=== PATIENT | female | born 1955 | race Caucasian/White ===

== ENCOUNTER 2022-11-21 16:25 | Outpatient (REF) | payer MEDICAID, SELFPAY ==
--- NOTE | ~2022-11-21 | US_ITS ---
EXAMINATION: US PELVIS CLINICAL INFORMATION: Postmenopausal bleeding. COMPARISON: None available. TECHNIQUE: Ultrasound of the pelvis is performed using both transabdominal and transvaginal transducers along with Doppler. Transvaginal imaging is performed due to inadequate visualization transabdominally. FINDINGS: Uterus: The uterus is anteverted and measures 6.7 x 2.5 x 3.3 cm. The double wall endometrial thickness is 4 mm. The uterus is smooth in contour and has normal myometrial echogenicity. No visible fibroid. Adnexa: Neither ovary is seen. US/US pelvic and transvaginal IMPRESSION: Nonvisualization of the ovaries. No uterine mass. Endometrial stripe measures 4 mm.
== END 2022-11-21 16:26 | disposition home or self-care (01) ==
LOC: HO.US 16:25
PROVIDERS: PCP Internal Medicine; Visit Provider Internal Medicine
DX: N95.0 Postmenopausal bleeding (principal)
CPT/HCPCS: 76830; 76856

== ENCOUNTER 2022-12-18 10:40 | Outpatient (REF) | payer MEDICAID, SELFPAY ==
--- NOTE | ~2022-12-18 | XR_ITS ---
EXAMINATION: LEFT KNEE AND LUMBAR SPINE CLINICAL INFORMATION: Pain COMPARISON: January 19, 2018 TECHNIQUE: 4 view left knee and three-view lumbar sacral spine. FINDINGS: Left knee: There is some mild spurring about the medial and lateral joint space compartments without significant narrowing. There is severe narrowing of the lateral patellofemoral joint space with marginal spurring. This has progressed since prior study of January 19, 2018. No effusion is appreciated. There is some calcification seen about the posterior knee which may represent calcification within popliteal fossa cyst. Lumbosacral spine: No acute fracture or spondylolysis is appreciated. There is a mild grade 1 spondylolisthesis L4-L5. There is some mild narrowing of the L5-S1 disc space. There is facet arthropathy present at the L4-S1 levels on the right. There is mild scoliosis convex left. Pedicles appear intact. No evidence of widening or fusion of sacroiliac joints. There is question of an old coccygeal fracture. XR/XR lumbar spine 2-3V IMPRESSION: Severe degenerative change of the patellofemoral joint. Question popliteal fossa cyst with calcification. Degenerative change of the lumbosacral spine as described.
--- NOTE | ~2022-12-18 | XR_ITS ---
EXAMINATION: LEFT KNEE AND LUMBAR SPINE CLINICAL INFORMATION: Pain COMPARISON: January 19, 2018 TECHNIQUE: 4 view left knee and three-view lumbar sacral spine. FINDINGS: Left knee: There is some mild spurring about the medial and lateral joint space compartments without significant narrowing. There is severe narrowing of the lateral patellofemoral joint space with marginal spurring. This has progressed since prior study of January 19, 2018. No effusion is appreciated. There is some calcification seen about the posterior knee which may represent calcification within popliteal fossa cyst. Lumbosacral spine: No acute fracture or spondylolysis is appreciated. There is a mild grade 1 spondylolisthesis L4-L5. There is some mild narrowing of the L5-S1 disc space. There is facet arthropathy present at the L4-S1 levels on the right. There is mild scoliosis convex left. Pedicles appear intact. No evidence of widening or fusion of sacroiliac joints. There is question of an old coccygeal fracture. XR/XR knee LT 4V IMPRESSION: Severe degenerative change of the patellofemoral joint. Question popliteal fossa cyst with calcification. Degenerative change of the lumbosacral spine as described.
== END 2022-12-18 10:41 | disposition home or self-care (01) ==
LOC: HO.HHCX 10:40
PROVIDERS: Visit Provider Internal Medicine
DX: M54.50 Low back pain, unspecified (principal); M25.562 Pain in left knee
CPT/HCPCS: 72100; 73564

== ENCOUNTER → 2023-09-15 11:34 | Outpatient (BNVA) | payer MEDICAID, SELFPAY | PROVIDERS: PCP Internal Medicine; Visit Provider Internal Medicine Nephrology | DX: I12.9 Hypertensive chronic kidney disease with stage 1 through stage 4 chronic kidney disease, or unspecified chronic kidney disease (principal); N18.31 Chronic kidney disease, stage 3a; Z79.899 Other long term (current) drug therapy | CPT/HCPCS: 99202 ==

== ENCOUNTER 2023-09-17 | Outpatient (REF) | payer MEDICAID, SELFPAY ==
[2023-09-18 16:22] LABS: Total Volume 24 Hour Urine 2350 mL
[2023-09-18 16:30] LABS: Creatinine, 24Hr Urine 1.1 G/Day (1.0-2.0); Protein 24 Hr Urine < 165 mg/Day (<150); Protein mg/dL < 7 mg/dL
== END 2023-09-17 00:01 | disposition home or self-care (01) ==
LOC: HO.LNP
PROVIDERS: Visit Provider Internal Medicine Nephrology
DX: I12.9 Hypertensive chronic kidney disease with stage 1 through stage 4 chronic kidney disease, or unspecified chronic kidney disease (principal); N18.30 Chronic kidney disease, stage 3 unspecified
CPT/HCPCS: 84156

== ENCOUNTER 2023-09-23 14:46 | Outpatient (REF) | payer MEDICAID, SELFPAY ==
[2023-09-24 02:34] LABS: CT PCR NOT DETECTED (Not Detect.); NG PCR NOT DETECTED (Not Detect.)
[2023-09-24 12:56] LABS: BV Int Neg Control Negative (Negative); BV Int Pos Control Positive (Positive)
== END 2023-09-23 14:47 | disposition home or self-care (01) ==
LOC: HO.LAB 14:46
PROVIDERS: PCP Internal Medicine; Visit Provider Advanced Practice Midwife
DX: N95.0 Postmenopausal bleeding (principal)
CPT/HCPCS: 0353U; 58100; 87480; 87510; 87624; 87660; 88142; 88305; 99212

== ENCOUNTER 2023-09-23 14:46 | Outpatient (AMB) | payer MEDICAID, SELFPAY ==
--- NOTE | 2023-09-23 14:51 | MHC.OFFVIS ---
Intake Vital Signs 09/23/23 14:52 Weight 246 lb BP 134/78 Intake Visit Reasons: PMB/PCP referral Intake Note: Daughter in Law Meirem Office Coordinator Receptionist Required: Yes Office Coordinator Receptionist Language: Slovak Office Coordinator Receptionist Name: Daughter in Law Information Interpreted: non-clinical & clinical Explosive Operator Grenade: Explosive Operator Grenade Present (Selene) Accompanied by: Daughter Allergies No Known Allergies Allergy (Verified 09/23/23 14:52) HPI HPI Comments History of Present Illness Details Patient is here today for postmenopausal bleeding she bled an episode last year in 2 episodes of slight pink spotting this year. She is not sexually active. No pertinent dock loader records available. Her [id number] (Penny) is present and requested to be her arresting gear operator and not use [place] arresting gear operator services. Refusal form for arresting gear operator services were signed. [facility] Medical History Right foot pain Depression Chronic bilateral low back pain without sciatica Chronic pain of left knee Abdominal pain Vitamin B12 deficiency Dyslipidemia Chronic kidney disease, stage 3b Postmenopause bleeding Varicose veins of both lower extremities with pain Prediabetes Iron deficiency anemia Hypertension Gout Anemia Surgical History H/O section Family History Sister Coronary artery disease Brother Alzheimer disease Maternal Grandmother Liver cancer Social History Alcohol intake: never Patient Tobacco Use Status: Never used Tobacco Female Reproductive History Menstrual Total pregnancies: 6 Full term: 4 Number of Living Children: 4 Ab spontaneous: 2 Review of Systems Const All systems reviewed & are unremarkable except as noted in HPI and below Physical Exam Vital Signs: Last Vital Signs BP 134/78 09/23/23 14:52 Const General: cooperative, healthy appearing and no acute distress Orientation/consciousness: patient oriented x3 GI Inspection: Yes normal to inspection Palpation (GI): Soft to palpation and Other GI palpation findings present (Nontender) Rectal Exam - Female: visual inspection normal General: Yes bladder normal to palpation External Female Exam: normal appearance of the urethra Speculum Exam - Vagina: normal appearance of the vagina, normal palpation, normal vaginal discharge and vagina atrophic Speculum Exam - Cervix: normal appearance of the cervix and normal palpation Bimanual exam- vagina & uterus: normal bimanual exam, normal palpation, uterine size normal, bladder normal to palpation, normal palpation, uterine shape normal and non-tender Bimanual Exam- Adnexa, other: normal adnexae Neuro General: patient oriented x3 Office Procedures Endometrial Biopsy Details: The patient is here today for an endometrial biopsy due to PMB to rule out any pathology including atypical, hyperplasia or cancer cells of the uterus. She was counseled regarding anticipatory guidance for the procedure including the risks for pain, infection, bleeding, perforation, potential injury to the tissues may include the cervix, uterus, tubes, bladder and bowels. These injuries may include further treatment and evaluation including surgery, blood transfusions, antibiotics, hospitalizations and anesthesia. Permanent injury and scarring can occur. She was consented for the procedure, and the consent forms were signed. She is agreeable to have the procedure today. All questions were answered. Endometrial Biopsy Procedure: The patient was placed in the dorsal lithotomy position and a sterile speculum inserted. Using aseptic technique for the procedure. The cervix was cleansed with Betadine x 3 swabs. A single toothed tenaculum was placed on the cervix for stabilization and the uterus was sounded to 5 cm with a 4mm pipelle for 1 pass. Minimal tissue sample retrieved. Patient had difficulty tolerating the procedure and asked for it to be stopped. Minimal bleeding was observed. The tissue sample was placed in formalin in a patient labeled container by staff assisting and sent to the pathology department for processing and interpretation. The patient tolerate the procedure well and was in good condition when leaving the department. Endometrial Biopsy Post Procedure Care: Nothing in the vagina including: tampons, douching or intimacy until all the bleeding has subsided. There may be some post procedure bleeding for several days, this bleeding is usually light and may turn to a light brown or pink color. Mild cramps may occurs. Nothing in the vaginal including: tampons, douching, or intimacy until all the bleeding has subsided. You may take an over the counter mild analgesic such as Tylenol or Advil (if no allergies) per the manufactures recommendation on dosing, frequency, and follow the directions completely. Call the office if any: fever (over 100.4), flu like symptoms, abdominal pain (worse than cramping), foul smelling, infected appearing vaginal discharge, or heavy bleeding. If indicated: Use condoms to prevent and STI's, and only after the bleeding has stopped completely. Discuss options due to the intolerance of the procedure, she is interested in being put to sleep and prefers a female provider. Referral will be placed to [facility] for an endometrial biopsy due to postmenopausal bleeding. All of her questions and concerns were addressed to the best of my ability and shared decision making. She is agreeable to the plan of care. This note is constructed using voice recognition software. While every effort has been made to ensure accuracy, cable tv installer errors may have been included. [id number] Biopsy Results Reviewed Results Reviewed: [address] [address] Ultrasound Report Signed Patient: Cat Hernandez MR#: [id number] : 1955 Acct:[id number] Age/Sex: 67 / F ADM Date: 11/21/22 Loc: .[place] Attending Dr: Andreina Krishna MD Ordering Physician: Andreina Mansfield MD Date of Service: 11/21/22 Procedure(s): US pelvic and transvaginal Accession Number(s): [id number] cc: Andreina Mansfield MD~ EXAMINATION: US PELVIS CLINICAL INFORMATION: Postmenopausal bleeding. COMPARISON: None available. TECHNIQUE: Ultrasound of the pelvis is performed using both transabdominal and transvaginal transducers along with Doppler. Transvaginal imaging is performed due to inadequate visualization transabdominally. FINDINGS: Uterus: The uterus is anteverted and measures 6.7 x 2.5 x 3.3 cm. The double wall endometrial thickness is 4 mm. The uterus is smooth in contour and has normal myometrial echogenicity. No visible fibroid. Adnexa: Neither ovary is seen. US/US pelvic and transvaginal IMPRESSION: Nonvisualization of the ovaries. No uterine mass. Endometrial stripe measures 4 mm. Dictated By: Deondre Ndiaye MD Signed By: <Electronically signed by Deondre Ndiaye MD in OV> 11/24/22 1455 DD/ 1641 TD/TT: Bobbin Cleaner Hand: ALONZO Assessment & Plan Assessment & Plan (1) Postmenopausal bleeding: Code(s): N95.0 - Postmenopausal bleeding Plan Discussed: Referral to [facility] for a female provider to assess the postmenopausal bleeding. Pap smear obtained await results along with the cervical cultures. All of her questions and concerns were addressed to the best of my ability and shared decision making. She is agreeable to the plan of care. This note is constructed using voice recognition software. While every effort has been made to ensure accuracy, cable tv installer errors may have been included. Orders: Orders Bacterial Vaginosis Panel 09/23/23 N95.0 - Postmenopausal bleeding CT NG by PCR 09/23/23 N95.0 - Postmenopausal bleeding Surgical 09/23/23 N95.0 - Postmenopausal bleeding Pap Smear 09/23/23 N95.0 - Postmenopausal bleeding Referrals [facility] FORMER Referral N95.0 - Postmenopausal bleeding Coding Level of Care Code New Pt Level 4 (02561) Diagnoses Postmenopausal bleeding N95.0 CPT Codes Endometrial Biopsy - CPT: 61075-Gigzpycpqhm Biopsy ([id number])
[2023-09-23 14:52] VITALS: BP 134/78
== END 2023-09-23 16:00 | disposition home or self-care (01) ==
LOC: HO.HWS 14:46
PROVIDERS: PCP Internal Medicine; Visit Provider Advanced Practice Midwife
DX: N95.0 Postmenopausal bleeding (principal)
CPT/HCPCS: 58100; 99204

== ENCOUNTER 2023-09-23 15:45 | Outpatient (REF) | payer MEDICAID, SELFPAY ==
[2023-09-29 04:18] LABS: HPV mRNA E6/E7 rflx Not Detected (Not Detected)
== END 2023-09-23 15:46 | disposition home or self-care (01) ==
LOC: HO.LNP 15:45
PROVIDERS: Visit Provider Advanced Practice Midwife
DX: Z12.4 Encounter for screening for malignant neoplasm of cervix (principal); Z11.51 Encounter for screening for human papillomavirus (HPV); N95.0 Postmenopausal bleeding
CPT/HCPCS: 87624; 88142

== ENCOUNTER 2023-09-30 10:04 | Outpatient (REF) | payer MEDICAID, SELFPAY ==
--- NOTE | ~2023-09-30 | US_ITS ---
EXAMINATION: US RETROPERITONEAL LIMITED (RENAL ONLY) CLINICAL INFORMATION: Chronic kidney disease, stage 3 unspecified. Hypertension. COMPARISON: None available. TECHNIQUE: Real-time imaging of the kidneys. Technically limited study secondary to bowel gas and body habitus. FINDINGS: RIGHT KIDNEY: 10.4 x 4.6 x 4.4 cm (SAG x AP x TRV). The parenchyma appears echogenic. No suspicious mass or hydronephrosis. Vascular calcifications are suspected. No definite calculi. LEFT KIDNEY: 10.0 x 4.6 x 4.0 cm (SAG x AP x TRV). The parenchyma appears echogenic. No suspicious mass or hydronephrosis. Vascular calcifications are suspected. No definite calculi. US/US renal BI IMPRESSION: Echogenic renal parenchyma suggestive of chronic kidney disease. No hydronephrosis.
== END 2023-09-30 10:05 | disposition home or self-care (01) ==
LOC: HO.US 10:04
PROVIDERS: PCP Internal Medicine; Visit Provider Internal Medicine Nephrology
DX: N18.30 Chronic kidney disease, stage 3 unspecified (principal)
CPT/HCPCS: 76775

== ENCOUNTER 2023-10-07 15:55 | Outpatient (REF) | payer MEDICAID, SELFPAY ==
--- NOTE | ~2023-10-07 | XR_ITS ---
EXAMINATION: XR knee RT 3V CLINICAL INFORMATION: Reason for Exam pain in RLE x 2 months no injury COMPARISON: 12/18/2022 TECHNIQUE: Four views of the right knee FINDINGS: * Diffuse osteopenia. No acute fracture or dislocation. Severe degenerative changes of the right knee joint with tricompartmental osteophytosis and joint space narrowing. * No soft tissue abnormality. XR/XR knee RT 3V IMPRESSION: Severe degenerative changes of the right knee joint. No acute fracture or dislocation.
--- NOTE | ~2023-10-07 | XR_ITS ---
EXAMINATION: XR lumbar spine 4V min CLINICAL INFORMATION: Reason for Exam radiculopathy to RLE assess for herniation or spondylosis COMPARISON: Lumbar spine radiographs 12/18/2022 TECHNIQUE: 4 views of the lumbar spine FINDINGS: 5 nonrib-bearing lumbar-type vertebral bodies. Vertebral body heights are maintained. Anterolisthesis of L4 on L5 Moderate multilevel degenerative disc disease with loss of disc space height, facet arthropathy and disc osteophyte complexes. This is worst at L4/L5. Paravertebral soft tissues are unremarkable. XR/XR lumbar spine 4V min IMPRESSION: Moderate spondylosis of the lumbar spine, as above detailed.
== END 2023-10-07 15:56 | disposition home or self-care (01) ==
LOC: HO.HHCX 15:55
PROVIDERS: Visit Provider Emergency Medicine
DX: M54.16 Radiculopathy, lumbar region (principal)
CPT/HCPCS: 72110; 73562

== ENCOUNTER 2023-11-03 15:56 | Outpatient (REF) | payer MEDICAID, SELFPAY ==
[2023-11-03 17:53] LABS: MANUAL DIFF FLAG NO
[2023-11-03 18:05] LABS: Basophils Percent Auto 0.6 % (0-2); Eosinophils Absolute Auto 0.1 X10*3/uL (0.0-0.4); Eosinophils Percent Auto 0.9 % (0-4); Hematocrit 38.1 % (37.0-47.0); Hemoglobin 12.3 g/dl (12.0-16.0); Imm Gran Abs Auto 0.02 X10*3/uL (0.00-0.03); Imm Gran Pct Auto 0.3 % (0.0-0.4); Lymphocytes Absolute Auto 1.5 X10*3/uL (1.2-4.9); Lymphocytes Percent Auto 23.1 % (20-40); Mean Corpuscular HGB Conc 32.3 g/dl (31.0-35.0); Mean Corpuscular Hemoglobin 27.3 pg (27.0-33.0); Mean Corpuscular Volume 84.5 fL (80.0-98.0); Mean Platelet Volume 11.7 fL (9.4-12.3); Monocytes Absolute Auto 0.7 X10*3/uL (0.1-1.2); Monocytes Percent Auto 9.7 % (2-11); Neutrophils Absolute Auto 4.4 x10*3/uL (2.0-8.3); Neutrophils Percent Auto 65.4 % (45-73); Platelet Count 262 X10*3/uL (160-400); Red Blood Count 4.51 X10*6/uL (4.20-5.50); Red Cell Distribution Width 13.7 % (11.0-16.0); White Blood Count 6.7 X10*3/uL (4.8-10.8)
[2023-11-03 18:12] LABS: Estimated Average Glucose 114 mg/dL; Hemoglobin A1c % 5.6 % (<6.0)
[2023-11-03 18:49] LABS: Folate 11.7 ng/mL (> or = 4.0); Vitamin B12 1638 pg/mL (200-900)
[2023-11-03 18:51] LABS: Anion Gap 17 (12-20); Blood Urea Nitrogen 32 mg/dL (9-16); Calcium 9.2 mg/dL (8.4-10.2); Carbon Dioxide 26 mmol/L (22-29); Chloride 101 mmol/L (96-108); Estimated Glomerular Filt Rate 45; Glucose Random 80 mg/dL (60-115); Magnesium 2.2 mg/dL (1.6-2.6); Potassium 4.2 mmol/L (3.3-5.1); Sodium 140 mmol/L (135-145); Uric Acid 7.4 mg/dL (2.4-5.7)
[2023-11-03 19:09] LABS: TSH reflex Free T4 0.89 uIU/mL (0.32-4.0); Vitamin D 25-OH Total 51.9 ng/mL (>30)
[2023-11-06 11:49] LABS: Methylmalonic Acid 178 nmol/L (87-318)
== END 2023-11-03 15:57 | disposition home or self-care (01) ==
LOC: HO.HHCL 15:56
PROVIDERS: Visit Provider Internal Medicine
DX: Z00.00 Encounter for general adult medical examination without abnormal findings (principal); M79.604 Pain in right leg; N18.32 Chronic kidney disease, stage 3b
CPT/HCPCS: 36415; 80048; 82306; 82607; 82746; 83036; 83735; 83921; 84443; 84550; 85025

== ENCOUNTER 2024-05-03 11:07 | Outpatient (REF) | payer MEDICAID, SELFPAY ==
[2024-05-03 14:34] LABS: Alanine Aminotransferase 18 U/L (0-31); Albumin Level 4.1 g/dL (3.5-5.0); Alkaline Phosphatase 103 U/L (39-117); Anion Gap 16 (12-20); Aspartate Amino Transferase 21 U/L (5-31); Bilirubin Direct 0.1 mg/dL (0.0-0.5); Bilirubin Total 0.3 mg/dL (0.0-1.0); Blood Urea Nitrogen 31 mg/dL (9-16); Calcium 9.8 mg/dL (8.4-10.2); Carbon Dioxide 29 mmol/L (22-29); Chloride 101 mmol/L (96-108); Cholesterol 187 mg/dL (<200); Estimated Glomerular Filt Rate 38; Glucose Random 83 mg/dL (60-115); HDL Cholesterol 67 mg/dL (>40); LDL Cholesterol Calculated 96 mg/dL (<100); Potassium 5.5 mmol/L (3.3-5.1); Sodium 140 mmol/L (135-145); Total Protein 7.3 g/dL (6.5-8.0); Triglycerides 120 mg/dL (<150)
== END 2024-05-03 11:08 | disposition home or self-care (01) ==
LOC: HO.HHCL 11:07
PROVIDERS: Visit Provider Internal Medicine
DX: Z00.00 Encounter for general adult medical examination without abnormal findings (principal); I10 Essential (primary) hypertension
CPT/HCPCS: 36415; 80048; 80061; 80076

== ENCOUNTER 2024-08-04 12:24 | Outpatient (REF) | payer MEDICAID, SELFPAY ==
--- OUTSIDE RECORDS SUMMARY | 2024-08-04 12:36 | XMS_ITS | Clinical Summary ---
Author Organization [employer] Address [address] [facility] [address] [place] [address] Care Team Providers Care Counter Attendant Name Role Phone Andreina Mansfield MD Primary Care Provide r Allergies No known active allergies Medications * This document contains information received from the source organization and may not represent a complete record from that organization. UNABLE TO FIND Take 600 mg by mouth Once daily. Diovenor Active Blood Pressure Monitor kitIndications:P rimary hypertension Use as directed 3x/week 1 kit 3 Active cholecalciferol (Vitamin D-3) 50 MCG (2000 UT) capsule Take 1 capsule (50 mcg) by mouth Once per day. 90 capsule 3 4 Active cyanocobalamin (Vitamin B-12) 1000 MCG tabletIndication s:Vitamin B12 deficiency Take 1 tablet (1,000 mcg) by mouth Once per day. 90 tablet 3 4 11/12/19 25 Active gabapentin (Neurontin) 300 MG capsuleIndicatio ns:Right leg pain Take 1 capsule (300 mg) by mouth 3 times daily. 270 capsule 3 4 11/18/19 25 Active pravastatin (Pravachol) 40 MG tabletIndication s:Primary hypertension Take 1 tablet (40 mg) by mouth Once per day. 90 tablet 3 4 11/18/19 25 Active citalopram (CeleXA) 10 MG tabletIndication s:Depression, unspecified depression type Take 1 tablet (10 mg) by mouth in the morning. 90 tablet 3 4 Active triamcinolone (Kenalog) 0.1 % creamIndications :Rash Apply topically 2 times daily. 45 g 1 4 Active Diclofenac Sodium 1 % gelIndications:C hronic bilateral low back pain without sciatica Apply 1 Application topically every 12 (twelve) hours if needed (apply if needed). 150 g 2 4 Active amLODIPine (Norvasc) 10 MG tabletIndication s:Primary hypertension Take 1 tablet (10 mg) by mouth Once per day. 30 tablet 11 4 05/03/20 25 Active hydroCHLOROthiaz marcello 12.5 MG tabletIndication s:Primary hypertension Take 1 tablet (12.5 mg) by mouth Once per day. 30 tablet 11 4 05/03/20 25 Active ferrous sulfate (FeroSul) 325 (65 Fe) MG tabletIndication s:Anemia, unspecified type TAKE 1 TABLET BY MOUTH EVERY DAY 90 tablet 1 4 Active Active Problems Problem Noted Date Diagnosed Date Class 3 severe obesity due t o excess calories with serious comorbidity and body mass index (BMI) of 40.0 to 44.9 in adult 08/04/2024 Bruise 08/04/2024 Rash 05/03/2024 Atypical chest pain 05/03/2024 Assessment & Plan (05/03/2024 10:46 AM EST): Cardiology referral Hyperkalemia 05/03/2024 Right leg pain 11/03/2023 Assessment & Plan (11/19/2023 2:00 PM EDT): Improved with gabapentin 300mg Q 8hrs Assessment & Plan (11/03/2023 4:57 PM EDT): Neuropathic pain? Painful varicose veins? I will order b12 and folate acid A1c to be check also I will increase her gabapentin I advise to take acetaminophen 1000mg Q 8hrs if needed Continue to follow with vascular Encounter for preventive care 11/03/2023 Assessment & Plan (11/03/2023 4:59 PM EDT): See HPI Asymptomatic menopausal state 11/03/2023 Moderate anxiety 09/22/2023 Right foot pain 07/15/2023 Abdominal pain 12/18/2022 Assessment & Plan (12/18/2022 10:01 AM EDT): I will ordered labs and patient will be contacted about results I discontinue her atorvastatin and prescribed pravastatin instead I ordered and abdominal US Chronic pain of left knee 12/18/2022 Chronic bilateral low back pain without sciatica 12/18/2022 Assessment & Plan (05/03/2024 10:47 AM EST): C/w PT Acetaminophen PRN Diclofenac gel PRN Depression, unspecified 12/18/2022 Assessment & Plan (05/03/2024 10:47 AM EST): Counseling done [facility] called today Patient will like to have an maori speaking therapist Assessment & Plan (09/22/2023 2:39 PM EDT): PROGRESS NOTE: ID: Cat is a 68 y.o. White cis-female with previous documented hx of Depression No previous hx of MH services; who presents for anxiety and depressive sxs. Currently lives with son, his and grand children. 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 Struggling with divorce that occurred 2 years ago. During IBH Consult Cat presenting with loss of interests/pleasure , changes in sleep difficulty falling asleep and difficulty staying asleep , trouble concentrating, fatigue/loss of energy and excessive worry/anxiety, difficulty controlling worry, restless/keyed up/On edge, easily fatigued, difficulty concentrating/Mind going blank , irritability, muscle tension, and sleep disturbance difficulty falling asleep and difficulty staying asleep ; for a period of 18+ mo, for all symptoms in the context of divorce/separation, loneliness, helplessness, and lack of social support. PLAN: New/Additional Services needed Off-site services for Behavioral Health Integration Plan External OP therapy referral and OP psychiatry Referral Patient Self Plan Patient to reach out to [facility] team as needed, Comply with medication , and continue to using effective coping mechanisms. Assessment & Plan (08/12/2023 9:41 AM EST): C/w citalopram 10mg daily Referral to [facility] today RTC 3 months Assessment & Plan (07/15/2023 12:43 PM EST): I will start her on citalpram 10mg daily Patient will go to maori speaking therapist RTC 4 weeks televisit Assessment & Plan (12/22/2022 4:20 PM EDT): Assessment: Patient with depression (periods of depressed mood, irritability, increased sadness, and bitterness). Symptoms are in the context of biopsychosocial stressors of a history of trauma in childhood and adulthood. Patient will benefit from OP therapy referral. At this time Cat Hernandez meets criteria for Visit Diagnoses: Problem List Items Addressed This Visit Other Depression, unspecified Patient ready to address current needs Yes Strengths include family support PLAN: 1. Follow up with [facility]: Not recommended for follow-up 2. Patient goal is to engage in OP therapy 3. Behavioral Recommendations a. Decrease depression symptoms b. Increase coping mechanisms Stage 3b chronic kidney disease 11/21/2022 Assessment & Plan (05/03/2024 10:46 AM EST): BMP ordered Continue to follow with nephrology Assessment & Plan (11/21/2022 2:27 PM EDT): Patient educated to drink plenty of water avoid nephrotoxic medications like NSAIDs, control blood pressure She is aware a I referred her to nephrology Dyslipidemia 11/21/2022 Assessment & Plan (05/03/2024 10:48 AM EST): Today extensive discussion was done about life style modifications I advise healthy diet (low calorie) and cardiovascular exercise Assessment & Plan (11/21/2022 2:28 PM EDT): Today extensive discussion was done about life style modifications I advise healthy diet (low calorie) and cardiovascular exercise Vitamin B12 deficiency 11/21/2022 Assessment & Plan (11/19/2023 1:59 PM EDT): Now resolved Assessment & Plan (11/21/2022 2:27 PM EDT): Supplementation prescribed Encounter for preventative adult health care exa yue 10/30/2022 Assessment & Plan (10/31/2022 4:32 PM EDT): Please refer to HPI Postmenopause bleeding 10/30/2022 Assessment & Plan (08/12/2023 9:41 AM EST): I ask them to please be sure and verified if the ticket sorter that they want is going to accept her insurance and then give us a call back and ill be happy to put the new referral Encounter for screening mamm ogram for malignant neoplasm of breast 10/30/2022 Iron deficiency anemia 08/07/2022 Prediabetes 08/07/2022 Assessment & Plan (11/03/2023 4:58 PM EDT): Today extensive discussion was done about life style modifications I advise healthy diet (low calorie) and cardiovascular exercise A1c will be check Assessment & Plan (11/21/2022 2:27 PM EDT): Today extensive discussion was done about life style modifications I advise healthy diet (low calorie) and cardiovascular exercise Assessment & Plan (10/31/2022 4:35 PM EDT): Today extensive discussion was done about life style modifications I advise healthy diet (low calorie) and cardiovascular exercise Anemia 09/24/2018 Assessment & Plan (10/31/2022 4:35 PM EDT): CBC will be check with labs Gout 01/28/2018 Varicose veins of both lower extremities with pa in 01/28/2018 Assessment & Plan (10/31/2022 4:35 PM EDT): Continue to follow with specialist Hypertension 11/27/2017 Assessment & Plan (05/03/2024 10:46 AM EST): Maintenance: BMP: ordered today Lipid Panel: up today ASCVD Risk: 13.1%, on pravastatin 40mg daily - Aerobic exercise to reduce BP. Initial goal of 30 min walk 3-5x/week. Increase as tolerated. - low-sodium diet (goal: <2g/day) and heart healthy diet such as DASH to reduce BP and prevent ASCVD. - Home BP monitoring 1-2 x day with goal of <140/90. - Seek immediate medical attention for chest pain, palpitations, SOB, syncope, or sudden changes in mental status. - Do not change or discontinue current prescriptions without first consulting health care provider Assessment & Plan (11/19/2023 1:59 PM EDT): Controlled it was advise: - Aerobic exercise to reduce BP. Initial goal of 30 min walk 3-5x/week. Increase as tolerated. - low-sodium diet (goal: <2g/day) and heart healthy diet such as DASH to reduce BP and prevent ASCVD. - Home BP monitoring 1-2 x day with goal of <140/90. - Seek immediate medical attention for chest pain, palpitations, SOB, syncope, or sudden changes in mental status. - Do not change or discontinue current prescriptions without first consulting health care provider Assessment & Plan (11/03/2023 4:56 PM EDT): - Aerobic exercise to reduce BP. Initial goal of 30 min walk 3-5x/week. Increase as tolerated. - low-sodium diet (goal: <2g/day) and heart healthy diet such as DASH to reduce BP and prevent ASCVD. - Home BP monitoring 1-2 x day with goal of <140/90. - Seek immediate medical attention for chest pain, palpitations, SOB, syncope, or sudden changes in mental status. - Do not change or discontinue current prescriptions without first consulting health care provider Assessment & Plan (08/12/2023 9:40 AM EST): Continue with current interventions Assessment & Plan (07/15/2023 12:42 PM EST): Maintenance: BMP: up to date Lipid Panel: up to date ASCVD Risk:on pravastatin patient did not tolerated atorvastatin Its advise: - Aerobic exercise to reduce BP. Initial goal of 30 min walk 3-5x/week. Increase as tolerated. - low-sodium diet (goal: <2g/day) and heart healthy diet such as DASH to reduce BP and prevent ASCVD. - Home BP monitoring 1-2 x day with goal of <140/90. - Seek immediate medical attention for chest pain, palpitations, SOB, syncope, or sudden changes in mental status. - Do not change or discontinue current prescriptions without first consulting health care provider RTC 4 weeks BP log Assessment & Plan (12/18/2022 10:01 AM EDT): Controlled continue with current medications Assessment & Plan (11/21/2022 2:26 PM EDT): Continue with current interventions Assessment & Plan (10/31/2022 4:34 PM EDT): Maintenance: BMP: ordered today Lipid Panel: ordered today - Aerobic exercise to reduce BP. Initial goal of 30 min walk 3-5x/week. Increase as tolerated. - low-sodium diet (goal: <2g/day) and heart healthy diet such as DASH to reduce BP and prevent ASCVD. - Home BP monitoring 1-2 x day with goal of <140/90. - Seek immediate medical attention for chest pain, palpitations, SOB, syncope, or sudden changes in mental status. - Do not change or discontinue current prescriptions without first consulting health care provider Resolved Problems Problem Noted Date Diagnosed Date Resolved Date Left foot pain 07/15/2023 07/15/2023 Encounters * This document contains information received from the source organization and may not represent a complete record from that organization. Date Type Department Care Team Description 08/04/2024 11:00 AM EST Office Visit [facility] [address] [place] [phone] Andreina Mansfield MD Primary hypertension (Primary Dx); Dietary counseling; Exercise counseling; Encounter for screening mammogram for malignant neoplasm of breast; Screening for colon cancer; Class 3 severe obesity due to excess calories with serious comorbidity and body mass index (BMI) of 40.0 to 44.9 in adult (CMS/HCC); Bruise 07/22/2024 Patient Outreach [facility] [address] [place] [address] Andreina Mansfield MD Pre-visit Planning ((Unable to reach for PVP screening, LVM)) 06/24/2024 Travel 05/16/2024 Refill [facility] [address] [place] [address] Andreina Mansfield MD Anemia, unspecified type from Last 3 Months Immunizations Name Administration Dates Next Due Influenza injectable quadrivalent preservative f ree 05/14/2021,06/29/2018 Pfizer Covid-19 Vaccine 12+ 10/19/2020, Tdap 12/25/2020 Zoster, live 06/29/2018 Family History Medical History Relation Name Comments Alzheimer's disease Brother Tuberculosis Brother Liver cancer Maternal Grandmother Coronary artery disease Sister Relation Name Status Comments Brother Maternal Grandmother Sister Social History Tobacco Use Types Packs/Day Years Used Date Smoking Tobacco: Never Passive Smoke Exposure: Never Smokeless Tobacco: Never Tobacco Cessation:Counseling Given: Not Answered Alcohol Use Standard Drinks/Week Comments Never 0 (1 standard drink = 0.6 oz pur e alcohol) Depression Answer Date Recorded Patient Health Questionnaire-9 Score 0 08/04/2024 Patient Health Questionnaire-9 Score 0 08/04/2024 Last PHQ-9: Questionnaire Data Not on file 0 08/04/2024 Housing Stability Answer Date Recorded What is your housing situation today? I have neel ortez 04/06/[address] you li ve. Do you have problems with any of the following? None of the above 04/06/2023 Food Insecurity Answer Date Recorded Within the past 12 months, y ou worried that your food would run out before you got money to buy more: Never True 04/06/2023 Within the past 12 months,th e food you bought just didn't last and you didn't have enough money to get more: Never True Transportation Answer Date Recorded In the past 12 months, has l ack of transportation kept you from medical appts, meetings, work or from getting things needed for daily living? No 04/06/2023 Utilities Answer Date Recorded In the past 12 months, has t he electric, gas, oil or water company threatened to shut off services in your home? No 04/06/2023 Depression Answer Date Recorded Patient Health Questionnaire-2 Score 0 08/04/2024 Internet Access Answer Date Recorded Internet Access Q1 No 08/04/2024 Internet Access Q2 I do not want or need it 07/23 Comments Unknown Sex and Gender Information Value Date Recorded Sex Assigned at Female 04/21/2022 10:29 AM EDT Legal Sex Female 10:29 AM EDT Gender Identity Female 04/21/2022 10:29 AM EDT Sexual Orientation Straight 04/21/2022 10 :29 AM EDT Last Filed Vital Signs Vital Sign Reading Time Taken Comments Blood Pressure 155/81 08/04/2024 11:16 AM EST Pulse 75 08/04/2024 11:16 AM EST Temperature 35.4 ??C (95.7 ??F) 08/04/2024 11:[address] Respiratory Rate 18 08/04/2024 11:16 AM EST Oxygen Saturation 97% 08/04/2024 11:16 AM EST Inhaled Oxygen Concentration - - Weight 122 kg (268 lb) 08/04/2024 11:16 AM EST Height 172.7 cm (5' 8 ) 08/04/2024 11:16 AM EST Body Mass Index 40.75 08/04/2024 11:16 AM EST Plan of Treatment Upcoming Encounters Date Type Department Care Team (Late st Contact Info) Description 10/31/2024 1:00 PM EDT Office Visit [facility] [address] [place] [address] Lindsey Meeks, OD [address] [place] [address] 11/01/2024 2:30 PM EDT Office Visit [facility] [address] [place] [address] Andreina Mansfield MD [address] [place] [address] Health Maintenance Due Date Last Done Comments CT Colonography 1957 Colonoscopy 1957 Dental Prophylaxis 1957 Dental X-Ray: Full Mouth 1957 FIT DNA/Cologuard 1957 Sigmoidoscopy 1957 Hepatitis C Screening 1975 Pneumococcal Vaccine: 50+ Years (1 of 1 - PCV) 2007 RSV Patients and Patients Aged 60 years or older (1 - Risk 60-74 years 1-dose series) 2017 Zoster Vaccines (2 of 3) 08/24/2018 06/29/2018 Mammogram 01/12/2020 01/11/2018 Dental Oral Exam 02/08/2021 08/10/2020 Dental X-Ray: Bitewings 12/19/2021 12/18/2020, 08/10 Colorectal Cancer Screening 12/11/2023 FIT 12/11/2023 12/10/2022 FOBT 12/11/2023 12/10/2022 COVID-19 Vaccine ( season) 2024 05/15/2021, 10/19/2020, 09/28/2020 Influenza Vaccine (#1) 2024 05/14/2021, 2018 Diabetes: Hemoglobin A1C 11/02/2024 024, 10/30/2022, 10/30/2022, Additional history exists Alcohol/Substance Use Screening 05/03/2025 05/03/2024 Depression Screening 08/04/2025 08/04/2024, 08/04/19 25 SDOH Screening 08/04/2025 08/04/2024 Tobacco Screening 08/04/2025 08/04/2024 Lipid Panel 05/03/2029 05/03/2024, 0506/2022, 02/06/2021, Additional history exists DTaP/Tdap/Td Vaccines (2 - Td or Tdap) 12/25/2030 12/25/2020 Cervical Cancer Screening Discontinued HPV/Cotest Discontinued 05/14/2021 Pap Smear Discontinued 05/14/2021 HIB Vaccines Aged Out No longer eligi ble based on patient's age to complete this topic HPV Vaccines Aged Out No longer eligi ble based on patient's age to complete this topic Hepatitis A Vaccines Aged Out No long er eligible based on patient's age to complete this topic Hepatitis B Vaccines Aged Out No long er eligible based on patient's age to complete this topic IPV Vaccines Aged Out No longer eligi ble based on patient's age to complete this topic Meningococcal Vaccine Aged Out No alessio kisha eligible based on patient's age to complete this topic RSV under 20 months Aged Out No longe r eligible based on patient's age to complete this topic Rotavirus Vaccines Aged Out No longer eligible based on patient's age to complete this topic Procedures Procedure Name Priority Date/Time Associated Diagnosis Comments LIPID PANEL, STANDARD Routine 05/03/2024 11:09 AM EST Encounter for preventive care HEMOGLOBIN A1C Routine 11/03/2023 3:57 PM EDT Right leg pain Stage 3b chronic kidney disease (CMS/HCC) FECAL GLOBIN BY IMMUNOCHEMISTRY Routine 12/10/2022 12:00 AM EDT THINPREP IMAGING PAP AND HPV MRNA E6/E7 WITH REFLEX TO HPV 16,18/45 Routine 05/14/2021 4:29 PM EST BITEWING - SINGLE RADIOGRAPHIC IMAGE Routine 12/18/2020 12:00 AM EDT PERIODIC ORAL EVALUATION - ESTABLISHED PATIENT Routine 08/10/2020 12:00 AM EST BI MAMMOGRAM SCREENING BILATERAL Routine 01/11/2018 3:25 PM EDT from Last 3 Months or Most Recently Relevant to Health Maintenance Results * Lipid Panel, Standard (05/03/2024 11:09 AM EST) Triglycerides 120 <150 mg/dL [facility] Comment:Desirable Triglyceri de: less than 150 mg/dLBorderline High Triglyceride 150-199 mg/dLHigh Triglyceride: 200-499 mg/dLVery High Triglyceride: greater than or equal to 5OO mg/dL Cholesterol 187 <200 mg/dL [facility] Comment:Desirable Cholestero l: less than 200 mg/dLBorderline High Cholesterol: 200-239 mg/dLHigh Cholesterol: greater than 239 mg/dL LDL Cholesterol Calculated 96 <100 mg/dL [facility] Comment:Desirable LDL: less than 100 mg/dLNear Optimal/Above Optimal LDL: 110- 129 mg/dLBorderline High LDL: 130-159 mg/dLHigh LDL: 160-189 mg/dLVery High LDL: greater than or equal to 190 mg/dL HDL Cholesterol 67 >40 mg/dL [facility] Comment:Desirable HDL: great er than 40 mg/dL Note: This HDL assay may give artificially low results in patients with liver disease. Blood Venous blood specimen / Unknown 05/03/2024 11:09 AM EST 05/03/2024 1:15 PM EST Andreina Krishna MD LAB BLOOD ORDERABLES Final Result Performing Organization Address [facility] Co de Phone Number [facility] [address] [place] [address] [phone] * Hemoglobin A1c (11/03/2023 3:57 PM EDT) Hemoglobin A1c 5.6 <6.0 % [facility] Comment:Hemoglobin A1C Refer ence Range Adults: 4.8 - 6.0 % Non diabetic: < 6.0 % Goal: < 7.0 %Additional Action Suggested: > 8.0 %Note: Hemoglobin A1c results are invalid for patients with abnormal amounts of HbF. Blood transfusions may impact the HbA1c concentration in the patient sample. Estimated Average Glucose 114 mg/dL [facility] Comment:eAG = Estimated ave rage glucose which is %A1C expressed asaverage glucose, using the formula of the P8T-VxcqugzSfeyhfv Glucose study (ADAG), Diabetes Care, Vol.31,#8,Jan. 2007 Blood Venous blood specimen / Unknown 11/03/2023 3:57 PM EDT 11/03/2023 5:49 PM EDT Andreina Krishna MD LAB BLOOD ORDERABLES Final Result Performing Organization Address [facility] Co de Phone Number [facility] [address] [place] [address] [phone] * Fecal Globin by Immunochemistry (12/10/2022 12:00 AM EDT) Fecal Globin By Immunochemistry SEE NOTE [employer] Comment: ??FECAL GLOBIN BY IMMUNOCHEMISTRY ?Micro Number: ?[id number] ??Test Status: ? Final ??Specimen Source: ?? Insure (tm) fobt test card ??Specimen Quality: ??Adequate ??Fecal Globin: ?Not Detected ? Test results may be invalid as no date of ? collection was provided. Specimens are stable ? for 14 days. 12/10/2022 12/17/2022 1:0 4 PM EDT Narrative [facility] - 12/18/2022 10:41 AM EDT FASTING: UNKNOWN Andreina Krishna MD LAB BODY FLUIDS AND S TOOLS ORDERABLES Final Result [facility] [address] [place] [address], [place] [phone] [employer] [facility] [address] [place] [phone] * THINPREP TIS PAP AND HPV mRNA E6/E7 REFLEX HPV 16,18/45 (05/14/2021 4:29 PM EST) Clinical Information: None given [facility] COMMENT SEE COMMENT [facility] Comment: EXPLANATORY NOTE: ? The Pap is a screening test for cervical cancer. It is ?? not a diagnostic test and is subject to false negative ?? and false positive results. It is most reliable when a ?? satisfactory sample, regularly obtained, is submitted ?? with relevant clinical findings and history, and when ?? the Pap result is evaluated along with historic and ?? current clinical information. ?? COMMENT: This Pap test has been evaluated with computer assisted technology. [facility] [employer] Plater: SEE COMMENT [facility] Comment: SXA, CT(ASCP) CT screening location: [address] ??[address] HPV nRNA E6/E7 Not Detected Not Detected [facility] Comment: Methodology: Rayon Coner-Mediated Amplification This assay detects E6/E7 viral messenger RNA (mRNA) from 14 high-risk HPV types (16,18,31,33,35,39,45,51,52,56,58,59,66,68). ? The analytical performance characteristics of this assay have been determined by [employer]. The modifications have not been cleared or approved by the FDA. This assay has been validated pursuant to the CLIA regulations and is used for clinical purposes. ?? For additional information, please refer to http://education.[employer]/faq/NFE111m7 (This link if provided for information/ educational purposes only.) Interpretation/Re sult: Negative for intraepithelial lesion or malignancy. [facility] LMP: NONE GIVEN [facility] Prev. BX: NONE GIVEN [facility] Prev. PAP: NONE GIVEN [facility] SOURCE: None given [facility] Statement Of Adequacy: SEE COMMENT [facility] Comment: Satisfactory for evaluation. Endocervical/transformation zone component absent. 05/14/2021 4:29 PM EST Andreina Krishna MD LAB PATHOLOGY ORDERAB LES Final Result [facility] [address] * DIGITAL BILATERAL SCREEN 1 (01/11/2018 3:25 PM EDT) Anatomical Region Laterality Modality Breast Bilateral Mammography 01/11/2018 3:25 PM EDT Narrative 01/12/2018 7:26 AM EDT Refer to the Notes tab for result details [facility] Procedure: DIGITAL BILATERAL SCREEN 1 Procedure Note Provider, Zoya, - 09/13/2022 Refer to the Notes tab for result details [facility] Procedure: DIGITAL BILATERAL SCREEN 1 Historical Provider IMG BI PROCEDURES Final R esult from Last 3 Months or Most Recently Relevant to Health Maintenance Insurance [facility] STANDARD DENTAL-[facility] MEDICAID STAND ADULT Care Teams Counter Attendant Relationship Specialty Start Date End Date Andreina Mansfield MD [address] [place] [id number] PCP - General Family Medicine 03/03/18
--- OUTSIDE RECORDS SUMMARY | 2024-08-04 12:36 | XMS_ITS | Referral Summary ---
Author Organization [facility] Address [address] [place] [address] Care Team Providers Care Farm Supervisor Name Role Phone Andreina Mansfield MD Primary Care Provider Allergies No known active allergies Medications Custom Compounded Medication Take by mouth daily. 600mg DIOVENOR (DIOSEMINE) Active losartan (COZAAR) 50 mg tablet Take 50 mg by mouth daily. 50-12.5MG TAB Active emollient combination no.10 (BIAFINE EMULSION) emulsion by Topical (top) route daily. BOTH FEET Active FENUGREEK SEED EXTRACT ORAL Take 330 mg by mouth daily. 2 tabs daily Active vitamin D3 (VITAMIN D3) 1,000 unit capsule Take 1 capsule by mouth daily. Active polyethylene glycol (COLYTE) solutionIndicat ions:Screen for colon cancer Take according to instructions provided by physician. 4000 mL 0 Active Arthritis Pain Relief, acetam, 650 mg 8 hr tablet TAKE 2 TABLETS BY MOUTH EVERY 8 HOURS NEEDED. SWALLOW WHOLE WITH WATER DO NOT BREAK, CRUSH, DISSOLVE OR CHEW 0 Active ergocalciferol (VITAMIN D2) 1,250 mcg (50,000 unit) capsule Take 50,000 Units by mouth once a week. 0 Active ferrous sulfate 325 mg (65 mg iron) tablet Take 1 tablet by mouth daily. 0 Active losartan-hydroc hlorothiazide (HYZAAR) 50-12.5 mg per tablet Take 1 tablet by mouth daily. 0 Active Daily-Papito tablet Take 1 tablet by mouth daily. 0 Active traMADoL (ULTRAM) 50 mg tablet Take 50 mg by mouth every 6 hours as needed. 0 Active cholecalciferol (VITAMIN D3) 2,000 unit capsule Take 1 capsule by mouth daily. 1 Active magnesium gluconate (MAGONATE) 27 mg magnesium (500 mg) tablet Take 500 mg by mouth once a day. Active prednisoLONE acetate (PRED FORTE) 1% ophthalmic suspension 1 drop to the affected eye 3 times a day for 1 week, then decrease to 2 times a day for 1 week, then decrease to once daily for 1 week, then stop 5 mL 1 1 Active Additional Information Patient not taking.Reported on 04/16/2021 ketorolac (ACULAR) 0.5% ophthalmic solution 1 drop to the affected eye 3 times a day for 1 week, then decrease to 2 times a day for 1 week, then decrease to once daily for 1 week, then stop 5 mL 1 1 Active Additional Information Patient not taking.Reported on 04/16/2021 polymyxin B sulf-trimethopr im (POLYTRIM) ophthalmic solution SMARTSIG:In Eye(s) 1 Active Active Problems Problem Noted Date Diagnosed Date Hypertension 01/28/2018 Morbid obesity with BMI of 40.0-44.9, adult 02/2018 Varicose veins of both lower extremities with pa in 01/28/2018 Gout 01/28/2018 Immunizations Immunization Administration Dates Next Due Covid-19, Pfizer, mRNA, [place] valent, PF 30 mcg/0.3 mL dose (for ages 12 and older) 10/19/2020,09/28/2020 Social History Tobacco Use Types Packs/Day Years Used Date Smoking Tobacco: Never Smokeless Tobacco: Never Alcohol Use Standard Drinks/Week Comments No 0 (1 standard drink = 0.6 oz pur e alcohol) Comments Unknown Sex and Gender Information Value Date Recorded Sex Assigned at Female 01/31/2021 10:31 AM EDT Legal Sex Female 7:07 PM EDT Gender Identity Female 01/31/2021 10:31 AM EDT Sexual Orientation Not on file 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 Not on file Not on file Not on file Last Filed Vital Signs Vital Sign Reading Time Taken Comments Blood Pressure 126/78 03/04/2021 12:08 PM EDT Pulse 60 03/04/2021 12:08 PM EDT Temperature 36.6 ??C (97.8 ??F) 03/04/2021 1 2:08 PM EDT Respiratory Rate 0 03/04/2021 12:0 2 PM EDT Oxygen Saturation 97% 03/04/2021 12: 08 PM EDT Inhaled Oxygen Concentration - - Weight 120.5 kg (265 lb 10.5 oz) 2020 10:58 AM EDT Height 168 cm (5' 6.14 ) 03/04/2021 10: 58 AM EDT Body Mass Index 42.69 03/04/2021 10:58 AM EDT Plan of Treatment Not on file Medical Devices Implanted Type Area Mold Carrier Device Identifier Shelf Expiration Date Model / Serial / Lot Lens Intraocular Ashperic Natural Single Piece Acrylic With Blue Light Filter [id number] 21.0d - [id number] - [id number] Implanted:Qty: 1 on 02/05/2021 by Leobardo Galicia MD at [facility] Lens Left: Eye NILSA 10/13/2025 SN60WF 21.0 / [id number] / Lens Intraocular Ashperic Natural Single Piece Acrylic With Blue Light Filter [id number] 21.0d - [id number] - [id number] Implanted:Qty: 1 on 03/04/2021 by Leobardo Galicia MD at [facility] Lens Right: Eye NILSA 11/18/2025 SN60WF 21.0 / [id number] / Insurance MAIDA MCCRACKEN [id number] Visibiz HSNO/FREE [facility] Advance Directives * Full Code (Latest Code Status on File) Date Activated Date Inactivated Comments 03/04/2021 11:02 AM 03/04/2021 2:31 PM * Full Code Date Activated Date Inactivated Comments 02/05/2021 12:22 PM 02/05/2021 4:11 PM Care Teams Farm Supervisor Relationship Specialty Start Date End Date Andreina Mansfield MD [address] [place] [address] PCP - General 11/13/20
--- OUTSIDE RECORDS SUMMARY | 2024-08-04 12:36 | XMS_ITS | Encounter Summary ---
Author Organization [facility] Address [address] [facility] [address] [facility] 7[address] [place] [address] Care Team Providers Care Rn Neurology Name Role Phone Andreina Mansfield MD Primary Care Provide r Reason for Visit * Reason Comments Med Refill Encounter Details Date Type Department Care Team ([facility] st Contact Info) Description 11/09/2023 Refill [facility] MEDICINE [address] [place], [place] [phone] Andreina Mansfield MD [address] [place], [place] [phone] Vitamin B12 deficiency Social History Tobacco Use Types Packs/Day Years Used Date Smoking Tobacco: Never Passive Smoke Exposure: Never Smokeless Tobacco: Never Depression Answer Date Recorded Patient Health Questionnaire-9 Score 5 09/22/2023 Patient Health Questionnaire-9 Score 5 09/22/2023 Last PHQ-9: Questionnaire Data Not on file 0 09/22/2023 Housing Stability Answer Date Recorded What is [...] Answer Date Recorded Patient Health Questionnaire-2 Score 1 09/22/2023 Comments Unknown Sex and Gender Information Value Date Recorded Sex Assigned at Female 04/21/2022 10:29 AM EDT Legal Sex Female 10:29 AM EDT Gender Identity Female 04/21/2022 10:29 AM EDT Sexual Orientation Straight 04/21/2022 10 :29 AM EDT documented as of this encounter Miscellaneous Notes * Telephone Encounter - Andreina Krishna MD - 11/10/2023 12:02 PM EDT Patient b12 levels are high she boothe not need supplement anymore thank you documented in this encounter Plan of Treatment Upcoming Encounters Date Type Department Care Team (Late st Contact Info) Description 10/31/2024 1:00 PM EDT Office Visit [facility] OPTOMETRY [address] [place] [address] Constantino, Lindsey, OD [address] [place] [address] 11/01/2024 2:30 PM EDT Office Visit [facility] MEDICINE [address] [place] [address] Andreina Mansfield MD [address] [place] [address] documented as of this encounter Visit Diagnoses Diagnosis Vitamin B12 deficiency Other B-complex deficiencies documented in this encounter Additional Health Concerns Assessment Noted Time PHQ-9 Depression Total Score: 5 09/22/19 24 2:19 PM EDT documented as of this encounter Care Teams Rn Neurology Relationship Specialty Start Date End Date Andreina Mansfield MD [address] [place], [place] [phone] PCP - General Family Medicine 03/03/18 documented as of this encounter
--- OUTSIDE RECORDS SUMMARY | 2024-08-04 12:36 | XMS_ITS | Encounter Summary ---
Author Organization [employer] Address [address] [facility] [address] [place] [address] Care Team Providers Care Multimedia Authoring Specialist Name Role Phone Andreina Mansfield MD Primary Care Provide r Reason for Visit * Reason Onset Date Comments Call Back Request 11/12/2023 Encounter Details Date Type Department Care Team ([facility] st Contact Info) Description 11/12/2023 Telephone [facility] MEDICINE [address] [place], [place] [phone] Andreina Mansfield MD [address] [place], [place] [phone] Call Back Request Social History Tobacco Use Types Packs/Day Years [...] encounter Miscellaneous Notes * Telephone Encounter - Ashley Reid - 11/12/2023 11:13 AM EDT Tc from pt son requesting to speak with a nurse in regards to schedule tele appointment. States pt will be traveling same day in the morning and will be out of state for 3 months. Please contact son at [phone] documented in this encounter Plan of Treatment Upcoming Encounters Date Type Department Care Team (Late st Contact Info) Description 10/31/2024 1:00 PM EDT Office Visit [facility] OPTOMETRY [address] [place] [address] Constantino, Lindsey, OD [address] [place] [address] 11/01/2024 2:30 PM EDT Office Visit [facility] MEDICINE [address] [place] [address] Andreina Mansfield MD [address] [place] [address] documented as of this encounter Visit Diagnoses Not on filedocumented in this encounter Additional Health Concerns Assessment Noted Time PHQ-9 Depression Total Score: 5 09/22/19 24 2:19 PM EDT documented as of this encounter Care Teams Multimedia Authoring Specialist Relationship Specialty Start Date End Date Andreina Mansfield MD [address] [place] [address] PCP - General Family Medicine 03/03/18 documented as of this encounter
--- OUTSIDE RECORDS SUMMARY | 2024-08-04 12:36 | XMS_ITS | Continuity of Care Document ---
Author Organization [facility] Address [address] [place] [address] Phone Care Team Providers Care Ballast Inspector Name Role Phone Jaya MARY, RVT, RPSUSANA, Gabriel Unavailable U navailable Allergies, Adverse Reactions, Alerts Substance Reaction Status Criticality No Known Allergies Active No Inform ation Medications Medication Instructions Dosage Effective Dates (start - stop) Status Comments oxycodone 5 mg tablet take 1 tablet by oral route every 4 hours as needed as needed for Pain 5 MG - Active IRON (unknown strength) Not Available - Active LOSARTAN-HYDROCHLO ROTHIAZIDE (unknown strength) Not Available - Active DIOSMIN (unknown strength) Not Available - Active Procedures Procedure Date Duplex Scan-extrem Veins; Uni/ CT & [place] M Office/Outpt E&M Established 15 Mins- CT & MA Office/Outpt E&M Established 15 Mins Jun Duplex Scan-extrem Veins; Comp Office/Outpt E&M Established 15 Mins Jun Duplex Scan-extrem Veins; Uni/ Phleb Veins - Extrem 20+ Endovenous Laser, 1st Vein Endovenous Laser, 1st Vein Endovenous laser vein addon Phleb Veins - Extrem 20+ Duplex Scan-extrem Veins; Uni/ Endovenous Laser, 1st Vein Endovenous Laser, 1st Vein Endovenous laser vein addon Offic/outpt E&m Estab 5 Min Trial - Tele medicine Office/Outpt E&M Established 25 Mins October Duplex Scan-extrem Veins; Comp Office/Oupt E&M New Pt 30 Mins Advance Directives Directive Yes / No Effective Date File Name No Information Encounters Encounter Description Practice Location Reason(s) For Visit Diagnoses Date Provider Providers Copied on Encounter [facility], [address] [place] [address] Dr Mckeon [address] [address], [id number], [place] tel:[phone] [facility] - [place] No Information 4 Jaya MARY RVT, JAYNE Rios. [address] [place] [address], [place], [place], [id number] , [place]. [phone] [place] [facility], [address] [place] [address] Dr Mckeon [address] [address], [id number], [place] tel:[phone] [facility] [place] Pain in right leg 4 Jaya MARY RVT, JAYNE Rios. [address] [place] [address], [place], [place], [id number] , [place]. [phone] Referring Provider: Andreina Martel, [address] [place] [address], [address]. tel:[phone] Office/Outpt E&M Established 15 Mins- CT & [place] [facility], [address] [place] [address] Dr Mckeon [address] [address], [id number], [place] tel:[phone] [facility] Venous insufficiency (chronic) (peripheral)Pa in in right leg 4 Jaya MARY RVT, JAYNE Rios. [address] [place] [address], [place], [place], [id number] , [place]. [phone] Referring Provider: Andreina Martel, [address] [place], [address]. tel:[phone] Office/Outpt E&M Established 15 Mins [facility], [address] [place] [address] Dr Mckeon [address] [address], [id number], [place] tel:[phone] [facility] Chronic venous hypertension (idiopathic) with other complications of bilateral lower extremityEssen tial (primary) hypertension 4 Jaya MARY RVT, JAYNE Rios. [address] [facility] [address], [facility] [place], [id number] , [place]. tel:[phone] Referring Provider: Andreina Martel, [address] [place], [address]. tel:[phone] [facility], [address] [place] [address] Dr Mckeon [address] [address], [id number], [place] tel:[phone] [place] Encounter for follow-up examination after completed treatment for conditions other than malignant neVaricose veins of bilateral lower extremities with pain 4 Jaya MARY RVT, JAYNE Rios. [address] [address], [place], [place], [id number] , [place]. tel:[phone] Referring Provider: Andreina Martel, [address] [place], [address]. tel:[phone] Office/Outpt E&M Established 15 Mins [facility], [address] [place] [address] Dr Mckeon [address] [address], [id number], [place] tel:[phone] CVR - [place] Pain in right lower legPain in left lower legCramp and spasmEssential (primary) hypertension 4 Jaya MARY RVT, JAYNE Rios. [address] [facility] [address], [facility] [place], [id number] , [place]. tel:[phone] Referring Provider: Andreina Martel, [address] [place], [address]. tel:[phone] [facility] [place], [address] [place] [address] Dr [address] [address], [id number], [place] tel:[phone] [place] Encounter for follow-up examination after completed treatment for conditions other than malignant neVaricose veins of right lower extremity with pain Oct-3 0- 3 Camilo Newberry. [address] [facility], [place] [address], [place], [address], [place]. [phone] Referring Provider: Andreina Martel, [address] [place], [address]. tel:[phone] [facility] [place] [facility], [address] [place] [address] [address] [address], [id number], [place] tel:[phone] [place] Varicose veins of right lower extremity with other complications Oct-2 6- 3 Giovany Osborne . [address] [facility], [place] [address], [place], [place], [id number] , [place]. [phone] Referring Provider: Andreina Martel, [address] [place], [address]. tel:[phone] [facility], [address] [place] [address] [address] [address], [id number], [place] tel:[phone] [place] Varicose veins of right lower extremity with other complications Oct-2 - 3 Camilo Newberry. [address] [facility], [address], [place], [address], [place]. tel:[phone] Referring Provider: Andreina Martel, [address] [place], [address]. tel:[phone] [facility] [place], [address] [place] [address] [address] [address], [id number], [place] tel:[phone] [place] Varicose veins of right lower extremity with other complications Oct-2 3- 3 Camilo Newberry. [address] [facility], [address], [place], [address], [place]. tel:[phone] Referring Provider: Andreina Martel, [address] [place] [address], [address]. tel:[phone] [place] [facility], [address] [place] [address] [address] [address], [id number], [place] tel:[phone] [place] Varicose veins of left lower extremities w oth complications Sep- 3 Giovany Osborne . [address] [facility], [address], [place], [place], [id number] , [place]. tel:[phone] Referring Provider: Andreina Martel, [address] [place] [address], [address]. tel:[phone] [place] [facility], [address] [place] [address] [address], [place], [id number], [place] tel:[phone] CVR - [place] Encntr for f/u exam aft trtmt for cond oth than malig neoplmVaricose veins of left lower extremities with pain Sep- 3 Camilo MARY FACS T JAYNE Newberry. Count includes the [facility] [facility], [address] [facility], [place], [address], [place]. tel:[phone] Referring Provider: Andreina Martel, [address] [place] [address], [address]. tel:[phone] [place] [facility], [address] [place] [address] [address] [address], [id number], [place] tel:[phone] [place] Varicose veins of left lower extremities w oth complications Sep- 3 Camilo MARY FACS T JAYNE Newberry. [address] [facility], [address], [place], [address], [place]. tel:[phone] Referring Provider: Andreina Martel, [address] [place], [address]. tel:[phone] [facility] [place], [address] [place] [address] Dr Mckeon [address] [address], [id number], [place] tel:[phone] [place] Varicose veins of left lower extremities w oth complications 3 Camilo MARY FACS T JAYNE Newberry. [address] [facility], [place] [address], [place], [address], [place]. tel:[phone] Referring Provider: Andreina Martel, [address] [place] [address], [address]. tel:[phone] Offic/outpt E&m Estab 5 Min Trial - Telemedicine [facility] [place], [address] [place] [address] Dr Mckeon [address], [id number], [place] tel:[phone] [place] - [place] Chronic venous htn w oth comp of bilateral low extrm 3 Camilo MARY FACS Robert Newberry. [address] [facility], [place] [address], [place], [address], [place]. tel:[phone] Referring Provider: Andreina Martel, [address] [place] [address], [address]. tel:[phone] Office/Outpt E&M Established 25 Mins [facility] [place], [address] [place] [address] Dr Mckeon [address], [id number], [place] tel:[phone] [place] Venous insufficiency (chronic) (peripheral) 3 Camilo MARY FACS T JAYNE Newberry. [address] [facility], [facility] [address], [place], [address], [place]. tel:[phone] Referring Provider: Andreina Martel, [address] [place], [address]. tel:[phone] [place] [place], [address] [place] [address] Dr Mckeon [address], [id number], [place] tel:[phone] [place] Venous insufficiency (chronic) (peripheral)Pa in in right legPain in left leg 3 Camilo MARY FACS T JAYNE Newberry. [address] [facility], [place] [address], [place], [address], [place]. tel:[phone] Referring Provider: Andreina Martel, [address] [place], [address]. tel:[phone] Office/Oupt E&M New Pt 30 Mins [facility], [address] [facility] [address], [place], [id number], [place] tel:[phone] [place] Venous insufficiency (chronic) (peripheral)Es sential (primary) hypertensionPr uritus, unspecifiedCra mp and spasm 3 Camilo MARY FACS T JAYNE Newberry. [address] [facility], [place] [address], [place], [address], [place]. tel:[phone] Referring Provider: Andreina Martel, [address] [place] [address], [address]. tel:[phone] Family History Family Member Type Diagnosis Age At Onset No Information Payers Payer name Insurance type Covered republican ID Sharifgisela mackenziegadiel(s) Medical Assistance [facility] [id number] Social History Type Description Quantity Date Captured Comments Alcohol Use Details Unknown Caffeine Use Details Unknown Tobacco Use Status No Information Smoking Status No Information Sex Female Chief Complaint And Reason For Visit No Information Reason For Referral Reason For Referral No Information Plan Of Treatment Date Type Action Status Goal Diet education completed Goal Diet education completed Goal Tobacco cessation counseling completed Goal Diet education completed Referral Ordered: Weight management: Referral to physician timeframe: 3 Months (related to Body mass index (BMI) 45.0-49.9, adult) ordered Referral Ordered: Weight management: Referral to physician timeframe: 3 Months (related to Body mass index (BMI) 45.0-49.9, adult) ordered Referral Ordered: Weight management: Referral to physician timeframe: 3 Months (related to Body mass index (BMI) 60.0-69.9, adult) ordered History Of Present Illness Encounter Date Complaint History Of Prese nt Illness No Information Functional Status Date Functional Assessmen t No Information Instructions Date Instruction Additional Infor donaldfawn Diet education Related to Body mass index (BMI) 45.0-49.9, adult Giving Encouragement to exercise Related to Body mass index (BMI) 45.0-49.9, adult Lifestyle education Related to B todd mass index (BMI) 45.0-49.9, adult Compression stocking usage as conservative measure Related to Chronic venous hypertension (idiopathic) with other complications of bilateral lower extremity Patient education booklet given Related to Chronic venous hypertension (idiopathic) with other complications of bilateral lower extremity Lifestyle education Related to B todd mass index (BMI) 45.0-49.9, adult Compression stocking usage as conservative measure Related to Pain in right lower leg Patient education booklet given Related to Pain in right lower leg Diet education Related to Body mass index (BMI) 45.0-49.9, adult Giving Encouragement to exercise Related to Body mass index (BMI) 45.0-49.9, adult Diet education Related to Body mass index (BMI) 60.0-69.9, adult Giving Encouragement to exercise Related to Body mass index (BMI) 60.0-69.9, adult Lifestyle education Related to B todd mass index (BMI) 60.0-69.9, adult Patient education booklet given Related to Venous insufficiency (chronic) (peripheral) Compression stocking usage as conservative measure Related to Venous insufficiency (chronic) (peripheral) Assessments Type Assessment Date No Information Patient Care Teams Name Effective Dates (start - stop) Status Members No Information
--- OUTSIDE RECORDS SUMMARY | 2024-08-04 12:36 | XMS_ITS | Encounter Summary ---
Author Organization [employer] Address [address] [facility] 7t [place] [address] Care Team Providers Care Wood Engraver Name Role Phone Andreina Mansfield MD Primary Care Provide r Reason for Visit * Reason Comments Pre-visit Planning (Unable to reach for PVP screening, LVM) Encounter Details Date Type Department Care Team ([facility] st Contact Info) Description 07/22/2024 Patient Outreach [facility] MEDICINE [address] [place], [place] [phone] Andreina Mansfield MD [address] [place], [place] [phone] Pre-visit Planning ((Unable to reach for PVP screening, LVM)) Social History Tobacco Use Types Packs/Day Years Used Date Smoking Tobacco: Never Passive Smoke Exposure: Never Smokeless Tobacco: Never Alcohol Use Standard Drinks/Week Comments Never 0 (1 standard drink = 0.6 oz pur e alcohol) Depression Answer Date Recorded Patient Health Questionnaire-9 Score 5 09/22/2023 Patient Health Questionnaire-9 Score 5 09/22/2023 Last PHQ-9: Questionnaire Data Not on file 0 09/22/2023 Housing Stability Answer Date Recorded What is your housing situation today? I have neelyogi ortez 04/06/[address] you [...] AM EDT documented as of this encounter Progress Notes * Christel Johnson - 07/22/2024 9:01 AM EST CC Christel. Placed outbound call to patient to complete pre-visit planning. No answer at this time. Patient name and were not confirmed. CC left voicemail requesting return call. Direct contact information provided. documented in this encounter Plan of Treatment Upcoming Encounters Date Type Department Care Team (Late st Contact Info) Description 10/31/2024 1:00 PM EDT Office Visit [facility] OPTOMETRY [address] [place] [address] Lindsey Meeks, OD [address] [place] [address] 11/01/2024 2:30 PM EDT Office Visit [facility] MEDICINE [address] [place] [address] Andreina Mansfield MD [address] [place] [address] documented as of this encounter Visit Diagnoses Not on filedocumented in this encounter Additional Health Concerns Assessment Noted Time PHQ-9 Depression Total Score: 5 09/22/19 24 2:19 PM EDT documented as of this encounter Care Teams Wood Engraver Relationship Specialty Start Date End Date Andreina Mansfeild MD [address] [place] [address] PCP - General Family Medicine 03/03/18 documented as of this encounter
--- OUTSIDE RECORDS SUMMARY | 2024-08-04 12:36 | XMS_ITS | Encounter Summary ---
Author Organization [facility], Address [address] [place] [address] Phone Care Team Providers Care Endless Track Vehicle Mechanic Name Role Phone Andreina Mansfield MD Primary Care Provide r Encounter Details Date Type Department Care Team (Late st Contact Info) Description 02/11/2023 Documentation Only [facility], [address] [place] [address] Andreina Mansfield MD [address] [address] Social History Tobacco Use Types Packs/Day Years Used Date Smoking Tobacco: Never Assessed Comments Unknown Sex and Gender Information Value Date Recorded Sex Assigned at Not on file Legal Sex Female 1:22 PM EDT Gender Identity Not on file Sexual Orientation Not on file documented as of this encounter Plan of Treatment Not on file documented as of this encounter Visit Diagnoses Not on filedocumented in this encounter Care Teams Endless Track Vehicle Mechanic Relationship Specialty Start Date End Date Andreina Mansfield MD [address] [address] PCP - General Internal Medicine 02/09/23 documented as of this encounter
--- OUTSIDE RECORDS SUMMARY | 2024-08-04 12:36 | XMS_ITS | Encounter Summary ---
Author Organization [employer] Address [address] [facility] 7t [place] [address] Care Team Providers Care Aviation Operations Specialist Name Role Phone Andreina Mansfield MD Primary Care Provide r Encounter Details Date Type Department Care Team (Late st Contact Info) Description 05/19/2023 Abstract [facility] MEDICINE [address] [place], [place] [phone] Griselda Tan Social History Tobacco Use Types Packs/Day Years Used Date Smoking Tobacco: Never Passive Smoke Exposure: Never Smokeless Tobacco: Never Depression Answer Date Recorded Patient Health Questionnaire-9 Score 0 10/30/2022 Housing Stability Answer Date Recorded What is [...] Date Recorded Patient Health Questionnaire-2 Score 0 10/30/2022 Comments Unknown Sex and Gender Information Value Date Recorded Sex Assigned at Female 04/21/2022 10:29 AM EDT Legal Sex Female 10:29 AM EDT Gender Identity Female 04/21/2022 10:29 AM EDT Sexual Orientation Straight 04/21/2022 10 :29 AM EDT documented as of this encounter Plan of Treatment Upcoming Encounters Date Type Department Care Team (Late st Contact Info) Description 10/31/2024 1:00 PM EDT Office Visit [facility] OPTOMETRY [address] [place] [address] Lindsey Meeks, OD [address] [place] [address] 11/01/2024 2:30 PM EDT Office Visit [facility] MEDICINE [address] [place] [address] Andreina Mansfield MD [address] [place] [address] documented as of this encounter Visit Diagnoses Not on filedocumented in this encounter Additional Health Concerns Assessment Noted Time PHQ-9 Depression Total Score: 0 10/31/19 23 2:52 PM EDT documented as of this encounter Care Teams Aviation Operations Specialist Relationship Specialty Start Date End Date Andreina Mansfield MD [address] [place] [address] PCP - General Family Medicine 03/03/18 documented as of this encounter
--- OUTSIDE RECORDS SUMMARY | 2024-08-04 12:36 | XMS_ITS | Clinical Summary ---
Author Organization [facility] Address [address] [place] [address] Care Team Providers Care Pathological Technician Name Role Phone Andreina Mansfield MD Primary [...] Administration Dates Next Due Covid-19, Pfizer, mRNA, Walker valent, PF 30 mcg/0.3 mL dose (for ages 12 and older) 10/19/2020,09/28/2020 Family History Medical History Relation Name Comments No Known Problems Father Liver cancer Mother Relation Name Status Comments Father (Age 70) Mother (Age 75) Social History Tobacco Use Types Packs/Day Years [...] 03/04/2021 10:58 AM EDT Plan of Treatment Health Maintenance Due Date Last Done Comments Basic Metabolic Panel 1957 Cologuard 1957 Colon Cancer Screening 1957 Colonoscopy 1957 FOBT / Fit Test 1957 Hepatitis C Screening 1957 Sigmoidoscopy 1957 Mammogram 1997 Osteoporosis Screening 2007 Zoster Vaccines (2 of 3) 08/24/2018 06/29/2018 Pneumococcal Vaccine: 50+ Years (1 of 1 - PCV) 2022 COVID-19 Vaccine (4 - 2023-2 5 season) 2024 05/15/2021, 10/19/2020, 09/28/2020 Influenza Vaccine (#1) 2024 , 06/29/2018 Alcohol/Substance Use Screening 2024 Depression Screening and Follow-Up 2024 Health Care Proxy Review 2024 Social Drivers of Health Annual Screening 2024 DTaP,Tdap,and Td Vaccines (2 - Td or Tdap) 12/25/2030 12/25/2020 RSV Vaccine (60+ years old a nd patients) (1 - 1-dose 75+ series) 2032 Hepatitis B Vaccines Aged Out No long er eligible based on patient's age to complete this topic Medical Devices Implanted Type Area Ancillary Specialist Device Identifier Shelf Expiration Date Model / Serial / Lot Lens Intraocular [employer] Natural Single Piece Acrylic With Blue Light Filter [id number] 21.0d - [id number] - [id number] Implanted:Qty: 1 on 02/05/2021 by Leobardo Galicia MD at [facility] Lens Left: Eye NILSA 10/13/2025 SN60WF 21.0 / [id number] / Lens Intraocular [employer] Natural Single Piece Acrylic With Blue Light Filter [id number] 21.0d - [id number] - [id number] Implanted:Qty: 1 on 03/04/2021 by Leobardo Galicia MD at [facility] Lens Right: Eye NILSA 11/18/2025 SN60WF 21.0 / [id number] / Insurance [facility] HS/FREE CARE [facility] Advance Directives * Full Code (Latest Code Status on File) Date Activated Date Inactivated Comments 03/04/2021 11:02 AM 03/04/2021 2:31 PM * Full Code Date Activated Date Inactivated Comments 02/05/2021 12:22 PM 02/05/2021 4:11 PM Care Teams Pathological Technician Relationship Specialty Start Date End Date Andreina Mansfield MD [address] [place] [address] PCP - General 11/13/20
--- OUTSIDE RECORDS SUMMARY | 2024-08-04 12:36 | XMS_ITS | Clinical Summary ---
Author Organization [facility] Address [address] [place] [address] Care Team Providers Care Black Top Machine Operator Name Role Phone Andreina Mansfield MD Primary Care Provide r Social History Tobacco Use Types Packs/Day Years Used Date Smoking Tobacco: Never Assessed Comments Unknown Sex and Gender Information Value Date Recorded Sex Assigned at Not on file Legal Sex Female 1:22 PM EDT Gender Identity Not on file Sexual Orientation Not on file Plan of Treatment Health Maintenance Due Date Last Done Comments Breast Cancer Screening 1957 Colorectal Cancer Screening: Annual FOBT 2006 Colorectal Cancer Screening: Colonoscopy 2006 Colorectal Cancer Screening: Sigmoidoscopy 2006 Pneumococcal Vaccine: 65+ Ye ars (1 of 1 - PCV) 2022 Influenza Vaccine (#1) 2024 Hepatitis B Vaccine Aged Out No longe r eligible based on patient's age to complete this topic Insurance MEDICAID [place] Care Teams Black Top Machine Operator Relationship Specialty Start Date End Date Andreina Mansfield MD [address] [place] [address] [place] [id number] PCP - General Internal Medicine 02/09/23
--- OUTSIDE RECORDS SUMMARY | 2024-08-04 12:36 | XMS_ITS | Encounter Summary ---
Author Organization [employer] Address [address] [facility] 7t [place] [address] Care Team Providers Care Software Licensing Analyst Name Role Phone Andreina Mansfield MD Primary Care Provide r Reason for Visit * Reason Onset Date Comments Requesting Call Back 07/22/2023 Encounter Details Date Type Department Care Team ([facility] st Contact Info) Description 07/22/[address] [facility] MEDICINE [address] [place], [place] [phone] Andreina Mansfield MD 230 [place], [place] [phone] Requesting Call Back Social History Tobacco Use Types Packs/Day Years [...] encounter Miscellaneous Notes * Telephone Encounter - Gwyn Efe - 07/22/2023 9:47 AM EST Tc from Wendi from [facility] requesting call back regarding referral that was faxed over. Wendi stated their office specializes in pain management and they received a referral for orthopedic surgery.Wendi is requesting clarification. Please contact Wendi at [phone]. documented in this encounter Plan of Treatment Upcoming Encounters Date Type Department Care Team (Late st Contact Info) Description 10/31/2024 1:00 PM EDT Office Visit [facility] OPTOMETRY [address] [place] [address] Lindsey Meeks, OD 230 [place] [address] 11/01/2024 2:30 PM EDT Office Visit [facility] MEDICINE [address] [place] [address] Andreina Mansfield MD [address] [place] [address] documented as of this encounter Visit Diagnoses Not on filedocumented in this encounter Additional Health Concerns Assessment Noted Time PHQ-9 Depression Total Score: 0 10/31/19 23 2:52 PM EDT documented as of this encounter Care Teams Software Licensing Analyst Relationship Specialty Start Date End Date Andreina Mansfield MD [address] [place] [address] PCP - General Family Medicine 03/03/18 documented as of this encounter
--- OUTSIDE RECORDS SUMMARY | 2024-08-04 12:36 | XMS_ITS | Encounter Summary ---
Author Organization [employer] Address [address] [facility] 7t [place] [address] Care Team Providers Care Altitude Chamber Technician Name Role Phone Andreina Mansfield MD Primary Care Provide r Reason for Referral * Imaging (Routine) - Authorized Specialty Diagnoses / Procedures Referred By Contac t Referred To Contact Radiology Diagnoses Encounter for screening mammogram for malignant neoplasm of breast Procedures BI Mammogram Screening Tomosynthesis Bilateral Andreina Mansfield MD [address] [place] [address] Phone: tel: fax: [address] Phone: tel: fax: Referral ID Status Reason Start Date Expiration Date V isits Requested Visits Authorized [id number] Authorized 08/04/2024 08/04/2025 1 1 Encounter Details Date Type Department Care Team (Late st Contact Info) Description 08/04/2024 11:00 AM EST Office Visit [facility] MEDICINE [address] [place] [address] Andreina Mansfield MD [address] [place] [phone] Primary hypertension (Primary Dx); Dietary counseling; Exercise counseling; Encounter for screening mammogram for malignant neoplasm of breast; Screening for colon cancer; Class 3 severe obesity due to excess calories with serious comorbidity and body mass index (BMI) of 40.0 to 44.9 in adult (CMS/HCC); Bruise Social History Tobacco Use Types Packs/Day Years [...] AM EDT documented as of this encounter Last Filed Vital Signs Vital Sign Reading [...] Mass Index 40.75 08/04/2024 11:16 AM EST documented in this encounter Plan of Treatment Upcoming Encounters Date Type Department Care Team (Late st Contact Info) Description 10/31/2024 1:00 PM EDT Office Visit [facility] OPTOMETRY [address] [place] [address] Lindsey Meeks, OD [address] [place] [address] 11/01/2024 2:30 PM EDT Office Visit [facility] MEDICINE [address] [place] [address] Andreina Mansfield MD [address] [place] [address] Scheduled Orders Name Type Priority Associated Diagnoses Orde r Schedule Comprehensive Metabolic Panel Lab Routine Primary hypertension Expected: 08/04/2024 (Approximate), Expires: 08/04/2025 CBC auto differential Lab Routine Primary hypertension Expected: 08/04/2024 (Approximate), Expires: 08/04/2025 TSH W/Reflex to FT4 Lab Routine Primary hypertension Expected: 08/04/2024 (Approximate), Expires: 08/04/2025 Hemoglobin A1c Lab Routine Primary hypertension Expected: 08/04/2024 (Approximate), Expires: 08/04/2025 BI Mammogram Screening Tomosynthesis Bilateral Imaging Routine Encounter for screening mammogram for malignant neoplasm of breast Expected: 08/04/2024, Expires: 10/02/2025 Cologuard?? colon cancer screening Lab Routine Screening for colon cancer Ordered: 08/04/2024 Prothrombin Time-INR Lab Routine Bruise Expected: 08/04/2024, Expires: 08/04/2025 Partial Thromboplastin Time, Activated (APTT) Lab Routine Bruise Expected: 08/04/2024, Expires: 08/04/2025 documented as of this encounter Visit Diagnoses Diagnosis Primary hypertension- Primary Unspecified essential hypertension Dietary counseling Dietary surveillance and counseling Exercise counseling Encounter for screening mammogram for malignant neoplasm of breast Screening for colon cancer Special screening for malignant neoplasms, colon Class 3 severe obesity due to excess calories with serious comorbidity and body mass index (BMI) of 40.0 to 44.9 in adult (CMS/HCC) Bruise Contusion of unspecified site documented in this encounter Additional Health Concerns Assessment Noted Time PHQ-9 Depression Total Score: 0 08/04/19 25 11:18 AM EST documented as of this encounter Care Teams Altitude Chamber Technician Relationship Specialty Start Date End Date Andreina Mansfield MD [address] [place] [address] PCP - General Family Medicine 03/03/18 documented as of this encounter
--- OUTSIDE RECORDS SUMMARY | 2024-08-04 12:36 | XMS_ITS | Clinical Summary ---
Author Organization [facility] Address [address] [facility] [place] [address] Phone Care Team Providers Care Paper Bag Maker Name Role Phone Andreina Mansfield MD Primary Care Provide r Allergies No known active allergies Medications hydroCHLOROthia zide 12.5 mg tablet Take 1 tablet (12.5 mg total) by mouth 1 (one) time each day. Active amLODIPine (NORVASC) 10 mg tablet Take by mouth 1 (one) time each day. Active gabapentin (NEURONTIN) 300 mg capsule Take 1 capsule (300 mg total) by mouth 3 (three) times a day. Active pravastatin (PRAVACHOL) 40 mg tablet Take 1 tablet (40 mg total) by mouth at bedtime. Active diclofenac sodium 1 % kit Apply 4 g topically 2 times daily. - Apply externally Active Active Problems Problem Noted Date Diagnosed Date Atypical chest pain 05/26/2024 Varicose veins of both lower extremities with pa in 05/26/2024 Primary hypertension 05/26/2024 Encounters Date Type Department Care Team Description 06/17/2024 12:30 PM EST Ancillary Procedure [facility] Cardiology [facility] [address] [place] [address] Varicose veins of both lower extremities with pain 05/26/2024 2:00 PM EST Office Visit [facility] Cardiology [facility] Medical [place] [address] [place] [address] Trisha Son MD Atypical chest pain (Primary Dx); Varicose veins of both lower extremities with pain; Primary hypertension 05/24/2024 Telephone [facility] [address] [facility] [address] [place] [address] Andreina Mansfield MD 05/14/2024 Telephone [facility] [address] [facility] [address] [place] [address] Andreina Mansfield MD Referral (Received routine paper referral - Nov. ab) from Last 3 Months Social History Tobacco Use Types Packs/Day Years Used Date Smoking Tobacco: Never Smokeless Tobacco: Never Tobacco Cessation:Counseling Given: Not Answered Alcohol Use Standard Drinks/Week Comments Never 0 (1 standard drink = 0.6 oz pur e alcohol) Comments Unknown Sex and Gender Information Value Date Recorded Sex Assigned at Not on file Legal Sex Female 11:01 AM EDT Gender Identity Not on file Sexual Orientation Not on file Obstetrics History Last Filed Vital Signs Vital Sign Reading Time Taken Comments Blood Pressure 139/78 05/26/2024 2:10 PM EST Pulse 75 05/26/2024 2:10 PM EST Temperature - - Respiratory Rate - - Oxygen Saturation 98% 05/26/2024 2:10 PM EST Inhaled Oxygen Concentration - - Weight 118 kg (260 lb) 05/26/2024 2:10 PM EST Height 167.6 cm (5' 6 ) 05/26/2024 2:10 PM EST Body Mass Index 41.97 05/26/2024 2:10 PM EST Plan of Treatment Upcoming Encounters Date Type Department Care Team (Late st Contact Info) Description 08/09/2024 3:30 PM EST Ancillary Procedure [facility] Cardiology [facility] [address] [place] [phone] 09/16/2024 2:40 PM EDT Office Visit [facility] [address] [facility] [address] [place] [address] Barbara Marques NP [address] [place] [address] [place], [place] [address] Health Maintenance Due Date Last Done Comments Pneumococcal Vaccine: 50+ Years (1 of 1 - PCV) 2007 RSV Immunization Patients 60 + Years Old (1 - Risk 60-74 years 1-dose series) 2017 Zoster Vaccines (2 of 3) 08/24/2018 06/29/2018 Breast Cancer Screening 01/12/2020 01/11/2018 Colorectal Cancer Screening: Stool Based Tests (FOBT/FIT) 01/15/2024 12/10/2022 Falls Risk Assessment 01/15/2024 Hepatitis C Screening 01/15/2024 Osteoporosis Screening (Bone Density Screening) 01/15/2024 Social Influencers of Health Screening 01/15/2024 COVID-19 Vaccine (2023-2 5 season) 2024 05/15/2021, 10/19/2020, 09/28/2020 Influenza Vaccine (#1) 2024 , 06/29/2018 Depression Screening 09/21/2024 09/22/2023 Hypertension/CHF/CAD Annual BMP Blood Test 05/03/2025 05/03/2024 Cholesterol Screening (Lipid Panel) 05/03/2029 05/03/2024 DTaP,Tdap,and Td Vaccines (2 - Td or Tdap) 12/25/2030 12/25/2020 HIB Vaccines Aged Out No longer eligi [...] on patient's age to complete this topic MMR Vaccines Aged Out No longer eligi ble based on patient's age to complete this topic Meningococcal ACWY Vaccine Aged Out N o longer eligible based on patient's age to complete this topic Meningococcal B Vacine Aged Out No lo nger eligible based on patient's age to complete this topic RSV Immunization Patients Under 20 months Aged Out No longer eligible b ased on patient's age to complete this topic Varicella Vaccines Aged Out No longer eligible based on patient's age to complete this topic Procedures Procedure Name Priority Date/Time Associated Diagnosis Comments VAS US DUPLEX LOWER EXT VENOUS INSUFFICIENCY BILATERAL Routine 06/17/2024 1:20 PM EST Varicose veins of both lower extremities with pain ECG 12-LEAD Routine 05/26/2024 2:22 PM EST Primary hypertension Atypical chest pain from Last 3 Months Results * Vascular US duplex lower extremity venous insufficiency bilateral (06/17/2024 1:20 PM EST) Left [facility] sahil 0.22 cm CV VAS LAB Left [facility] sahil 0.20 cm CV VAS LAB Left [facility] sahil 0.21 cm CV VAS LAB Right [facility] sahil 0.25 cm CV VAS LAB Right [facility] sahil 0.21 cm CV VAS LAB Right SFJ Diameter 1.09 cm CV VAS LAB Right GSD[facility] reflux 1,416 ms CV VAS LAB Anatomical Region Laterality Modality Vascular, Abdomen Ultrasound Narrative 06/18/2024 4:04 PM EST Right: 1. ??The right lower extremity veins are compressible and there is no evidence of DVT in the right lower extremity venous system. 2. ??History of right GSV ablation in the past. ??The GSV is visualized below the knee only. ??The distal calf GSV has clinically significant reflux of 1.4 seconds. 3. The SSV is not visualized. Left: 1. ??The left lower extremity veins are compressible and there is no evidence of DVT in the left lower extremity venous system. 2. ??History of left GSV ablation in the past. ??No reflux noted. 3. The SSV has no clinically significant reflux. Right Lower Venous No evidence of deep vein thrombosis in the common femoral, deep femoral, proximal femoral, mid femoral, distal femoral, popliteal, greater saphenous, small saphenous, posterior tibial and peroneal veins of the right leg. The vessels showed compressibility. Interrogation showed phasic and spontaneous Doppler signals. Farm Field Manager Details A jones scale, color and doppler analysis ultrasound was performed. During the study longitudinal and transverse views were obtained. Pulsed wave doppler was performed. Overall the study quality was adequate. us Mashrafi Ahmed MD CV VASCULAR PROCEDURES Final R esult * ECG 12 lead (05/26/2024 2:22 PM EST) Ventricular Rate ECG 75 BPM GEMUSE Atrial Rate 75 BPM GEMUSE P-R Interval 122 ms GEMUSE QRS Duration 96 ms GEMUSE Q-T Interval 396 ms GEMUSE QTc 442 ms GEMUSE P Wave [place] 15 degrees GEMUSE R [place] 73 degrees GEMUSE T [place] 33 degrees GEMUSE ECG Interpretation Normal sinus rhythm Normal ECG No previous ECGs available Confirmed by TRISHA SON ([id number]) on 05/26/2024 4:42:50 PM GEMUSE 05/26/2024 2:22 PM EST 05/26/2024 4:42 PM EST Trisha Son MD ECG ORDERABLES Final Result GEMUSE from Last 3 Months Insurance MEDICAID - [place] Care Teams Paper Bag Maker Relationship Specialty Start Date End Date Andreina Mansfield MD [address] [place] [address] PCP - General 07/16/23
--- OUTSIDE RECORDS SUMMARY | 2024-08-04 12:36 | XMS_ITS | Encounter Summary ---
Author Organization [employer] Address [address] [facility] 7t [place] [address] Care Team Providers Care Operations Intern Name Role Phone Andreina Mansfield MD Primary Care Provide r Encounter Details Date Type Department Care Team (Latest Contact Info) Description 11/01/[address] [facility] CONVERSIONS Dental, Provider, DDS Social History Tobacco Use Types Packs/Day Years [...] Description 10/31/2024 1:00 PM EDT Office Visit [facility] OPTOMETRY [address] [place] [address] Constantino, Lindsey, OD [address] [place] [address] 11/01/2024 2:30 PM EDT Office Visit [facility] MEDICINE [address] [place] [address] Andreina Mansfield MD [address] [place] [address] documented as of this encounter Visit Diagnoses Not on filedocumented in this encounter Care Teams Operations Intern Relationship Specialty Start Date End Date Andreina Mansfield MD [address] [place] [address] PCP - General Family Medicine 03/03/18 documented as of this encounter
[2024-08-04 12:56] LABS: MANUAL DIFF FLAG NO
[2024-08-04 12:59] LABS: Basophils Percent Auto 0.3 % (0-2); Eosinophils Percent Auto 0.3 % (0-4); Hematocrit 38.6 % (37.0-47.0); Hemoglobin 12.2 g/dl (12.0-16.0); Imm Gran Abs Auto 0.02 X10*3/uL (0.00-0.03); Imm Gran Pct Auto 0.3 % (0.0-0.4); Lymphocytes Absolute Auto 1.5 X10*3/uL (1.2-4.9); Mean Corpuscular HGB Conc 31.6 g/dl (31.0-35.0); Mean Corpuscular Hemoglobin 25.8 pg (27.0-33.0); Mean Corpuscular Volume 81.6 fL (80.0-98.0); Mean Platelet Volume 10.5 fL (9.4-12.3); Monocytes Absolute Auto 0.6 X10*3/uL (0.1-1.2); Monocytes Percent Auto 8.7 % (2-11); Neutrophils Percent Auto 69.4 % (45-73); Platelet Count 292 X10*3/uL (160-400); Red Blood Count 4.73 X10*6/uL (4.20-5.50); Red Cell Distribution Width 13.6 % (11.0-16.0); White Blood Count 7.1 X10*3/uL (4.8-10.8)
[2024-08-04 13:04] LABS: Estimated Average Glucose 117 mg/dL; Hemoglobin A1C 128.1586 umol/L; Hemoglobin A1c % 5.7 % (<6.0); Total Hemoglobin (HGBA1C) 3293.3306 umol/L
[2024-08-04 13:07] LABS: Prothrombin Time 11.5 SEC (10.9-12.4)
[2024-08-04 13:10] LABS: Partial Thromboplastin Time 29.3 SEC (26.0-36.8)
[2024-08-04 13:32] LABS: Alanine Aminotransferase 10 U/L (0-31); Albumin Level 3.9 g/dL (3.5-5.0); Alkaline Phosphatase 98 U/L (39-117); Anion Gap 12 (12-20); Aspartate Amino Transferase 18 U/L (5-31); Bilirubin Total 0.3 mg/dL (0.0-1.0); Blood Urea Nitrogen 29 mg/dL (9-16); Calcium 9.2 mg/dL (8.4-10.2); Carbon Dioxide 30 mmol/L (22-29); Chloride 104 mmol/L (96-108); Estimated Glomerular Filt Rate 45; Glucose Random 84 mg/dL (60-115); Potassium 4.7 mmol/L (3.3-5.1); Sodium 141 mmol/L (135-145); Total Protein 7.4 g/dL (6.5-8.0)
[2024-08-04 13:46] LABS: TSH reflex Free T4 0.87 uIU/mL (0.32-4.0)
== END 2024-08-04 12:25 | disposition home or self-care (01) ==
LOC: HO.HHCL 12:24
PROVIDERS: Visit Provider Internal Medicine
DX: T14.8XXA Other injury of unspecified body region, initial encounter (principal); I10 Essential (primary) hypertension
CPT/HCPCS: 36415; 80053; 83036; 84443; 85025; 85610; 85730

== ENCOUNTER 2025-05-01 15:05 | Outpatient (REF) | payer MEDICAID, SELFPAY ==
--- OUTSIDE RECORDS SUMMARY | 2024-12-29 09:53 | XMS_ITS | Continuity of Care Document ---
Author Organization [facility] Address 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 Name Role Phone Jaya MARY, RVT, RPSUSANA, [...] Not Available - Active Procedures Procedure Date Surgical Stockings Duomed Panty 20-30 & 30-40 Surgical Stockings Duomed Thigh High 20- 30 & 30-40 Office/Outpt E&M Established 25 Mins- CT & [place] Duplex Scan-extrem Veins; Comp- CT & [place] Duplex Scan-extrem Veins; Uni/ CT & [place] M Office/Outpt E&M Established 15 Mins- CT & [place] Office/Outpt E&M Established 15 Mins Jun Duplex Scan-extrem Veins; Comp Office/Outpt E&M Established 15 Mins Jun Duplex Scan-extrem Veins; Uni/ 23 Phleb Veins - Extrem 20+ Endovenous Laser, [...] Diagnoses Date Provider Providers Copied on Encounter [facility], [address] [place] [address] Dr Mckeon 1000[facility] [address], [id number], tel:[phone] [place] Venous insufficiency (chronic) (peripheral) 5 Jaya MARY RVT, JAYNE Rios. [address] [place] [address], [place], [place], [id number] , [place]. tel:[phone] [facility], [address] [place] [address] Dr Mckeon 1000[place] 1000[place], [id number], [place] tel:[phone] [place] Venous insufficiency (chronic) (peripheral) 5 Jaya MARY RVT, JAYNE Rios. [address] [place] [address], [place], [place], [id number] , [place]. tel:[phone] Office/Outpt E&M Established 25 Mins- CT & [place] [facility], [address] [place] [address] Dr Mckeon [address] 1000[place], [id number], [place] tel:[phone] [place] Essential (primary) hypertensionVe nous insufficiency (chronic) (peripheral)Ch ronic venous hypertension (idiopathic) with other complications of bilateral lower extremity 5 Jaya MARY RVT, JAYNE Rios. [address], [place] [address], [place], [place], [id number] , [place]. tel:[phone] Referring Provider: Andreina Martel, [address] [place], [address]. tel:[phone] [facility], [address] [place] [address] Dr Mckeon [address] 1000[place], [id number], [place] tel:[phone] [place] Chronic venous hypertension (idiopathic) with other complications of bilateral lower extremity 5 Jaya MARY RVT, JAYNE Rios. [address] [place] [address], [place], [place], [id number] , [place]. tel:[phone] Referring Provider: Andreina Martel, [address] [place] [address], [address]. tel:[phone] [facility], [address] [place] [address] [address], [id number], [place] tel:[phone] [place] Pain in right leg 4 Jaya MARY RVT, JAYNE Rios. [address] [place] [address], [place], [place], [id number] , [place]. tel:[phone] Referring Provider: Andreina Martel, [address] [place] [address], [address]. tel:[phone] Office/Outpt E&M Established 15 Mins- CT & [place] [facility], [address] [place] [address] Dr Mckeon 1000[address] 1000[place], [id number], [place] tel:[phone] [place] Venous insufficiency (chronic) (peripheral)Pa in in right leg 4 Jaya MARY RVT, JAYNE Rios. [address], [place] [address], [place], [place], [id number] , [place]. tel:[phone] Referring Provider: Andreina Martel, [address] [place], [address]. tel:[phone] Office/Outpt E&M Established 15 Mins [facility], [address] [place] [address] Dr Mckeon 1000[facility] [place], [id number], [place] tel:[phone] [place] Chronic venous hypertension (idiopathic) with other complications of bilateral lower extremityEssen tial (primary) hypertension 4 Jyaa MARY RVT, JAYNE Rios. [address] [place] [address], [place], [place], [id number] , [place]. tel:[phone] Referring Provider: Andreina Martel, [address] [place], [address]. tel:[phone] [facility], [address] [place] [address] Dr Mckeon 1000SuVickie magallon [place], [id number], [place] tel:[phone] [place] Encounter for follow-up examination after completed treatment for conditions other than malignant neVaricose veins of bilateral lower extremities with pain 4 Jaya MARY RVT, JAYNE Rios. [address] [place] [address], [place], [place], [id number] , [place]. tel:[phone] Referring Provider: Andreina aMrtel, [address] [place], [address]. tel:[phone] Office/Outpt E&M Established 15 Mins [facility], [address] [place] [address] Dr Mckeon 1000Suite [place], [id number], [place] tel:[phone] [place] Pain in right lower legPain in left lower legCramp and spasmEssential (primary) hypertension 4 Jaya MARY RVT, JAYNE Rios. [address], [place] [address], [place], [place], [id number] , [place]. tel:[phone] Referring Provider: Andreina Martel, [address] [place], [address]. tel:[phone] [facility] MD KAN, [address] [place] [address] [address] [address], [id number], [place] tel:[phone] [place] Encounter for follow-up examination after completed treatment for conditions other than malignant neVaricose veins of right lower extremity with pain Oct-3 0- 3 Camilo Newberry. [address], [address], [place], [address], [place]. tel:[phone] Referring Provider: Andreina Martel, [address] [place], [address]. tel:[phone] [facility], [address] [place] [address] [address] 1000[place], [id number], [place] tel:[phone] [place] Varicose veins of right lower extremity with other complications Oct-2 6- 3 Giovany Osborne . [address], [place] [address], [place], [place], [id number] , [place]. tel:[phone] Referring Provider: Andreina Martel, [address] [place], [address]. tel:[phone] [facility], [address] [place] [address] [address] 1000[place], [id number], [place] tel:[phone] [place] Varicose veins of right lower extremity with other complications Oct-2 - 3 Camilo Newberry. [address], [address], [place], [address], [place]. [phone] Referring Provider: Andreina Martel, [address] [place], [address]. tel:[phone] [facility], [address] [place] [address] Dr [address] 1000[place], [id number], [place] tel:[phone] [place] Varicose veins of right lower extremity with other complications Oct-2 3- 3 Camilo Newberry. [address], [address], [place], [address], [place]. tel:[phone] Referring Provider: Andreina Martel, [address] [place], [address]. tel:[phone] [facility], [address] [place] [address] [address] 1000[place], [id number], [place] tel:[phone] [place] Varicose veins of left lower extremities w oth complications Sep- 3 Giovany Osborne . [address], [address], [place], [place], [id number] , [place]. tel:[phone] Referring Provider: Andreina Martel, [address] [place] [address], [address]. tel:[phone] [facility], [address] [place] [address] [address], [place], [id number], [place] tel:[phone] [place] Encntr for f/u exam aft trtmt for cond oth than malig neoplmVaricose veins of left lower extremities with pain Sep- 3 Camilo MARY FACS RVT RPSUSANA Newberry. [address], [address], [place], [address], [place]. tel:[phone] Referring Provider: Andreina Martel, [address] [place], [address]. tel:[phone] [facility], [address] [place] [address] [address] 1000[place], [id number], [place] tel:[phone] [place] Varicose veins of left lower extremities w oth complications Sep- 3 Camilo MARY FACS RVT RPVI K Rohith. [address], [address], [place], [address], [place]. tel:[phone] Referring Provider: Andreina Martel, [address] [place], [address]. tel:[phone] [facility], [address] [place] [address] Dr Mckeon 1000[address] 1000[place], [id number], [place] tel:[phone] [place] Varicose veins of left lower extremities w oth complications 3 Camilo Newberry. [address], [place] [address], [place], [address], [place]. tel:[phone] Referring Provider: Andreina Martel, [address] [place] [address], [address]. tel:[phone] Offic/outpt E&m Estab 5 Min Trial - [facility] MD KAN, [address] [place] [address] Dr Mckeon [address] 1000[place], [id number], [place] tel:[phone] [place] - [place] Chronic venous htn w oth comp of bilateral low extrm 3 Camilo Newberry. [address] [place] [address], [place], [address], [place]. tel:[phone] Referring Provider: Andreina Martel, [address] [place] [address], [address]. tel:[phone] Office/Outpt E&M Established 25 Mins [facility], [address] [place] [address] Dr Mckeon [address] 1000[place], [id number], [place] tel:[phone] [place] Venous insufficiency (chronic) (peripheral) 3 Camilo MARY FACS Robert Newberry. [address], [facility] [address], [place], [address], [place]. tel:[phone] Referring Provider: Andreina Martel, [address] [place], [address]. tel:[phone] [facility], [address] [place] [address] Dr Mckeon [address] 1000[place], [id number], [place] tel:[phone] CVR - [facility] Venous insufficiency (chronic) (peripheral)Pa in in right legPain in left leg 3 Camilo MARY FACS [facility] JAYNE Newberry. [address], [place] [address], [place], [address], [place]. tel:[phone] Referring Provider: Andreina Martel, [address] [place], [address]. tel:[phone] Office/Oupt E&M New Pt 30 Mins [facility], [address] [facility] [address] [address], [place], [id number], tel:[phone] CVR - [facility] Venous insufficiency (chronic) (peripheral)Es sential (primary) hypertensionPr uritus, unspecifiedCra mp and spasm 3 Camilo MARY FACS [facility] JAYNE Newberry. [address], [place] [address], [place], [address], [place]. tel:[phone] Referring Provider: Andreina Krihsna MD A, [address] [place] [address], [address]. tel:[phone] Family History Family Member Type Diagnosis Age At Onset No Information Payers Payer name Insurance type Covered green party ID [employer]uh[employer] issac(s) Medical Assistance [facility] [id number] Social History Type Description Quantity Date Captured Comments Sex Female Smoking Status No Information Chief Complaint And Reason For Visit No Information Reason For Referral Reason For Referral No Information Plan Of Treatment Date Type Action Status Goal Diet education completed Goal Diet education completed Goal Diet education [...] Body mass index (BMI) 60.0-69.9, adult) ordered Appointment Cat Hernandez BOOKED Appointment Cat Hernandez BOOKED Appointment Cat Hernandez BOOKED Appointment Cat Hernandez BOOKED Appointment Cat Hernandez BOOKED Appointment Cat Hernandez BOOKED History Of Present Illness Encounter Date Complaint History Of Prese nt Illness No Information Functional Status Date Functional Assessmen t No Information Instructions Date Instruction Additional Infor jennifer Lifestyle education Related to B todd mass index (BMI) 45.0-49.9, adult Giving Encouragement to exercise Related to Body mass index (BMI) 45.0-49.9, adult Diet education Related to Body mass index (BMI) 45.0-49.9, adult Pre and post instruc tions reviewed and provided Related to Chronic venous hypertension (idiopathic) with other complications of bilateral lower extremity Patient education booklet given Related to Chronic venous hypertension (idiopathic) with other complications of bilateral lower extremity Giving Encouragement to exercise Related to Body mass index (BMI) 45.0-49.9, adult Diet education Related to Body mass index (BMI) 45.0-49.9, adult Patient education booklet given Related to Chronic venous hypertension (idiopathic) with other complications of bilateral lower extremity Compression stocking usage as conservative measure Related to Chronic venous hypertension (idiopathic) with other complications of bilateral lower extremity Lifestyle education Related to B todd mass index (BMI) 45.0-49.9, adult Giving Encouragement to exercise Related to Body mass index (BMI) 45.0-49.9, adult Diet education Related to Body mass index (BMI) 45.0-49.9, adult Patient education booklet given Related to Pain in right lower leg Compression stocking usage as conservative measure Related to Pain in right lower leg Lifestyle education Related to B todd mass index (BMI) 45.0-49.9, adult Compression stocking usage as conservative measure Related to Venous insufficiency (chronic) (peripheral) Patient education booklet given Related to Venous insufficiency (chronic) (peripheral) Lifestyle education Related to B todd mass index (BMI) 60.0-69.9, adult Giving Encouragement to exercise Related to Body mass index (BMI) 60.0-69.9, adult Diet education Related to Body mass index (BMI) 60.0-69.9, adult Assessments Type Assessment Date assessment Venous insufficiency (chronic) ( peripheral) Patient Care Teams Name Effective Dates (start - stop) Status Members No Information
--- OUTSIDE RECORDS SUMMARY | 2025-05-01 14:00 | XMS_ITS | Encounter Summary ---
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; Epiretinal membrane (ERM) of both eyes; Dry eyes, bilateral Social History Tobacco Use Types Packs/Day Years Used Date Smoking Tobacco: Never Passive Smoke Exposure: Never Smokeless Tobacco: Never Alcohol Use Standard Drinks/Week Comments Never 0 (1 standard drink = 0.6 oz pur e alcohol) Depression Answer Date Recorded Patient Health Questionnaire-9 Score 0 11/01/2024 Patient Health Questionnaire-9 Score 0 11/01/2024 Last PHQ-9: Questionnaire Data Not on file 0 11/01/2024 Housing Stability Answer Date Recorded What is [...] Date Recorded Patient Health Questionnaire-2 Score 0 11/01/2024 Internet Access Answer Date Recorded Internet Access [...] Care Team (Late st Contact Info) Description 06/13/2025 9:15 AM EST Telemedicine [facility] [address] [place] [address] Andreina Mansfield MD [address] [place] [address] 10/30/2025 1:00 PM EDT Office Visit [facility] [address] [place] [address] Constantino, Lindsey, OD [address] [place] [address] Pending Results Name Type Priority Associated Diagnoses Date /Time OCT, Retina - OU - Both Eyes Ophthalmology Routine Lamellar macular hole, left 05/01/2025 3:02 PM EST documented as of this encounter Visit Diagnoses Diagnosis Lamellar macular hole, left- Primary 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
[2025-05-01 16:02] LABS: MANUAL DIFF FLAG NO
[2025-05-01 16:10] LABS: Hematocrit 35.9 % (37.0-47.0); Hemoglobin 11.2 g/dl (12.0-16.0); Imm Gran Abs Auto 0.02 X10*3/uL (0.00-0.03); Imm Gran Pct Auto 0.3 % (0.0-0.4); Lymphocytes Absolute Auto 1.7 X10*3/uL (1.2-4.9); Mean Corpuscular HGB Conc 31.2 g/dl (31.0-35.0); Mean Corpuscular Hemoglobin 25.9 pg (27.0-33.0); Mean Corpuscular Volume 83.1 fL (80.0-98.0); NRBC Abs Auto 0.000 X10*3/uL (0.0-0.012); NRBC Pct Auto 0.0 /100WBC (0.0-0.2); Platelet Count 287 X10*3/uL (160-400); Red Blood Count 4.32 X10*6/uL (4.20-5.50); White Blood Count 7.7 X10*3/uL (4.8-10.8)
[2025-05-01 16:45] LABS: Alanine Aminotransferase 11 U/L (0-31); Albumin Level 4.1 g/dL (3.5-5.0); Alkaline Phosphatase 87 U/L (39-117); Anion Gap 14 (12-20); Aspartate Amino Transferase 25 U/L (5-31); Blood Urea Nitrogen 30 mg/dL (9-16); Calcium 8.7 mg/dL (8.4-10.2); Carbon Dioxide 27 mmol/L (22-29); Chloride 104 mmol/L (96-108); Cholesterol 181 mg/dL (<200); Estimated Glomerular Filt Rate 37; HDL Cholesterol 67 mg/dL (>40); Potassium 3.9 mmol/L (3.3-5.1); Sodium 141 mmol/L (135-145); Total Protein 6.9 g/dL (6.5-8.0); Triglycerides 128 mg/dL (<150)
--- OUTSIDE RECORDS SUMMARY | 2025-05-01 17:16 | XMS_ITS | Clinical Summary ---
Author Organization [facility] Address [address] [facility] Jennifer [place] [address] Phone Care Team Providers Care Etcher [employer]ed [employer]ards Name Role Phone Andreina Mansfield MD Primary [...] with pa in 05/26/2024 Primary hypertension 05/26/2024 Social History Tobacco Use Types Packs/Day Years [...] Sign Reading Time Taken Comments Blood Pressure 156/84 10/18/2024 1:23 PM EDT Pulse 71 10/05/2024 12:37 PM EDT Temperature - - Respiratory Rate - - Oxygen Saturation 96% 10/05/2024 12:37 PM EDT Inhaled Oxygen Concentration - - Weight 122 kg (268 lb) 10/18/2024 1:13 PM EDT Height 157.5 cm (5' 2 ) 10/18/2024 1:13 PM EDT Body Mass Index 49.02 10/18/2024 1:13 PM EDT Plan of Treatment Upcoming Encounters Date Type Department Care Team (Late st Contact Info) Description 05/08/2025 1:10 PM EST Office Visit [facility] Dr Mckeon [address] [place] [address] Barbara Marques NP [address] [place] [address] Dr Murray [address] [place] [address] 06/26/2025 2:30 PM EST Appointment [facility] [address] [place] [address] Health Maintenance Due Date Last Done Comments Pneumococcal Vaccine: 50+ Years (1 of 1 - PCV) 2007 RSV Immunization Adult Patients (1 - Risk 50-74 years 1-dose series) 2007 Zoster Vaccines (2 of 3) 08/24/2018 06/29/2018 Breast Cancer Screening 01/12/2020 01/11/2018 Colorectal Cancer Screening: Stool Based Tests (FOBT/FIT) 01/15/2024 12/10/2022 Falls Risk Assessment 01/15/2024 Hepatitis C Screening 01/15/2024 Osteoporosis Screening (Bone Density Screening) 01/15/2024 Social Influencers of Health Screening 01/15/2024 Depression Screening 2024 COVID-19 Vaccine ( - 2024-2 6 season) 2025 05/15/2021, 10/19/2020, 09/28/2020 Influenza Vaccine (#1) 2025 , 06/29/2018 Hypertension/CHF/CAD Annual BMP Blood Test 08/04/2025 08/04/2024, 05/03/2024 Cholesterol Screening (Lipid Panel) 05/03/2029 05/03/2024 [...] age to complete this topic Meningococcal B Vaccine Aged Out No l onger eligible based on patient's age to complete this topic RSV Immunization Patients Under 20 months Aged Out No longer eligible b ased on patient's age to complete this topic Varicella Vaccines Aged Out No longer eligible based on patient's age to complete this topic Insurance MEDICAID - [place] Care Teams Etcher [employer] Relationship Specialty Start Date End Date Andreina Mansfield MD [address] [phone] PCP - General 07/16/23
--- OUTSIDE RECORDS SUMMARY | 2025-05-01 17:16 | XMS_ITS | Encounter Summary ---
Author Organization [employer] Address [address] [facility] 7 [place] [address] Care Team Providers Care Specialty Sales Representative Name Role Phone Andreina Mansfield MD Primary Care Provide r Reason for Visit * Reason Onset Date Comments Call Back Request 11/12/2023 Encounter Details Date Type Department Care Team ([facility] Contact Info) Description 11/12/2023 Telephone [facility] [address] [place], [place] [phone] Andreina Mansfield MD [address] [place], [place] [phone] Call Back Request Social History Tobacco Use [...] for 3 months. Please contact son at [phone] documented in this encounter Plan of Treatment Upcoming Encounters Date Type Department Care Team (Late st Contact Info) Description 06/13/2025 9:15 AM EST Telemedicine [facility] [address] [place] [address] Andreina Mansfield MD [address] [place] [address] 10/30/2025 1:00 PM EDT Office Visit [facility] [address] [place] [address] Constantino, Lindsey, OD [address] [place] [address] documented as of this encounter Visit Diagnoses Not on filedocumented in this encounter Additional Health Concerns Assessment Noted Time PHQ-9 Depression Total Score: 5 09/22/19 24 2:19 PM EDT documented as of this encounter Care Teams Specialty Sales Representative Relationship Specialty Start Date End Date Andreina Mansfield MD [address] [place] [address] PCP - General Family Medicine 03/03/18 documented as of this encounter
--- OUTSIDE RECORDS SUMMARY | 2025-05-01 17:16 | XMS_ITS | Encounter Summary ---
Author Organization [employer] Address [address] [facility] 7 [place] [address] Care Team Providers Care Credit Investigator Name Role Phone Andreina Mansfield MD Primary Care Provide r Encounter Details Date Type Department Care Team (Latest Contact Info) Description 11/01/[address] [facility] Dental, Provider, DDS Social History [...] Info) Description 06/13/2025 9:[address] [facility] [address] [place] [address] Andreina Mansfield MD [address] [place] [address] 10/30/2025 1:00 PM EDT Office Visit [facility] [address] [place] [address] Lindsey Meeks, OD [address] [place] [address] documented as of this encounter Visit Diagnoses Not on filedocumented in this encounter Care Teams Credit Investigator Relationship Specialty Start Date End Date Andreina Mansfield MD [address] [place] [address] PCP - General Family Medicine 03/03/18 documented as of this encounter
--- OUTSIDE RECORDS SUMMARY | 2025-05-01 17:16 | XMS_ITS | Encounter Summary ---
Author Organization [email or web address] Address [address] [facility] 7t [place] [address] Care Team Providers Care Electric Engine Mechanic Name Role Phone Andreina Mansfield MD Primary Care Provide r Reason for Visit * Reason Comments Med Refill Encounter Details Date Type Department Care Team ([facility] st Contact Info) Description 11/09/2023 Refill [facility] [address] [place], [place] [phone] Andreina Mansfield MD 230 [place], [place] [phone] Vitamin B12 deficiency Social History Tobacco Use [...] Info) Description 06/13/2025 9:15 AM EST Telemedicine [facility] [address] [place] [address] Andreina Mansfield MD 230 [place] [address] 10/30/2025 1:00 PM EDT Office Visit [facility] [address] [place] [address] Lindsey Meeks, OD 230 [place] [address] documented as of this encounter Visit Diagnoses Diagnosis Vitamin B12 deficiency Other B-complex deficiencies documented in this encounter Additional Health Concerns Assessment Noted Time PHQ-9 Depression Total Score: 5 09/22/19 24 2:19 PM EDT documented as of this encounter Care Teams Electric Engine Mechanic Relationship Specialty Start Date End Date Andreina Mansfield MD [address] [place] [address] PCP - General Family Medicine 03/03/18 documented as of this encounter
--- OUTSIDE RECORDS SUMMARY | 2025-05-01 17:16 | XMS_ITS | Encounter Summary ---
Author Organization [employer] Address [address] [facility] 7t [place] [address] Care Team Providers Care Intravenous Therapy Nurse Name Role Phone Andreina Mansfield MD Primary Care Provide r Encounter Details Date Type Department Care Team (Late st Contact Info) Description 08/29/2024 Orders Only [facility] [address] [place], [place] [phone] Andreina Mansfield MD [address] [place], [place] [phone] Social History Tobacco Use Types Packs/Day Years [...] Info) Description 06/13/2025 9:15 AM EST Telemedicine [facility] [address] [place] [address] Andreina Mansfield MD [address] [place] [address] 10/30/2025 1:00 PM EDT Office Visit [facility] [address] [place] [address] Constantino, Lindsey, OD 230 [place] [address] documented as of this encounter Visit Diagnoses Not on filedocumented in this encounter Additional Health Concerns Assessment Noted Time PHQ-9 Depression Total Score: 0 08/04/19 25 11:18 AM EST documented as of this encounter Care Teams Intravenous Therapy Nurse Relationship Specialty Start Date End Date Andreina Mansfield MD [address] [place] [address] PCP - General Family Medicine 03/03/18 documented as of this encounter
--- OUTSIDE RECORDS SUMMARY | 2025-05-01 17:16 | XMS_ITS | Clinical Summary ---
Author Organization [employer] Address [address] [place] [address] Care Team Providers Care Inspector Paper Products Name Role Phone Andreina Mansfield MD Primary Care Provide r Allergies No known active allergies Medications * This document contains information received from the source organization and may not represent a complete record from that organization. UNABLE TO FIND Take 600 mg by mouth Once daily. Diovenor Active Blood Pressure Monitor kitIndications: Primary hypertension Use as directed 3x/week 1 kit 10/31/19 23 Active gabapentin (Neurontin) 300 MG capsuleIndicati ons:Chronic left-sided low back pain with left-sided sciatica,Right leg pain Take 1 capsule (300 mg) by mouth 3 times daily. 270 capsule 3 11/02/19 25 026 Active pravastatin (Pravachol) 40 MG tabletIndicatio ns:Primary hypertension TAKE 1 TABLET BY MOUTH EVERY DAY 90 tablet 3 11/25/19 25 Active cyanocobalamin (Vitamin B-12) 1000 MCG tabletIndicatio ns:Vitamin B12 deficiency TAKE 1 TABLET BY MOUTH EVERY DAY 90 tablet 3 12/01/19 25 Active D3 Super Strength 50 MCG (2000 UT) capsule TAKE 1 CAPSULE BY MOUTH EVERY DAY 90 capsule 3 12/01/19 25 Active citalopram (CeleXA) 10 MG tabletIndicatio ns:Depression, unspecified depression type TAKE 1 TABLET BY MOUTH EVERY DAY IN THE MORNING 90 tablet 3 12/01/19 25 Active Ferrous Sulfate (iron) 325 (65 Fe) MG tabletIndicatio ns:Anemia, unspecified type TAKE 1 TABLET BY MOUTH EVERY DAY 90 tablet 1 12/01/19 25 Active triamcinolone (Kenalog) 0.1 % creamIndication s:Rash APPLY TOPICALLY TO THE AFFECTED AREA(S) TWICE DAILY DIRECTED 45 g 1 04/21/20 25 Active amLODIPine (Norvasc) 10 MG tabletIndicatio ns:Primary hypertension TAKE 1 TABLET BY MOUTH EVERY DAY 90 tablet 1 04/21/20 25 Active Diclofenac Sodium 1 % gelIndications: Chronic bilateral low back pain without sciatica APPLY 2 GRAMS TOPICALLY TO AFFECTED AREA(S) TWICE DAILY DIRECTED 300 g 1 04/21/20 25 Active hydroCHLOROthia zide 12.5 MG tabletIndicatio ns:Primary hypertension TAKE 1 TABLET BY MOUTH EVERY DAY 90 tablet 1 04/21/20 25 Active lidocaine (Lidoderm) 5 % patchIndication s:Chronic left-sided low back pain with left-sided sciatica Apply 1 patch topically Once per day. Remove & discard patch within 12 hours or as directed by . 30 patch 2 04/21/20 25 Active triamcinolone (Kenalog) 0.1 % creamIndication s:Rash APPLY TOPICALLY TWICE DAILY 45 g 1 09/27/19 25 025 Discontinued lidocaine (Lidoderm) 5 % patchIndication s:Chronic left-sided low back pain with left-sided sciatica Apply 1 patch topically Once per day. Remove & discard patch within 12 hours or as directed by . 30 patch 2 11/02/19 25 025 Discontinued(Re order (will not trigger notification to Pharmacy)) amLODIPine (Norvasc) 10 MG tabletIndicatio ns:Primary hypertension TAKE 1 TABLET BY MOUTH EVERY DAY 90 tablet 12/20/19 25 025 Discontinued hydroCHLOROthia zide 12.5 MG tabletIndicatio ns:Primary hypertension TAKE 1 TABLET BY MOUTH EVERY DAY 90 tablet 12/20/19 25 025 Discontinued Diclofenac Sodium 1 % gelIndications: Chronic bilateral low back pain without sciatica APPLY 2 GRAMS TOPICALLY TWICE A DAY NEEDED 300 g 12/20/19 25 025 Discontinued Active Problems Problem Noted Date Diagnosed Date Anxiety and depression 04/18/2025 Chronic right shoulder pain 04/18/2025 Assessment & Plan (04/18/2025 12:19 PM EDT): Acetaminophen as needed Chronic left-sided low back pain with left-sided sciatica 11/01/2024 Assessment & Plan (11/01/2024 5:14 PM EDT): I will order an MRI of her back, I will prescribe the patient lidocaine patches Tylenol as needed I also prescribed for her Flexeril 5 mg every 8 hours if needed I explained to her side effects tenderness and not to take it with other medications that could make her feel drowsy Forgetfulness 11/01/2024 Assessment & Plan (11/01/2024 5:15 PM EDT): Patient is trying to get her citizenship test done but she keeps forgetting the answers for the questions, she would like to be evaluated for forgetfulness I will do a referral to neurology Class 3 severe obesity due t o excess calories with serious comorbidity and body mass index (BMI) of 40.0 to 44.9 in adult 08/04/2024 Assessment & Plan (08/04/2024 3:19 PM EST): Today extensive discussion was done about life style modifications I advise healthy diet (low calorie) and cardiovascular exercise She declines medications for weight loss for now Bruise 08/04/2024 Assessment & Plan (08/04/2024 3:20 PM EST): Likely due to trauma, platelets, PT and PTT will be checked with labs Primary hypertension 05/26/2024 Rash 05/03/2024 Atypical chest pain 05/03/2024 Assessment [...] PRN Depression, unspecified 12/18/2022 Assessment & Plan (11/01/2024 5:15 PM EDT): Continue to take citalopram 10 mg and follow-up with therapist Assessment & Plan (05/03/2024 10:47 AM EST): Counseling done [facility] called today Patient will like to have an sinhala speaking therapist Assessment & Plan (09/22/2023 2:39 PM EDT): PROGRESS NOTE: ID: Cat is a 68 y.o. White cis-female with previous documented hx of Depression No previous hx of MH services; who presents for anxiety and depressive sxs. Currently lives with son, his and grand children. 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 Struggling with divorce that occurred 2 years [...] Self Plan Patient to reach out to [facility] team as needed, Comply with medication , and continue to using effective coping mechanisms. Assessment & Plan (08/12/2023 9:41 AM EST): C/w citalopram 10mg daily Referral to [facility] today RTC 3 months Assessment & Plan (07/15/2023 12:43 PM EST): I will start her on citalpram 10mg daily Patient will go to sinhala speaking therapist RTC 4 weeks televisit Assessment [...] family support PLAN: 1. Follow up with [facility]: Not recommended for follow-up 2. Patient goal is to engage in OP therapy 3. Behavioral Recommendations a. Decrease depression symptoms b. Increase coping mechanisms Stage 3b chronic kidney disease ([facility]/HCC) 2022 Assessment & Plan (05/03/2024 10:46 AM EST): [...] Encounter for preventative adult health care exa mination 10/30/2022 Assessment & Plan (10/31/2022 4:32 PM EDT): Please refer to HPI Postmenopause bleeding 10/30/2022 Assessment & Plan (08/12/2023 9:41 AM EST): I ask them to please be sure and verified if the water server that they want is going to accept [...] with specialist Hypertension 11/27/2017 Assessment & Plan (11/01/2024 5:13 PM EDT): Blood pressure control today is slightly elevated likely due to pain, I advised low-sodium diet and weight reduction and to continue his medication regimen Assessment & Plan (08/04/2024 3:19 PM EST): I advised: - Aerobic exercise to reduce BP. Initial [...] consulting health care provider Assessment & Plan (05/03/2024 10:46 AM EST): [...] organization. 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; Epiretinal membrane (ERM) of both eyes; Dry eyes, bilateral 05/01/2025 Travel 04/20/2025 Refill [facility] [address] [place] [address] Andreina Mansfield MD Chronic left-sided low back pain with left-sided sciatica 04/20/2025 Refill [facility] [address] [place] [address] Lencho, Hui, BLOOD BANK BUSINESS MANAGER Rash; Primary hypertension; Chronic bilateral low back pain without sciatica; Chronic left-sided low back pain with left-sided sciatica 04/18/2025 9:30 AM EDT Office Visit [facility] [address] [place] [address] Andreina Mansfield MD Screening for colon cancer (Primary Dx); Encounter for screening mammogram for malignant neoplasm of breast; Asymptomatic menopausal state; Encounter for preventive care; Forgetfulness; Anxiety and depression; Chronic right shoulder pain 04/18/2025 Travel 04/17/2025 Telephone [facility] [address] [place] [address] Andreina Mansfield MD Chart Prep 04/11/2025 Patient Outreach [facility] [address] [place] [address] Andreina Mansfield MD Pre-visit Planning ([facility] unable to reach [facility]) from Last 3 Months Immunizations Immunization Administration Dates Next Due Influenza injectable quadrivalent [...] Sign Reading Time Taken Comments Blood Pressure 132/78 04/18/2025 9:36 AM EDT Pulse 80 04/18/2025 9:36 AM EDT Temperature 35.6 C (96 F) 04/18/2025 9:36 AM EDT Respiratory Rate 15 04/18/2025 9:36 AM EDT Oxygen Saturation 95% 04/18/2025 9:36 AM EDT Inhaled Oxygen Concentration - - Weight 119 kg (261 lb 6.4 oz) 04/18/2025 9:36 AM EDT Height 172.7 cm (5' 8 ) 04/18/2025 9:36 AM EDT Body Mass Index 39.75 04/18/2025 9:36 AM EDT Plan of Treatment Upcoming Encounters Date Type Department Care Team (Late st Contact Info) Description 06/13/2025 9:15 AM EST Telemedicine [facility] [address] [place] [address] Andreina Mansfield MD [address] [place] [address] 10/30/2025 1:00 PM EDT Office Visit [facility] [address] [place] [address] Lindsey Meeks, OD [address] [place] [address] Health Maintenance Due Date Last Done Comments CT Colonography 1957 Colonoscopy 1957 Dental Prophylaxis 1957 Dental X-Ray: Full Mouth 1957 FIT DNA/Cologuard 1957 Sigmoidoscopy 1957 Hepatitis C Screening 1975 Pneumococcal Vaccine: 50+ Years (1 of 1 - PCV) 2007 Zoster Vaccines (2 of 3) 08/24/2018 06/29/2018 Mammogram 01/12/2020 01/11/2018 Dental Oral Exam 02/08/2021 08/10/2020 Dental X-Ray: Bitewings 12/19/2021 12/18/2020, 08/10 Colorectal Cancer Screening 12/11/2023 FIT 12/11/2023 12/10/2022 FOBT 12/11/2023 12/10/2022 COVID-19 Vaccine ( - season) 2025 05/15/2021, 10/19/2020, 09/28/2020 Influenza Vaccine (#1) 2025 05/14/2021, 2018 Alcohol/Substance Use Screening 05/03/2025 05/03/2024 SDOH Screening 08/04/2025 08/04/2024 Depression Screening 11/01/2025 11/01/2024, 11/02/19 25 Diabetes: Hemoglobin A1C 05/01/2026 025, 08/04/2024, 11/03/2023, Additional history exists Tobacco Screening 05/01/2026 05/01/2025 Lipid Panel 05/01/2030 05/01/2025, 04/22, 10/30/2022, Additional history exists DTaP/Tdap/Td Vaccines (2 - Td or Tdap) 12/25/2030 12/25/2020 RSV Patients and Patients Aged 60 years or older (1 - 1-dose 75+ series) 2032 Cervical Cancer Screening Discontinued HPV/Cotest Discontinued 05/14/2021 [...] Procedure Name Priority Date/Time Associated Diagnosis Comments TSH W/REFLEX TO FT4 Routine 05/01/2025 3 :13 PM EST Encounter for preventive care VITAMIN D,25-OH,TOTAL,IA Routine 05/01/2025 3:13 PM EST Encounter for preventive care LIPID PANEL, STANDARD Routine 05/01/2025 3:13 PM EST Encounter for preventive care HEMOGLOBIN A1C Routine 05/01/2025 3:13 PM EST Encounter for preventive care COMPREHENSIVE METABOLIC PANEL Routine 05/01/2025 3:13 PM EST Encounter for preventive care CBC WITH AUTO DIFFERENTIAL Routine 05/01/2025 3:13 PM EST Encounter for preventive care FECAL GLOBIN BY IMMUNOCHEMISTRY Routine 12/10/2022 12:00 [...] Recently Relevant to Health Maintenance Results * Vitamin D, 25-Hydroxy, Total, Immunoassay (05/01/2025 3:13 PM EST) Vitamin D 25-OH Total 44.2 >30 ng/mL [facility] Comment: Health Based Reference Values*< 20 ng/mL Gmzzgytca45-10 ng/mL Insufficient> 30 ng/mL Sufficient*Marleny MCCULLOUGH. N Engl J Med. 2007;357:266-280There is no well-established upper level of normal vitamin Dlevels. Some laboratories use 50 ng/mL as an upper limit ofnormal. However, toxicity is patient-dependent and may occurat any level. Careful correlation with the patient'spresentation is necessary and, if there is concern forvitamin D toxicity, treatment should be consideredirrespective of the serum level.Care must be taken in interpreting Vitamin D results fromdifferent laboratories and methodologies. Published datademonstrated that results from patients undergoinghemodialysis may show a negative bias when tested withvarious automated 25-OH vitamin D assays when compared toLC-MS/MS.When testing samples from patients whose predominant form ofVitamin D is Vitamin D2, such as patients receiving VitaminD2 supplementation, results that are subtherapeutic shouldbe confirmed with another method such as LC-MS/MS. Blood Venous blood specimen / Unknown 05/01/2025 3:13 PM EST 05/01/2025 3:57 PM EST us Andreina Krishna MD LAB BLOOD ORDERABLES Final Result Performing Organization Address City/[facility]/ZIP Co de Phone Number [facility] [address] [place] [phone] * TSH with Reflex to Free T4 (05/01/2025 3:13 PM EST) TSH reflex Free T4 0.74 0.32 - 4.0 uIU/mL [facility] Blood Venous blood specimen / Unknown 05/01/2025 3:13 PM EST 05/01/2025 3:57 PM EST Andreina Krishna MD LAB BLOOD ORDERABLES Final Result Performing Organization Address City/[facility]/ZIP Co de Phone Number [facility] [address] [place] [phone] * (ABNORMAL) CBC auto differential (05/01/2025 3:13 PM EST) White Blood Count 7.7 4.8 - 10.8 X10*3/uL [facility] Red Blood Count 4.32 4.20 - 5.50 X10*6/uL [facility] Hemoglobin 11.2(L) 12.0 - 16.0 g/dl [facility] Hematocrit 35.9(L) 37.0 - 47.0 % [facility] Mean Corpuscular Volume 83.1 80.0 - 98.0 fL [facility] Mean Corpuscular Hemoglobin 25.9(L) 27.0 - 33.0 pg [facility] Mean Corpuscular HGB Conc 31.2 31.0 - 35.0 g/dl [facility] Red Cell Distribution Width 14.5 11.0 - 16.0 % [facility] Platelet Count 287 160 - 400 X10*3/uL [facility] Mean Platelet Volume 11.0 9.4 - 12.3 fL [facility] Neutrophils Percent Auto 66.0 45 - 73 % [facility] Imm Gran Pct Auto 0.3 0.0 - 0.4 % [facility] Lymphocytes Percent Auto 22.2 20 - 40 % [facility] Monocytes Percent Auto 10.7 2 - 11 % [facility] Eosinophils Percent Auto 0.4 0 - 4 % [facility] Basophils Percent Auto 0.4 0 - 2 % [facility] NRBC Pct Auto 0.0 0.0 - 0.2 /100WBC [facility] Neutrophils Absolute Auto 5.1 2.0 - 8.3 x10*3/uL [facility] Imm Gran Abs Auto 0.02 0.00 - 0.03 X10*3/uL [facility] Lymphocytes Absolute Auto 1.7 1.2 - 4.9 X10*3/uL [facility] Monocytes Absolute Auto 0.8 0.1 - 1.2 X10*3/uL [facility] Eosinophils Absolute Auto 0.0 0.0 - 0.4 X10*3/uL [facility] Basophils Absolute Auto 0.0 0.0 - 0.2 X10*3/uL [facility] NRBC Abs Auto 0.000 0.0 - 0.012 X10*3/uL [facility] Blood Venous blood specimen / Unknown 05/01/2025 3:13 PM EST 05/01/2025 3:57 PM EST Andreina Krishna MD LAB BLOOD ORDERABLES Final Result Performing Organization Address City/[facility]/ZIP Co de Phone Number [facility] [address] [place] [phone] * Hemoglobin A1c (05/01/2025 3:13 PM EST) Hemoglobin A1c 5.8 <6.0 % [facility] Comment:Hemoglobin A1C Refer ence Range Adults: 4.8 - 6.0 % Non diabetic: < 6.0 % Goal: < 7.0 %Additional Action Suggested: > 8.0 %Note: Hemoglobin A1c results are invalid for patients with abnormal amounts of HbF. Blood transfusions may impact the HbA1c concentration in the patient sample. Estimated Average Glucose 120 mg/dL [facility] Comment:eAG = Estimated ave rage glucose which is %A1C expressed asaverage glucose, using the formula of the V0K-HjihpcrFgrlasd Glucose study (ADAG), Diabetes Care, Vol.31,#8,Jan. 2007 Blood Venous blood specimen / Unknown 05/01/2025 3:13 PM EST 05/01/2025 3:57 PM EST us Andreina Krishna MD LAB BLOOD ORDERABLES Final Result Performing Organization Address City/[facility]/ZIP Co de Phone Number [facility] [address] [place] [phone] * Lipid Panel, Standard (05/01/2025 3:13 PM EST) Triglycerides 128 <150 mg/dL [facility] Comment:Desirable Triglyceri de: less than 150 mg/dLBorderline High Triglyceride 150-199 mg/dLHigh Triglyceride: 200-499 mg/dLVery High Triglyceride: greater than or equal to 5OO mg/dL Cholesterol 181 <200 mg/dL [facility] Comment:Desirable Cholestero l: less than 200 mg/dLBorderline High Cholesterol: 200-239 mg/dLHigh Cholesterol: greater than 239 mg/dL LDL Cholesterol Calculated 89 <100 mg/dL [facility] Comment:Desirable LDL: less than 100 mg/dLNear Optimal/Above Optimal LDL: 110- 129 mg/dLBorderline High LDL: 130-159 mg/dLHigh LDL: 160-189 mg/dLVery High LDL: greater than or equal to 190 mg/dL HDL Cholesterol 67 >40 mg/dL [facility] Comment:Desirable HDL: great er than 40 mg/dL Note: This HDL assay may give artificially low results in patients with liver disease. Blood Venous blood specimen / Unknown 05/01/2025 3:13 PM EST 05/01/2025 3:57 PM EST Andreina Krishna MD LAB BLOOD ORDERABLES Final Result [facility] [address] [place] [phone] * (ABNORMAL) Comprehensive Metabolic Panel (05/01/2025 3:13 PM EST) Sodium 141 135 - 145 mmol/L [facility] Potassium 3.9 3.3 - 5.1 mmol/L [facility] Chloride 104 96 - 108 mmol/L [facility] Carbon Dioxide 27 22 - 29 mmol/L [facility] Anion Gap 14 12 - 20 [facility] Urea Nitrogen (BUN) 30(H) 9 - 16 mg/dL [facility] Creatinine, Serum 1.41(H) 0.5 - 1.4 mg/dL [facility] Estimated Glomerular Filt Rate 37 [facility] Comment:Chronic Kidney Disea se: Estimated GFR < 60 mL/min/[id number] Kidney Disease: Estimated GFR < 15 mL/min/1.73m2 Glucose 81 60 - 115 mg/dL [facility] Calcium 8.7 8.4 - 10.2 mg/dL [facility] Bilirubin, Total 0.2 0.0 - 1.0 mg/dL [facility] Aspartate Amino Transferase 25 5 - 31 U/L [facility] Alanine Aminotransferase 11 0 - 31 U/L [facility] Total Protein 6.9 6.5 - 8.0 g/dL [facility] Albumin Level 4.1 3.5 - 5.0 g/dL [facility] Alkaline Phosphatase 87 39 - 117 U/L [facility] Blood Venous blood specimen / Unknown 05/01/2025 3:13 PM EST 05/01/2025 3:57 PM EST us Andreina Krishna MD LAB BLOOD ORDERABLES Final Result Performing Organization Address City/[facility]/ZIP Co de Phone Number [facility] [address] [place] [phone] * Fecal Globin by Immunochemistry (12/10/2022 12:00 AM EDT) Fecal Globin By Immunochemistry SEE NOTE [facility] [place] [facility] Comment: FECAL GLOBIN BY IMMUNOCHEMISTRY Micro Number: [id number] Test Status: Final Specimen Source: Insure (tm) fobt test card Specimen Quality: Adequate Fecal Globin: Not Detected Test results may be invalid as no date of collection was provided. Specimens are stable for 14 days. 12/10/2022 12/17/2022 1:0 4 PM EDT Narrative [facility] - 12/18/2022 10:41 AM EDT FASTING: UNKNOWN us Andreina Krishna MD LAB BODY FLUIDS AND S TOOLS ORDERABLES Final Result [facility] [address], [place] [address] [facility] [place] [facility] [address] [place] [phone] * THINPREP TIS PAP AND HPV mRNA E6/E7 REFLEX HPV 16,18/45 (05/14/2021 4:29 PM EST) Clinical Information: None given [facility] COMMENT SEE COMMENT [facility] Comment: EXPLANATORY NOTE: The Pap is a screening test for cervical cancer. It is not a diagnostic test and is subject to false negative and false positive results. It is most reliable when a satisfactory sample, regularly obtained, is submitted with relevant clinical findings and history, and when the Pap result is evaluated along with historic and current clinical information. COMMENT: This Pap test has been evaluated with computer assisted technology. [facility] Patient Observation Assistant: SEE COMMENT [facility] Comment: SXA, CT(ASCP) CT screening location: [place] [address] HPV nRNA E6/E7 Not Detected Not Detected [facility] Comment: Methodology: Textile Technologist-Mediated Amplification This assay detects E6/E7 viral messenger RNA (mRNA) from 14 high-risk HPV types (16,18,31,33,35,39,45,51,52,56,58,59,66,68). The analytical performance characteristics of this assay have been determined by [facility]. The modifications have not been cleared or approved by the FDA. This assay has been validated pursuant to the CLIA regulations and is used for clinical purposes. For additional information, please refer to http://education.Perfect Channel/faq/SEY247o7 (This link if provided for information/ educational purposes only.) Interpretation/Re sult: Negative for intraepithelial lesion or malignancy. [facility] LMP: NONE [facility]IV[facility] Prev. BX: NONE [facility]IV[facility] Prev. PAP: NONE [facility]IV[facility] SOURCE: None given [facility] Statement Of Adequacy: SEE COMMENT [facility] Comment: Satisfactory for evaluation. Endocervical/transformation zone component absent. 05/14/2021 4:29 PM EST us Andreina Krishna MD LAB PATHOLOGY ORDERAB LES Final Result [facility] [address] [place] [address], * DIGITAL BILATERAL SCREEN 1 (01/11/2018 3:25 PM EDT) Anatomical Region Laterality Modality Breast Bilateral Mammography 01/11/2018 3:25 PM EDT Narrative 01/12/2018 7:26 AM EDT Refer to the Notes tab for result details [facility] Procedure: DIGITAL BILATERAL SCREEN 1 Procedure Note Provider, Zoya, - 09/13/2022 Refer to the Notes tab for result details [facility] Procedure: DIGITAL BILATERAL SCREEN 1 Historical Provider MD SEE BI PROCEDURES Final R esult from Last 3 Months or Most Recently Relevant to Health Maintenance Insurance [facility] STANDARD DENTAL-[facility] MEDICAID STAND ADULT Care Teams Inspector Paper Products Relationship Specialty Start Date End Date Andreina Mansfield MD [address] [place] [phone] PCP - General Family Medicine 03/03/18
--- OUTSIDE RECORDS SUMMARY | 2025-05-01 17:16 | XMS_ITS | Encounter Summary ---
Author Organization [employer] Address [address] [facility] 7 [place] [address] Care Team Providers Care Cafe Site Attendant Name Role Phone Andreina Mansfield MD Primary Care Provide r Reason for Visit * Reason Onset Date Comments Requesting Call Back 07/22/2023 Encounter Details Date Type Department Care Team ([facility] st Contact Info) Description 07/22/2023 Telephone [facility] MEDICINE [address] [place], [place] [phone] Andreina Mansfield MD [address] [place], [place] [phone] Requesting Call Back Social History Tobacco Use [...] Miscellaneous Notes * Telephone Encounter - Gwyn Wilks - 07/22/2023 9:47 AM EST Tc from Wendi from [facility] requesting call back regarding referral that was faxed over. Wendi stated their office specializes in pain management and they received a referral for orthopedic surgery.Wendi is requesting clarification. Please contact Wendi at [phone]. documented in this encounter Plan of Treatment Upcoming Encounters Date Type Department Care Team (Late st Contact Info) Description 06/13/2025 9:15 AM EST Telemedicine [facility] MEDICINE [address] [place] [address] Andreina Mansfield MD [address] [place] [address] 10/30/2025 1:00 PM EDT Office Visit [facility] OPTOMETRY [address] [place] [address] Lindsey Meeks, OD [address] [place] [address] documented as of this encounter Visit Diagnoses Not on filedocumented in this encounter Additional Health Concerns Assessment Noted Time PHQ-9 Depression Total Score: 0 10/31/19 23 2:52 PM EDT documented as of this encounter Care Teams Cafe Site Attendant Relationship Specialty Start Date End Date Andreina Mansfield MD [address] [place] [phone] PCP - General Family Medicine 03/03/18 documented as of this encounter
--- OUTSIDE RECORDS SUMMARY | 2025-05-01 17:16 | XMS_ITS | Clinical Summary ---
Author Organization [facility] Address [address] [place] [address] Care Team Providers Care Bobbin Coil Winder Name Role Phone Andreina Mansfield MD Primary [...] Administration Dates Next Due Covid-19, Pfizer, mRNA, [place] valent, PF 30 mcg/0.3 mL dose (for [...] 60 03/04/2021 12:08 PM EDT Temperature 36.6 C (97.8 F) 03/04/2021 12:08 PM EDT Respiratory Rate 0 03/04/2021 12:0 [...] Sigmoidoscopy 1957 Mammogram 1997 Osteoporosis Screening 2007 Pneumococcal Vaccine: 50+ Years (1 of 1 - PCV) 2007 Zoster Vaccines (2 of 3) 08/24/2018 06/29/2018 Alcohol/Substance Use Screening 2024 Depression Screening and Follow-Up 2024 Health Care Proxy Review 2024 Social Drivers of Health Annual Screening 2024 COVID-19 Vaccine (4 - 2024-2 6 season) 2025 05/15/2021, 10/19/2020, 09/28/2020 Influenza Vaccine (#1) 2025 , 06/29/2018 DTaP,Tdap,and Td Vaccines (2 - Td or Tdap) 12/25/2030 12/25/2020 RSV Vaccine (60+ years old a nd patients) (1 - 1-dose 75+ series) 2032 Hepatitis B Vaccines Aged Out No long er eligible based on patient's age to complete this topic Medical Devices Implanted Type Area Brand Ambassador Promotional Model Device Identifier Shelf Expiration Date Model / Serial / Lot Lens Intraocular [employer]per[employer] Natural Single Piece Acrylic With Blue Light Filter [id number] 21.0d - [id number] - [id number] Implanted:Qty: 1 on 02/05/2021 by Leobardo Galicia MD at [facility] Lens Left: Eye NILSA 10/13/2025 SN60WF 21.0 / [id number] / Lens Intraocular [employer]per[employer] Natural Single Piece Acrylic With Blue Light Filter [id number] 21.0d - [id number] - [id number] Implanted:Qty: 1 on 03/04/2021 by Leobardo Galicia MD at [facility] Lens Right: Eye NILSA 11/18/2025 SN60WF 21.0 / [id number] / Insurance [facility] Advance Directives * Full Code (Latest Code Status on File) Date Activated Date Inactivated Comments 03/04/2021 11:02 AM 03/04/2021 2:31 PM * Full Code Date Activated Date Inactivated Comments 02/05/2021 12:22 PM 02/05/2021 4:11 PM Care Teams Bobbin Coil Winder Relationship Specialty Start Date End Date Andreina Mansfield MD [address] [place] [address] PCP - General 11/13/20
--- OUTSIDE RECORDS SUMMARY | 2025-05-01 17:16 | XMS_ITS | Encounter Summary ---
Author Organization [employer] Address [address] [facility] 7t [place] [address] Care Team Providers Care Lace Machine Operator Name Role Phone Andreina Mansfield MD Primary Care Provide r Encounter Details Date Type Department Care Team (Late st Contact Info) Description 05/19/2023 Abstract [facility] MEDICINE [address] [place], [place] [phone] Griselda Tan Social History Tobacco Use Types [...] Info) Description 06/13/2025 9:15 AM EST Telemedicine [facility] MEDICINE [address] [place] [address] Andreina Mansfield MD [address] [place] [address] 10/30/2025 1:00 PM EDT Office Visit [facility] OPTOMETRY [address] [place] [address] Constantino, Lindsey, OD [address] [place] [address] documented as of this encounter Visit Diagnoses Not on filedocumented in this encounter Additional Health Concerns Assessment Noted Time PHQ-9 Depression Total Score: 0 10/31/19 23 2:52 PM EDT documented as of this encounter Care Teams Lace Machine Operator Relationship Specialty Start Date End Date Andreina Mansfield MD [address] [place], [place] [phone] PCP - General Family Medicine 03/03/18 documented as of this encounter
--- OUTSIDE RECORDS SUMMARY | 2025-05-01 17:16 | XMS_ITS | Encounter Summary ---
Author Organization [employer] Address [address] [facility] 7t [place] [address] Care Team Providers Care Cobol Mainframe Developer Name Role Phone Andreina Mansfield MD Primary Care Provide r Encounter Details Date Type Department Care Team (Latest Contact Info) Description 05/01/2025 Travel Social History Tobacco Use Types Packs/Day Years [...] Info) Description 06/13/2025 9:15 AM EST Telemedicine [facility] MEDICINE [address] [place] [address] Andreina Mansfield MD [address] [place] [address] 10/30/2025 1:00 PM EDT Office Visit [facility] OPTOMETRY [address] [place] [address] Constantino, Lindsey, OD [address] [place] [address] documented as of this encounter Visit Diagnoses Not on filedocumented in this encounter Additional Health Concerns Assessment Noted Time PHQ-9 Depression Total Score: 0 11/02/19 25 2:41 PM EDT documented as of this encounter Care Teams Cobol Mainframe Developer Relationship Specialty Start Date End Date Andreina Mansfield MD [address] [place] [address] PCP - General Family Medicine 03/03/18 documented as of this encounter
[2025-05-01 17:26] LABS: Folate 9.2 ng/mL (> or = 4.0); Vitamin B12 390 pg/mL (200-900)
[2025-05-02 06:53] LABS: HIV Num 1 0.07 S/CO (0.00-0.99); ~HepC Num1 0.28 S/CO (0.00-0.79); ~Hepatitis C Antibody Nonreactive (Nonreactive)
== END 2025-05-01 15:06 | disposition home or self-care (01) ==
LOC: HO.HHCL 15:05
PROVIDERS: PCP Internal Medicine; Visit Provider Internal Medicine
DX: Z00.00 Encounter for general adult medical examination without abnormal findings (principal); Z11.4 Encounter for screening for human immunodeficiency virus [HIV]; Z20.6 Contact with and (suspected) exposure to human immunodeficiency virus [HIV]; Z11.59 Encounter for screening for other viral diseases
CPT/HCPCS: 36415; 80053; 80061; 82306; 82607; 82746; 83036; 84443; 85025; 86803; 87389

== ENCOUNTER → 2025-05-17 16:00 | Outpatient (BNV) | payer MEDICAID, SELFPAY | PROVIDERS: PCP Internal Medicine; Visit Provider Radiology Diagnostic Radiology | DX: M46.96 Unspecified inflammatory spondylopathy, lumbar region (principal); M25.48 Effusion, other site | CPT/HCPCS: 72148 ==

== ENCOUNTER 2025-05-17 16:22 | Outpatient (REF) | payer MEDICAID, SELFPAY ==
--- OUTSIDE RECORDS SUMMARY | 2024-12-29 09:53 | XMS_ITS | Continuity of Care Document ---
Author Organization [facility] Address [address] [place] [address] Phone Care Team Providers Care Tso Name Role Phone Jaya MARY, RVT, RPSUSANA, [...] Diagnoses Date Provider Providers Copied on Encounter [facility], [address] [place] [address] Dr Mckeon 1000[facility] 1000[place], [id number], tel:[phone] CVR - [place] - [place] Venous insufficiency (chronic) (peripheral) 5 Jaya MARY RVT, JAYNE Rios. [address] [place] [address], [place], [place], [id number] , [place]. tel:[phone] [facility], [address] [place] [address] Dr Mckeon 1000[place]ina 1000[place]ickie [place], [id number], [place] tel:[phone] CVR - [place] - [place] Venous insufficiency (chronic) (peripheral) 5 Jaya MARY RVT, JAYNE Rios. [address] [place] [address], [place], [place], [id number] , [place]. tel:[phone] Office/Outpt E&M Established 25 Mins- CT & [place] [facility], [address] [place] [address] Dr Mckeon 1000Suite 1000Vickie [place], [id number], [place] tel:[phone] CVR - [place] - [place] Essential (primary) hypertensionVe nous insufficiency (chronic) (peripheral)Ch ronic venous hypertension (idiopathic) with other complications of bilateral lower extremity 5 Jaya MARY RVT, JAYNE Rios. [address] [facility], [place] [address], [place], [place], [id number] , [place]. tel:[phone] Referring Provider: Andreina aMrtel, [address] [place], [address]. tel:[phone] [facility], [address] [place] [address] Dr Mckeon 1000Suite 1000Vickie [place], [id number], [place] tel:[phone] CVR - [place] - [place] Chronic venous hypertension (idiopathic) with other complications of bilateral lower extremity 5 Jaya MARY RVT, JAYNE Rios. [address] [place] [address], [place], [place], [id number] , [place]. tel:[phone] Referring Provider: Andreina Martel, [address] [place] [address], [address]. tel:[phone] [facility], [address] [place] [address] [address] 1000Vickie MD, [id number], [place] tel:[phone] CVR - [place] - [place] Pain in right leg 4 Jaya MARY RVT, JAYNE Rios. [address] [place] [address], [place], [place], [id number] , [place]. tel:[phone] Referring Provider: Andreina Martel, [address] [place] [address], [address]. tel:[phone] Office/Outpt E&M Established 15 Mins- CT & [place] [facility], [address] [place] [address] Dr Mckeon 1000Suite 1000Vickie MD, [id number], [place] tel:[phone] CVR - [place] - [place] Venous insufficiency (chronic) (peripheral)Pa in in right leg 4 Jaya MARY RVT, JAYNE Rios. [address] [facility], [place] [address], [place], [place], [id number] , [place]. tel:[phone] Referring Provider: Andreina Martel, [address] [place], [address]. tel:[phone] Office/Outpt E&M Established 15 Mins [facility], [address] [place] [address] Dr Mckeon 1000[facility] [place], [id number], [place] tel:[phone] CVR - [place] - [place] Chronic venous hypertension (idiopathic) with other complications of bilateral lower extremityEssen tial (primary) hypertension 4 Jaya MARY RVT, JAYNE Rios. [address] [address], [place], [place], [id number] , [place]. tel:[phone] Referring Provider: Andreina Martel, [address] [place], [address]. tel:[phone] [facility], [address] [place] [address] Dr Mckeon 1000SuVickie magallon MD, [id number], [place] tel:[phone] CVR - [place] - [place] Encounter for follow-up examination after completed treatment for conditions other than malignant neVaricose veins of bilateral lower extremities with pain 4 Jaya MARY RVT, JAYNE Rios. [address] [address], [place], [place], [id number] , [place]. tel:[phone] Referring Provider: Andreina Martel, [address] [place], [address]. tel:[phone] Office/Outpt E&M Established 15 Mins [facility], [address] [place] [address] Dr Mckeon 1000Suite [place]ickie [place], [id number], [place] tel:[phone] CVR - [place] - [place] Pain in right lower legPain in left lower legCramp and spasmEssential (primary) hypertension 4 Jaya MARY RVT, JAYNE Rios. [address] [facility], [place] [address], [place], [place], [id number] , [place]. tel:[phone] Referring Provider: Andreina Martel, [address] [place], [address]. tel:[phone] [facility] K[facility], [address] [place] [address] [address] 1000Vickie [place], [id number], [place] tel:[phone] CVR - [place] - [place] Encounter for follow-up examination after completed treatment for conditions other than malignant neVaricose veins of right lower extremity with pain Oct-3 0- 3 Camilo Newberry. [address] [facility], [address], [place], [address], [place]. tel:[phone] Referring Provider: Andreina Martel, [address] [place], [address]. tel:[phone] [facility], [address] [place] [address] [address] 1000Vickie [place], [id number], [place] tel:[phone] CVR - [place] - [place] Varicose veins of right lower extremity with other complications Oct-2 6- 3 Giovany Osborne . [address] [facility], [place] [address], [place], [place], [id number] , [place]. tel:[phone] Referring Provider: Andreina Martel, [address] [place], [address]. tel:[phone] [facility], [address] [place] [address] [address] 1000Vickie [place], [id number], [place] tel:[phone] CVR - [place] - [place] Varicose veins of right lower extremity with other complications Oct-2 - 3 Camilo Newberry. [address] [facility], [address], [place], [address], [place]. [phone] Referring Provider: Andreina Martel, [address] [place], [address]. tel:[phone] [facility], [address] [place] [address] Dr [address] 1000Vickie MD, [id number], [place] tel:[phone] CVR - [place] - [place] Varicose veins of right lower extremity with other complications Oct-2 3- 3 Camilo Newberry. [address] [facility], [address], [place], [address], [place]. tel:[phone] Referring Provider: Andreina Martel, [address] [place], [address]. tel:[phone] [facility], [address] [place] [address] [address] 1000Vickie MD, [id number], [place] tel:[phone] CVR - [place] - [place] Varicose veins of left lower extremities w oth complications Sep- 3 Giovany Osborne . [address] [facility], [address], [place], [place], [id number] , [place]. tel:[phone] Referring Provider: Andreina Martel, [address] [place] [address], [address]. tel:[phone] [facility], [address] [place] [address] [address], [place], [id number], [place] tel:[phone] CVR - [place] - [place] Encntr for f/u exam aft trtmt for cond oth than malig neoplmVaricose veins of left lower extremities with pain Sep- 3 Camilo MARY FACS RVT RPSUSANA Newberry. [address] [facility], [address], [place], [address], [place]. tel:[phone] Referring Provider: Andreina Martel, [address] [place], [address]. tel:[phone] [facility], [address] [place] [address] [address] 1000Vickie [place], [id number], [place] tel:[phone] CVR - [place] - [place] Varicose veins of left lower extremities w oth complications Sep- 3 Camilo MARY FACS RVT RPVI K Rohith. [address] [facility], [address], [place], [address], [place]. tel:[phone] Referring Provider: Andreina Martel, [address] [place], [address]. tel:[phone] [facility], [address] [place] [address] Dr Mckeon 1000[address] 1000Vickie [place], [id number], [place] tel:[phone] CVR - [place] - [place] Varicose veins of left lower extremities w oth complications 3 Camilo Newberry. [address] [facility], [place] [address], [place], [address], [place]. tel:[phone] Referring Provider: Andreina Martel, [address] [place] [address], [address]. tel:[phone] Offic/outpt E&m Estab 5 Min Trial - Telemedicine [facility] KAN, [address] [place] [address] Dr Mckeon 1000[address] 1000Vickie [place], [id number], [place] tel:[phone] CVR - [place] - [place] Chronic venous htn w oth comp of bilateral low extrm 3 Camilo Newberry. [address] [address], [place], [address], [place]. tel:[phone] Referring Provider: Andreina Martel, [address] [place] [address], [address]. tel:[phone] Office/Outpt E&M Established 25 Mins [facility], [address] [place] [address] Dr Mckeon 1000Suite 1000Vickie MD, [id number], [place] tel:[phone] CVR - [place] - [place] Venous insufficiency (chronic) (peripheral) 3 Camilo MARY FACS Robert Newberry. [address] [facility], [facility] [address], [place], [address], [place]. tel:[phone] Referring Provider: Andreina Martel, [address] [place], [address]. tel:[phone] [facility], [address] [place] [address] Dr Mckeon 1000Suite 1000Vickie [place], [id number], [place] tel:[phone] CVR - [facility] Venous insufficiency (chronic) (peripheral)Pa in in right legPain in left leg 3 Camilo MARY FACS [facility] JAYNE Newberry. [address] [facility], [place] [address], [place], [address], [place]. tel:[phone] Referring Provider: Andreina Maretl, [address] [place], [address]. tel:[phone] Office/Oupt E&M New Pt 30 Mins [facility], [address] [facility] [address], [place], [id number], tel:[phone] CVR - [facility] Venous insufficiency (chronic) (peripheral)Es sential (primary) hypertensionPr uritus, unspecifiedCra mp and spasm 3 Camilo MARY FACS [facility] JAYNE Newberry. [address] [facility], [place] [address], [place], [address], [place]. tel:[phone] Referring Provider: Andreina Krishna MD A, [address] [place] [address], [address]. tel:[phone] Family History Family Member Type Diagnosis Age At Onset No Information Payers Payer name Insurance type Covered alliance party ID [employer] issac(s) Medical Assistance [facility] [id number] Social History Type Description Quantity Date Captured [...] Information Instructions Date Instruction Additional Infor jennifer Patient education booklet given Related to Chronic venous hypertension (idiopathic) with other complications of bilateral lower extremity Pre and post instruc tions reviewed and provided Related to Chronic venous hypertension (idiopathic) with other complications of bilateral lower extremity Diet education Related to Body mass index (BMI) 45.0-49.9, adult Giving Encouragement to exercise Related to Body mass index (BMI) 45.0-49.9, adult Lifestyle education Related to B todd mass index (BMI) 45.0-49.9, adult Diet education [...]
--- NOTE | ~2025-05-17 | MR_ITS ---
EXAM: MRI Lumbar Spine without Contrast. TECHNIQUE: Multiplanar multisequence MRI of the lumbar spine with performed without contrast. INDICATION: Worsening low back pain over one year, no trauma PRIOR: X-ray on October 07, 2023 FINDINGS: 5 non-rib bearing lumbar segments are present on x-ray Marrow and end-plates: Modic 2 signal changes are present at T10-11 and T11-12 There is a lesion in posterior L1 vertebral body with increased signal on T1 and T2 sequences and thick trabeculations consistent with benign vertebral hemangioma. Alignment: L4-5 demonstrates grade 1 anterolisthesis similar to the prior x-ray. Soft tissues: Paraspinal soft tissues and major vascular structures are unremarkable. Conus: The termination of conus medullaris is within normal limits at the level of L1. T12-L1: There is no disc bulge, herniation, spinal stenosis, or foraminal narrowing. L1-L2: There is disc desiccation and minimal disc bulge without spinal stenosis or foraminal narrowing. L2-L3: There is disc desiccation and minimal disc bulge without spinal stenosis or foraminal narrowing. L3-L4: There is disc desiccation and minimal disc bulge without spinal stenosis or foraminal narrowing. L4-L5: There is grade 1 anterolisthesis with pseudodisc bulge. There is mild to moderate facet arthropathy and bilateral facet joint effusions. There is no spinal stenosis. There is mild right greater than left foraminal narrowing. L5-S1: There is disc desiccation with circumferential broad-based disc bulge and very small central protrusion that contacts the thecal sac without causing spinal stenosis. There is mild facet arthropathy and trace fluid in the facet joint. There is no foraminal narrowing. MR/MR lumbar spine wo con IMPRESSION: L4-5: Bilateral facet joint effusions. Severe facet arthropathy. Also, there is grade 1 anterolisthesis. Electronically signed by: Candelario Hurtado MD 05/17/2025 05:36 PM EST
--- OUTSIDE RECORDS SUMMARY | 2025-05-17 17:57 | XMS_ITS | Encounter Summary ---
Author Organization [employer] Address [address] [facility] 7t [place] [address] Care Team Providers Care Apn Name Role Phone Andreina Mansfield MD Primary Care Provide r Encounter Details Date Type Department Care Team (Late st Contact Info) Description 08/29/2024 Orders Only [facility] MEDICINE [address] [place], [place] [phone] Andreina Mansfield MD [address] [place], [place] [phone] Social History Tobacco Use Types Packs/Day Years [...] Info) Description 06/13/2025 9:15 AM EST Telemedicine [facility] MEDICINE [address] [place] [address] Andreina Mansfield MD [address] [place] [address] 10/30/2025 1:00 PM EDT Office Visit [facility] OPTOMETRY [address] [place] [address] Constantino, Lindsey, OD [address] [place] [address] documented as of this encounter Visit Diagnoses Not on filedocumented in this encounter Additional Health Concerns Assessment Noted Time PHQ-9 Depression Total Score: 0 08/04/19 25 11:18 AM EST documented as of this encounter Care Teams Apn Relationship Specialty Start Date End Date Andreina Mansfield MD [address] [place] [address] PCP - General Family Medicine 03/03/18 documented as of this encounter
--- OUTSIDE RECORDS SUMMARY | 2025-05-17 17:57 | XMS_ITS | Encounter Summary ---
Author Organization [employer] Address [address] [facility] 7 [place] [address] Care Team Providers Care Security Shift Manager Name Role Phone Andreina Mansfield MD Primary Care Provide r Encounter Details Date Type Department Care Team (Latest Contact Info) Description 11/01/2018 Abstract [facility] CONVERSIONS Dental, Provider, DDS Social History Tobacco [...] Info) Description 06/13/2025 9:15 AM EST Telemedicine [facility] MEDICINE [address] [place] [address] Andreina Mansfield MD [address] [place] [address] 10/30/2025 1:00 PM EDT Office Visit [facility] OPTOMETRY [address] [place] [address] Lindsey Meeks, OD [address] [place] [address] documented as of this encounter Visit Diagnoses Not on filedocumented in this encounter Care Teams Security Shift Manager Relationship Specialty Start Date End Date Andreina Mansfield MD [address] [place] [address] PCP - General Family Medicine 03/03/18 documented as of this encounter
--- OUTSIDE RECORDS SUMMARY | 2025-05-17 17:57 | XMS_ITS | Encounter Summary ---
Author Organization [employer] Address [address] [facility] 7t [place] [address] Care Team Providers Care Cash Surrender Calculator Name Role Phone Andreina Mansfield MD Primary Care Provide r Reason for Visit * Reason Comments Med Refill Encounter Details Date Type Department Care Team ([facility] st Contact Info) Description 11/09/2023 Refill [facility] MEDICINE [address] [place], [place] [phone] Andreina Mansfield MD [address] [place], [place] [phone] Vitamin B12 deficiency Social History Tobacco Use [...] Info) Description 06/13/2025 9:15 AM EST Telemedicine [facility] MEDICINE [address] [place] [address] Andreina Mansfield MD [address] [place] [address] 10/30/2025 1:00 PM EDT Office Visit [facility] OPTOMETRY [address] [place] [address] Lindsey Meeks, OD [address] [place] [address] documented as of this encounter Visit Diagnoses Diagnosis Vitamin B12 deficiency Other B-complex deficiencies documented in this encounter Additional Health Concerns Assessment Noted Time PHQ-9 Depression Total Score: 5 09/22/19 24 2:19 PM EDT documented as of this encounter Care Teams Cash Surrender Calculator Relationship Specialty Start Date End Date Andreina Mansfield MD [address] [place] [phone] PCP - General Family Medicine 03/03/18 documented as of this encounter
--- OUTSIDE RECORDS SUMMARY | 2025-05-17 17:57 | XMS_ITS | Clinical Summary ---
Author Organization [facility] [employer] Address [address] [facility] [place] [phone] Phone Care Team Providers Care Landscaping Specialist Name Role Phone Andreina Mansfield MD Primary Care Provide r Allergies No known active allergies Medications amLODIPine (NORVASC) 10 mg tablet Take by [...] 2 times daily. - Apply externally Active hydroCHLOROthiaz marcello (HYDRODIURIL) 25 mg tabletIndication s:Primary hypertension Take 1 tablet (25 mg total) by mouth 1 (one) time each day. 90 each 2 05/08/20 25 Active hydroCHLOROthiaz marcello 12.5 mg tablet Take 1 tablet (12.5 mg total) by mouth 1 (one) time each day. 025 Discontinued Active Problems Problem Noted Date Diagnosed Date Atypical chest pain 05/26/2024 Varicose veins of both lower extremities with pa in 05/26/2024 Assessment & Plan (05/08/2025 1:52 PM EST): Patient has mild lower extremity swelling bilaterally, it is nonpitting. Her hydrochlorothiazide dosage was increased today due to hypertension. Advised that she wear compression stockings, elevate legs at rest and follow a low-sodium diet. Will reassess in several weeks. She has a history of varicose veins. Primary hypertension 05/26/2024 Assessment & Plan (05/08/2025 1:52 PM EST): Patient's blood pressure is elevated today 150/84. Will increase her hydrochlorothiazide to 25 mg daily. BMP in 1 week. Will have her monitor BP at home and bring log to next appt. I have reviewed with the patient the importance of a heart healthy lifestyle which includes eating a low-fat low-salt diet, getting regular exercise, maintaining a healthy weight, not smoking, and following up with routine medical care. Orders: hydroCHLOROthiazide (HYDRODIURIL) 25 mg tablet; Take 1 tablet (25 mg total) by mouth 1 (one) time each day. Basic metabolic panel; Future Encounters Date Type Department Care Team Description 05/08/2025 1:10 PM EST Office Visit [facility] [address] [facility] [address] [place] [address] Barbara Marques NP Primary hypertension (Primary Dx); Hyperlipidemia, unspecified hyperlipidemia type; Varicose veins of both lower extremities with pain from Last 3 Months Social History Tobacco [...] Sign Reading Time Taken Comments Blood Pressure 150/84 05/08/2025 12:50 PM EST Pulse 70 05/08/2025 12:50 PM EST Temperature - - Respiratory Rate - - Oxygen Saturation 97% 05/08/2025 12:50 PM EST Inhaled Oxygen Concentration - - Weight 118 kg (261 lb) 05/08/2025 12:50 PM EST Height 162.6 cm (5' 4 ) 05/08/2025 12:50 PM EST Body Mass Index 44.8 05/08/2025 12:50 PM EST Plan of Treatment Upcoming Encounters Date Type Department Care Team (Late st Contact Info) Description 06/09/2025 3:10 PM EST Office Visit [facility] - [facility] Center [address] [place] [address] Barbara Marques NP [address] [place] [address] [address] [place] [address] 06/26/2025 2:30 PM EST Appointment [facility] Bone Density [address] [place] [address] Health Maintenance Due Date Last Done Comments Pneumococcal Vaccine: 50+ Years (1 of 1 - PCV) 2007 RSV Immunization Adult Patients (1 - Risk 50-74 years 1-dose series) 2007 Zoster Vaccines (2 of 3) 08/24/2018 06/29/2018 Breast Cancer Screening 01/12/2020 01/11/2018 Colorectal Cancer Screening: Stool Based Tests (FOBT/FIT) 01/15/2024 12/10/2022 Falls Risk Assessment 01/15/2024 Osteoporosis Screening (Bone Density Screening) 01/15/2024 Social Influencers of Health Screening 01/15/2024 Depression Screening 2024 COVID-19 Vaccine (2024-2 6 season) 2025 05/15/2021, 10/19/2020, 09/28/2020 Influenza Vaccine (#1) 2025 , 06/29/2018 Hypertension/CHF/CAD Annual BMP Blood Test 05/01/2026 05/01/2025, 08/04/2024, 05/03/2024 Cholesterol Screening (Lipid Panel) 05/01/2030 05/01/2025, 05/03/2024 DTaP,Tdap,and Td Vaccines (2 - Td or Tdap) 12/25/2030 12/25/2020 Hepatitis C Screening Completed 05/01/2025 HIB Vaccines Aged Out No longer eligi [...] topic Insurance MEDICAID - [place] Care Teams Landscaping Specialist Relationship Specialty Start Date End Date Andreina Mansfield MD [address] [place] [phone] PCP - General 07/16/23
--- OUTSIDE RECORDS SUMMARY | 2025-05-17 17:57 | XMS_ITS | Encounter Summary ---
Author Organization [facility], Address [address] [place] [address] Phone Care Team Providers Care Wire Coiler Machine Operator Name Role Phone Andreina Mansfield MD Primary Care Provide r Encounter Details Date Type Department Care Team (Late st Contact Info) Description 02/11/2023 Documentation Only [facility], [address] [place] [address] Andreina Mansfield MD [address] [phone] Social History Tobacco Use Types [...] on filedocumented in this encounter Care Teams Wire Coiler Machine Operator Relationship Specialty Start Date End Date Andreina Masnfield MD [address] [phone] PCP - General Internal Medicine 02/09/23 documented as of this encounter
--- OUTSIDE RECORDS SUMMARY | 2025-05-17 17:57 | XMS_ITS | Clinical Summary ---
Author Organization [employer] Address [address] [place] [address] Care Team Providers Care Brick Pitcher Name Role Phone Andreina Mansfield MD Primary [...] AREA(S) TWICE DAILY DIRECTED 45 g 1 5 9:29 AM EST 04/21/20 25 Active amLODIPine (Norvasc) 10 MG tabletIndicatio ns:Primary hypertension TAKE 1 TABLET BY MOUTH EVERY DAY 90 tablet 1 04/21/20 25 Active Diclofenac Sodium 1 % gelIndications: Chronic bilateral low back pain without sciatica APPLY 2 GRAMS TOPICALLY TO AFFECTED AREA(S) TWICE DAILY DIRECTED 300 g 1 5 9:29 AM EST 04/21/20 25 Active hydroCHLOROthia zide 12.5 MG tabletIndicatio ns:Primary hypertension TAKE 1 TABLET BY MOUTH EVERY DAY 90 tablet 1 04/21/20 25 Active lidocaine (Lidoderm) 5 % patchIndication s:Chronic left-sided low back pain with left-sided sciatica Apply 1 patch topically Once per day. Remove & discard patch within 12 hours or as directed by . 30 patch 2 5 9:29 AM EST 04/21/20 25 Active triamcinolone (Kenalog) 0.1 % [...] Active Problems Problem Noted Date Diagnosed Date Chronic right shoulder pain 04/18/2025 Assessment & [...] EDT): See HPI Asymptomatic menopausal state 11/03/2023 Anxiety 09/22/2023 Right foot pain 07/15/2023 Abdominal pain [...] C/w PT Acetaminophen PRN Diclofenac gel PRN Recurrent major depressive disorder 12/18/2022 Assessment & Plan (11/01/2024 5:15 PM EDT): Continue to take citalopram 10 mg and follow-up with therapist Assessment & Plan (05/03/2024 10:47 AM EST): Counseling done [facility] called today Patient will like to have an hebrew speaking therapist Assessment & Plan (09/22/2023 2:39 PM EDT): PROGRESS NOTE: ID: Cat is a 68 y.o. White cis-female with previous documented hx of Depression No previous hx of MH services; who presents for anxiety and depressive sxs. Currently lives with son, his and grand children. 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 Struggling with divorce that occurred 2 years [...] Self Plan Patient to reach out to [facility] team as needed, Comply with medication , and continue to using effective coping mechanisms. Assessment & Plan (08/12/2023 9:41 AM EST): C/w citalopram 10mg daily Referral to [facility] RTC 3 months Assessment & Plan (07/15/2023 12:43 PM EST): I will start her on citalpram 10mg daily Patient will go to hebrew speaking therapist RTC 4 weeks televisit Assessment [...] family support PLAN: 1. Follow up with [facility]: Not recommended for follow-up 2. Patient goal is to engage in OP therapy 3. Behavioral Recommendations a. Decrease depression symptoms b. Increase coping mechanisms Stage 3b chronic kidney disease (CMS/HCC) 2022 Assessment & Plan (05/03/2024 10:46 AM [...] please be sure and verified if the pianos and organs salesperson that they want is going to accept [...] Problem Noted Date Diagnosed Date Resolved Date Anxiety and depression 04/18/202505/04 Left foot pain 07/15/2023 07/15/2023 Encounters * This document contains information received from the source organization and may not represent a complete record from that organization. 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; Epiretinal membrane (ERM) of both eyes; Dry eyes, bilateral 05/01/2025 Travel 04/20/2025 Refill [facility] [address] [place] [address] Andreina Mansfield MD Chronic left-sided low back pain with left-sided sciatica 04/20/2025 Refill [facility] [address] [place] [address] Hui Musa FNP Rash; Primary hypertension; Chronic bilateral low back pain without sciatica; Chronic left-sided low back pain with left-sided sciatica 04/18/2025 9:30 AM EDT Office Visit [facility] [address] [place] [address] Andreina Mansfield MD Screening for colon cancer (Primary Dx); Encounter for screening mammogram for malignant neoplasm of breast; Asymptomatic menopausal state; Encounter for preventive care; Forgetfulness; Anxiety and depression; Chronic right shoulder pain 04/18/2025 Travel 04/17/2025 Telephone [facility] [address] [place] [address] Andreina Mansfield MD Chart Prep 04/11/2025 Patient Outreach [facility] [address] [place] [address] Andreina Mansfield MD Pre-visit Planning ([facility] unable to reach [facility]) from Last 3 Months Immunizations Immunization Administration [...] Answer Date Recorded Patient Health Questionnaire-9 Score 16 04/18/2025 Patient Health Questionnaire-9 Score 16 04/18/2025 Last PHQ-9: Questionnaire Data Not on file 1 Housing Stability Answer Date Recorded What is [...] Answer Date Recorded Patient Health Questionnaire-2 Score 6 04/18/2025 Internet Access Answer Date Recorded Internet Access [...] Info) Description 06/13/2025 9:15 AM EST Telemedicine [facility] [address] [place] [address] Andreina Mansfield MD [address] [place] [address] 10/30/2025 1:00 PM EDT Office Visit [facility] [address] [place] [address] Lindsey Meeks, OD [address] [place] [address] Health Maintenance Due Date Last Done Comments CT Colonography 1957 Colonoscopy 1957 Dental Prophylaxis 1957 Dental X-Ray: Full Mouth 1957 FIT DNA/Cologuard 1957 Sigmoidoscopy 1957 Alcohol/Substance Use Screening 1969 Pneumococcal Vaccine: 50+ Years (1 of 1 - PCV) 2007 Zoster Vaccines (2 of 3) 08/24/2018 06/29/2018 Mammogram 01/12/2020 01/11/2018 Dental Oral Exam 02/08/2021 08/10/2020 Dental X-Ray: Bitewings 12/19/2021 12/18/2020, 08/10 Colorectal Cancer Screening 12/11/2023 FIT 12/11/2023 12/10/2022 FOBT 12/11/2023 12/10/2022 COVID-19 Vaccine ( season) 2025 05/15/2021, 10/19/2020, 09/28/2020 Influenza Vaccine (#1) 2025 05/14/2021, 2018 SDOH Screening 08/04/2025 08/04/2024 Depression Monitoring 10/17/2025 04/18/2025, 025 Diabetes: Hemoglobin A1C 05/01/2026 025, 08/04/2024, 11/03/2023, Additional history exists Tobacco Screening 05/15/2026 05/15/2025 Lipid Panel 05/01/2030 05/01/2025, 04/22, 10/30/2022, Additional history exists DTaP/Tdap/Td Vaccines (2 - Td or Tdap) 12/25/2030 12/25/2020 RSV Patients and Patients Aged 60 years or older (1 - 1-dose 75+ series) 2032 Cervical Cancer Screening Discontinued HPV/Cotest Discontinued 05/14/2021 Pap Smear Discontinued 05/14/2021 Hepatitis C Screening Completed 05/01/2025 HIB Vaccines [...] Procedure Name Priority Date/Time Associated Diagnosis Comments MR LUMBAR SPINE WO CONTRAST Routine 05/17/2025 4:47 PM EST Chronic left-sided low back pain with left-sided sciatica VITAMIN B12/FOLATE, SERUM PANEL Routine 05/01/2025 3:13 PM EST Encounter for preventive care TSH W/REFLEX TO FT4 Routine 05/01/2025 3 :13 PM EST Encounter for preventive care VITAMIN D,25-OH,TOTAL,IA Routine 05/01/2025 3:13 PM EST Encounter for preventive care LIPID PANEL, STANDARD Routine 05/01/2025 3:13 PM EST Encounter for preventive care HEPATITIS C AB W/REFL TO HCV RNA, QN, PCR Routine 05/01/2025 3:13 PM EST Encounter for preventive care HIV 1/2 ANTIGEN/ANTIBODY, FOURTH GENERATION W/RFL Routine 05/01/2025 3:13 PM EST Encounter for preventive care HEMOGLOBIN A1C Routine 05/01/2025 3:13 PM EST Encounter for preventive care COMPREHENSIVE METABOLIC PANEL Routine 05/01/2025 3:13 PM EST Encounter for preventive care CBC WITH AUTO DIFFERENTIAL Routine 05/01/2025 3:13 PM EST Encounter for preventive care OCT, RETINA - OU - BOTH EYES Routine 05/01/2025 2:00 PM EST Lamellar macular hole, left FECAL GLOBIN BY IMMUNOCHEMISTRY Routine 12/10/2022 12:00 [...] Recently Relevant to Health Maintenance Results * MR Lumbar Spine w/o Contrast (05/17/2025 4:47 PM EST) Anatomical Region Laterality Modality Spine, L-spine Magnetic Resonan ce 05/17/2025 4:47 PM EST Narrative 05/17/2025 5:39 PM EST [place] [address] Magnetic Resonance Report Signed Patient: Cat Hernandez MR#: [id number] 7 : 1955 Acct:[id number] Age/Sex: 69 / F ADM Date: 05/17/25 Loc: HO.MRI Attending Dr: Andreina Krishna MD Ordering Physician: Andreina Mansfield MD Date of Service: 05/17/25 Procedure(s): MR lumbar spine wo con Accession Number(s): [id number] cc: Andreina Mansfield MD Reason for Exam: worsening back pain EXAM: MRI Lumbar Spine without Contrast. TECHNIQUE: Multiplanar multisequence MRI of the lumbar spine with performed without contrast. INDICATION: Worsening low back pain over one year, no trauma PRIOR: X-ray on October 07, 2023 FINDINGS: 5 non-rib bearing lumbar segments are present on x-ray Marrow and end-plates: Modic 2 signal changes are present at T10-11 and T11-12 There is a lesion in posterior L1 vertebral body with increased signal on T1 and T2 sequences and thick trabeculations consistent with benign vertebral hemangioma. Alignment: L4-5 demonstrates grade 1 anterolisthesis similar to the prior x-ray. Soft tissues: Paraspinal soft tissues and major vascular structures are unremarkable. Conus: The termination of conus medullaris is within normal limits at the level of L1. T12-L1: There is no disc bulge, herniation, spinal stenosis, or foraminal narrowing. L1-L2: There is disc desiccation and minimal disc bulge without spinal stenosis or foraminal narrowing. L2-L3: There is disc desiccation and minimal disc bulge without spinal stenosis or foraminal narrowing. L3-L4: There is disc desiccation and minimal disc bulge without spinal stenosis or foraminal narrowing. L4-L5: There is grade 1 anterolisthesis with pseudodisc bulge. There is mild to moderate facet arthropathy and bilateral facet joint effusions. There is no spinal stenosis. There is mild right greater than left foraminal narrowing. L5-S1: There is disc desiccation with circumferential broad-based disc bulge and very small central protrusion that contacts the thecal sac without causing spinal stenosis. There is mild facet arthropathy and trace fluid in the facet joint. There is no foraminal narrowing. MR/MR lumbar spine wo con IMPRESSION: L4-5: Bilateral facet joint effusions. Severe facet arthropathy. Also, there is grade 1 anterolisthesis. Electronically signed by: Candelario Hurtado MD 05/17/2025 05:36 PM [facility] Dictated By: Candelario Hurtado MD Signed By: <Electronically signed by Candelario Hurtado MD in OV> 05/17/25 1736 DD/ 1647 TD/TT: 05/17/25 1703 School Age Program Teacher: Procedure Note Donotuseinterpreter, Image - 05/17/2025 [place] [address] Magnetic Resonance Report Signed Patient: Cat HernandezMR#: [id number] 7 : 1955cct:[id number] Age/Sex: 69 / FADM Date: 05/17/25 Loc: HO.MRI Attending Dr: Andreina Krishna MD Ordering Physician: Andreina Mansfield MD Date of Service: 05/17/25 Procedure(s): MR lumbar spine wo con Accession Number(s): [id number] cc: Andreina Mansfield MD Reason for Exam: worsening back pain EXAM: MRI Lumbar Spine without Contrast. TECHNIQUE: Multiplanar multisequence MRI of the lumbar spine with performed without contrast. INDICATION: Worsening low back pain over one year, no trauma PRIOR: X-ray on October 07, 2023 FINDINGS: 5 non-rib bearing lumbar segments are present on x-ray Marrow and end-plates: Modic 2 signal changes are present at T10-11 and T11-12 There is a lesion in posterior L1 vertebral body with increased signal on T1 and T2 sequences and thick trabeculations consistent with benign vertebral hemangioma. Alignment: L4-5 demonstrates grade 1 anterolisthesis similar to the prior x-ray. Soft tissues: Paraspinal soft tissues and major vascular structures are unremarkable. Conus: The termination of conus medullaris is within normal limits at the level of L1. T12-L1: There is no disc bulge, herniation, spinal stenosis, or foraminal narrowing. L1-L2: There is disc desiccation and minimal disc bulge without spinal stenosis or foraminal narrowing. L2-L3: There is disc desiccation and minimal disc bulge without spinal stenosis or foraminal narrowing. L3-L4: There is disc desiccation and minimal disc bulge without spinal stenosis or foraminal narrowing. L4-L5: There is grade 1 anterolisthesis with pseudodisc bulge. There is mild to moderate facet arthropathy and bilateral facet joint effusions. There is no spinal stenosis. There is mild right greater than left foraminal narrowing. L5-S1: There is disc desiccation with circumferential broad-based disc bulge and very small central protrusion that contacts the thecal sac without causing spinal stenosis. There is mild facet arthropathy and trace fluid in the facet joint. There is no foraminal narrowing. MR/MR lumbar spine wo con IMPRESSION: L4-5: Bilateral facet joint effusions. Severe facet arthropathy. Also, there is grade 1 anterolisthesis. Electronically signed by: Candelario Hurtado MD 05/17/2025 05:36 PM EST Dictated By: Candelario Hurtado MD Signed By: <Electronically signed by Candelario Hurtado MD in OV> 05/17/25 1736 DD/ 1647 TD/TT: 05/17/25 1703 School Age Program Teacher: Andreina Krishna MD IMG MRI PROCEDURES Fi nal Result * Vitamin D, 25-Hydroxy, Total, Immunoassay (05/01/2025 3:13 PM EST) Vitamin D 25-OH Total 44.2 >30 ng/mL [facility] Comment: Health Based Reference Values*< 20 ng/mL [id number] ng/mL Insufficient> 30 ng/mL Sufficient*Marleny MCCULLOUGH. N [...] Krishna MD LAB BLOOD ORDERABLES Final Result [facility] [address] [place] [phone] * Vitamin B12/Folate, Serum Panel (05/01/2025 3:13 PM EST) Pathologist [facility] Vitamin B12 390 200 - 900 pg/mL [facility] Comment:NORMAL 200-900 PG/ML INDETERMINATE 160-199 PG/ML DEFICIENT < 160 PG/ML Folate 9.2 > or = 4.0 ng/mL [facility] Comment:Reference Values:> o r = 4.0 ng/mL< 4.0 ng/mL suggests folate deficiency Methotrexate, aminopterin and folinic acid(leucovorin) are chemotherapeutic agents whose molecularstructures are similar to folate; therefore, the Architectfolate assay cannot be used for patients using these drugs. Blood Venous blood specimen / Unknown 05/01/2025 3:13 PM EST 05/01/2025 3:57 PM EST us Andreina Krishna MD LAB BLOOD ORDERABLES Final Result Performing Organization Address City/[facility]/ZIP Co de Phone Number [facility] [address] [place] [phone] * TSH with Reflex to Free T4 (05/01/2025 3:13 PM EST) [facility] TSH reflex Free T4 0.74 0.32 - 4.0 uIU/mL [facility] Blood Venous blood specimen / Unknown 05/01/2025 3:13 PM EST 05/01/2025 3:57 PM EST us Andreina Krishna MD LAB BLOOD ORDERABLES Final Result [facility] [address] [place] [phone] * (ABNORMAL) CBC auto differential (05/01/2025 3:13 PM EST) [facility] White Blood Count 7.7 4.8 - 10.8 X10*3/uL [facility] Red Blood Count 4.32 4.20 - 5.50 X10*6/uL [facility] Hemoglobin 11.2(L) 12.0 - 16.0 g/dl [facility] Hematocrit 35.9(L) 37.0 - 47.0 % [facility] Mean Corpuscular Volume 83.1 80.0 - 98.0 fL [facility] Mean Corpuscular Hemoglobin 25.9(L) 27.0 - 33.0 pg [facility] Mean Corpuscular HGB Conc 31.2 31.0 - 35.0 g/dl [facility] Red Cell Distribution Width 14.5 11.0 - 16.0 % [facility] Platelet Count 287 160 - 400 X10*3/uL [facility] Mean Platelet Volume 11.0 9.4 - 12.3 fL [facility] Neutrophils Percent Auto 66.0 45 - 73 % [facility] Imm Gran Pct Auto 0.3 0.0 - 0.4 % [facility] Lymphocytes Percent Auto 22.2 20 - 40 % [facility] Monocytes Percent Auto 10.7 2 - 11 % [facility] Eosinophils Percent Auto 0.4 0 - 4 % [facility] Basophils Percent Auto 0.4 0 - 2 % [facility] NRBC Pct Auto 0.0 0.0 - 0.2 /100WBC [facility] Neutrophils Absolute Auto 5.1 2.0 - 8.3 x10*3/uL [facility] Imm Gran Abs Auto 0.02 0.00 - 0.03 X10*3/uL [facility] Lymphocytes Absolute Auto 1.7 1.2 - 4.9 X10*3/uL [facility] Monocytes Absolute Auto 0.8 0.1 - 1.2 X10*3/uL [facility] Eosinophils Absolute Auto 0.0 0.0 - 0.4 X10*3/uL [facility] Basophils Absolute Auto 0.0 0.0 - 0.2 X10*3/uL [facility] NRBC Abs Auto 0.000 0.0 - 0.012 X10*3/uL [facility] Blood Venous blood specimen / Unknown 05/01/2025 3:13 PM EST 05/01/2025 3:57 PM EST Andreina Krishna MD LAB BLOOD ORDERABLES Final Result Performing Organization Address [facility]/ZIP Co de Phone Number [facility] [address] [place] [phone] [phone] * Hepatitis C Antibody with Reflex to HCV, RNA, Quantitative, Real-Time PCR (05/01/2025 3:13 PM EST) Hepatitis C Antibody Nonreactive Nonreactive [facility] Comment:Antibodies to HCV no t detected; does not exclude early acuteHCV infection. Blood Venous blood specimen / Unknown 05/01/2025 3:13 PM EST 05/01/2025 3:57 PM EST Andreina Krishna MD LAB BLOOD ORDERABLES Final Result Performing Organization Address [facility] Co de Phone Number [facility] [address] [place] [phone] * HIV-1/2 Antigen and Antibodies, Fourth Generation, with Reflexes (05/01/2025 3:13 PM EST) HIV AB/AG Nonreactive Nonreactive [facility] Comment:HIV-1 p24 Ag and/or HIV-1/HIV-2 Ab not detected.A test result that is nonreactive does not exclude thepossibility of exposure to or infection with HIV-1 and/orHIV-2. Nonreactive results in this assay for individualswith prior exposure to HIV-1 and/or HIV-2 may be due toantigen and antibody levels that are below the limit ofdetection of this assay.The [employer] Productivity HIV Ag/Ab Combo assay result andsupplemental assay results should be interpreted inconjunction with the patient's clinical presentation,history and other laboratory results. If the results areinconsistent with clinical evidence, additional testing issuggested to confirm the result. Blood Venous blood specimen / Unknown 05/01/2025 3:13 PM EST 05/01/2025 3:57 PM EST us Andreina Krishna MD LAB BLOOD ORDERABLES Final Result Performing Organization Address [facility] de Phone Number [facility] [address] [place] [phone] * Hemoglobin A1c (05/01/2025 3:13 PM EST) Hemoglobin A1c 5.8 <6.0 % [facility] Comment:Hemoglobin A1C Refer ence Range Adults: 4.8 - 6.0 % Non diabetic: < 6.0 % Goal: < 7.0 %Additional Action Suggested: > 8.0 %Note: Hemoglobin A1c results are invalid for patients with abnormal amounts of HbF. Blood transfusions may impact the HbA1c concentration in the patient sample. Estimated Average Glucose 120 mg/dL [facility] Comment:eAG = Estimated ave rage glucose which is %A1C expressed asaverage glucose, using the formula of the [id number] Glucose study (ADAG), Diabetes Care, Vol.31,#8,2007 Blood Venous blood specimen / Unknown 05/01/2025 3:13 PM EST 05/01/2025 3:57 PM EST us Andreina Krishna MD LAB BLOOD ORDERABLES Final Result Performing Organization Address [facility] Co nc Phone Number [facility] [address] [place] [phone] * Lipid Panel, Standard (05/01/2025 3:13 PM EST) Triglycerides 128 <150 mg/dL [facility] Comment:Desirable Triglyceri de: less than 150 mg/dLBorderline High Triglyceride 150-199 mg/dLHigh Triglyceride: 200-499 mg/dLVery High Triglyceride: greater than or equal to 5OO mg/dL Cholesterol 181 <200 mg/dL [facility] Comment:Desirable Cholestero l: less than 200 mg/dLBorderline High Cholesterol: 200-239 mg/dLHigh Cholesterol: greater than 239 mg/dL LDL Cholesterol Calculated 89 <100 mg/dL [facility] Comment:Desirable LDL: less than 100 mg/dLNear Optimal/Above Optimal LDL: 110- 129 mg/dLBorderline High LDL: 130-159 mg/dLHigh LDL: 160-189 mg/dLVery High LDL: greater than or equal to 190 mg/dL HDL Cholesterol 67 >40 mg/dL [facility] Comment:Desirable HDL: great er than 40 mg/dL Note: This HDL assay may give artificially low results in patients with liver disease. Blood Venous blood specimen / Unknown 05/01/2025 3:13 PM EST 05/01/2025 3:57 PM EST us Andreina Krishna MD LAB BLOOD ORDERABLES Final Result [facility] [address] [place] [phone] * (ABNORMAL) Comprehensive Metabolic Panel (05/01/2025 3:13 PM EST) Sodium 141 135 - 145 mmol/L [facility] Potassium 3.9 3.3 - 5.1 mmol/L [facility] Chloride 104 96 - 108 mmol/L [facility] Carbon Dioxide 27 22 - 29 mmol/L [facility] Anion Gap 14 12 - 20 [facility] Urea Nitrogen (BUN) 30(H) 9 - 16 mg/dL [facility] Creatinine, Serum 1.41(H) 0.5 - 1.4 mg/dL [facility] Estimated Glomerular Filt Rate 37 [facility] Comment:Chronic Kidney Disea se: Estimated GFR < 60 mL/min/[id number] Kidney Disease: Estimated GFR < 15 mL/min/1.73m2 Glucose 81 60 - 115 mg/dL [facility] Calcium 8.7 8.4 - 10.2 mg/dL [facility] Bilirubin, Total 0.2 0.0 - 1.0 mg/dL [facility] Aspartate Amino Transferase 25 5 - 31 U/L [facility] Alanine Aminotransferase 11 0 - 31 U/L [facility] Total Protein 6.9 6.5 - 8.0 g/dL [facility] Albumin Level 4.1 3.5 - 5.0 g/dL [facility] Alkaline Phosphatase 87 39 - 117 U/L [facility] Blood Venous blood specimen / Unknown 05/01/2025 3:13 PM EST 05/01/2025 3:57 PM EST us Andreina Krishna MD LAB BLOOD ORDERABLES Final Result [facility] [address] [place] [phone] * OCT, Retina - OU - Both Eyes (05/01/2025 2:00 PM EST) Narrative Lindsey Meeks, OD - 05/15/2025 9:30 AM EST Images from the original result were not included. OCT [facility] [employer] Optical Coherence Tomography Interpretation Report Measurements: OD OS Macula Thickness 214 microns 259 microns Test findings: OD: Normal foveal contour with parafoveal epiretinal membrane, no cystoid macular edema, no retinal pigment epithelium disruption, no subretinal fluid OS: Lamellar hole secondary to significant epiretinal membrane with traction nasally, nasal schisis, mild inferior schisis, no retinal pigment epithelium disruption, no subretinal fluid Impression and Plan: Findings stable to previous scans. Will monitor at her next exam. us Lindsey Meeks OD OPHTH TOMOGRAPHY Final Result * Fecal Globin by Immunochemistry (12/10/2022 12:00 AM EDT) Fecal Globin By Immunochemistry SEE NOTE [facility] Comment: FECAL GLOBIN BY IMMUNOCHEMISTRY Micro Number: [id number] Test Status: Final Specimen Source: Insure () fobt test card Specimen Quality: Adequate Fecal Globin: Not Detected Test results may be invalid as no date of collection was provided. Specimens are stable for 14 days. 12/10/2022 12/17/2022 1:0 4 PM EDT Narrative [facility] - 12/18/2022 10:41 AM EDT FASTING: UNKNOWN Andreina Krishna MD LAB BODY FLUIDS AND S TOOLS ORDERABLES Final Result [facility] [address], [place] [address] [facility] [address] [place] [phone] * THINPREP TIS PAP AND HPV mRNA E6/E7 REFLEX HPV 16,18/45 (05/14/2021 4:29 PM EST) Clinical Information: None given [facility] COMMENT SEE COMMENT [facility] ON [...] has been evaluated with computer assisted technology. [facility] Jacquard Loom Card Changer: SEE COMMENT [facility] Comment: SXA, CT(ASCP) CT screening location: [place] [address] HPV nRNA E6/E7 Not Detected Not Detected [facility] Evolver Comment: Methodology: Spot Welder Line-Mediated Amplification This assay detects E6/E7 viral messenger RNA (mRNA) from 14 high-risk HPV types (16,18,31,33,35,39,45,51,52,56,58,59,66,68). The analytical performance characteristics of this assay have been determined by [employer]. The modifications have not been cleared or approved by the FDA. This assay has been validated pursuant to the CLIA regulations and is used for clinical purposes. For additional information, please refer to http://education.[employer]Out[employer].MESI/faq/TQJ926x0 (This link if provided for information/ educational purposes only.) Interpretation/Re sult: Negative for intraepithelial lesion or malignancy. [facility] LMP: NONE GIVEN [facility] Prev. BX: NONE [facility]IVEN [facility] Prev. PAP: NONE GIVEN [facility] SOURCE: None given [facility] Statement Of Adequacy: SEE COMMENT [facility] Comment: Satisfactory for evaluation. Endocervical/transformation zone component absent. 05/14/2021 4:29 PM EST Andreina Krishna MD LAB PATHOLOGY ORDERAB LES Final Result [facility] [address] * DIGITAL BILATERAL SCREEN 1 (01/11/2018 [...] Most Recently Relevant to Health Maintenance Insurance [facility] [place] AD[place] Care Teams Brick Pitcher Relationship Specialty Start Date End Date Andreina Mansfield MD [address] [place] [id number] PCP - General Family Medicine 03/03/18
--- OUTSIDE RECORDS SUMMARY | 2025-05-17 17:57 | XMS_ITS | Clinical Summary ---
Author Organization [facility] Address [address] [facility] [address] [place] [id number] Care Team Providers Care Clerical Production Worker Name Role Phone Andreina Mansfield MD Primary [...] Colorectal Cancer Screening: Sigmoidoscopy 2006 Pneumococcal Vaccine: 50+ Ye ars (1 of 1 - PCV) 2007 Influenza Vaccine (#1) 2025 Hepatitis B Vaccine Aged Out No longe r eligible based on patient's age to complete this topic Insurance Medicaid [place] Care Teams Clerical Production Worker Relationship Specialty Start Date End Date Andreina Mansfield MD [address] [place] [address] [place] [phone] PCP - General Internal Medicine 02/09/23
--- OUTSIDE RECORDS SUMMARY | 2025-05-17 17:57 | XMS_ITS | Encounter Summary ---
Author Organization [employer] Address [address] [facility] 7 [place] [address] Care Team Providers Care Clinical Informatics Manager Name Role Phone Andreina Mansfield MD Primary Care Provide r Reason for Visit * Reason Onset Date Comments Call Back Request 11/12/2023 Encounter Details Date Type Department Care Team ([facility] Contact Info) Description 11/12/2023 Telephone [facility] MEDICINE [address] [place], [place] [phone] Andreina Mansfield MD [address] [place], [place] [phone] Call Back Request Social History Tobacco Use [...] for 3 months. Please contact son at [phone] documented in this encounter Plan of Treatment Upcoming Encounters Date Type Department Care Team (Late st Contact Info) Description 06/13/2025 9:15 AM EST Telemedicine [facility] MEDICINE [address] [place] [address] Andreina Mansfield MD [address] [place] [address] 10/30/2025 1:00 PM EDT Office Visit [facility] OPTOMETRY [address] [place] [address] Constantino, Lindsey, OD [address] [place] [address] documented as of this encounter Visit Diagnoses Not on filedocumented in this encounter Additional Health Concerns Assessment Noted Time PHQ-9 Depression Total Score: 5 09/22/19 24 2:19 PM EDT documented as of this encounter Care Teams Clinical Informatics Manager Relationship Specialty Start Date End Date Andreina Mansfield MD [address] [place] [address] PCP - General Family Medicine 03/03/18 documented as of this encounter
--- OUTSIDE RECORDS SUMMARY | 2025-05-17 17:57 | XMS_ITS | Encounter Summary ---
Author Organization [employer] Address [address] [facility] 7t [place] [address] Care Team Providers Care Income Tax Investigator Name Role Phone Andreina Mansfield MD Primary Care Provide r Reason for Visit * Reason Onset Date Comments abby 05/02/2025 [facility] outreach Encounter Details Date Type Department Care Team ([facility] st Contact Info) Description 05/02/2025 Telephone [facility] MEDICINE [address] [place], [place] [phone] Jocelyn Hahn, MARIO mora ([facility] outreach) Social History Tobacco Use Types Packs/Day Years [...] encounter Miscellaneous Notes * Telephone Encounter - Jocelyn Hahn RN - 05/17/2025 8:34 AM EST RN outreach completed for Cologuard?? follow-up. Left voicemail for patient reminding them to complete their Cologuard?? test and explaining the importance of colorectal cancer screening. Informed patient that calls are returned on Tuesdays and provided clinic callback number ([phone]). Requested that if they return the call on a different day, patient access representatives send a message to the RN's inbox. Will attempt follow-up call again next week if no response. Optional add-on for repeat attempts: This was call attempt #1 Will close outreach if no response after third attempt. * Telephone Encounter - Jocelyn Hahn RN - 05/02/2025 9:48 AM EST RN outreach completed for Cologuard?? follow-up. Spoke with patient regarding the importance of completing colorectal cancer screening and reviewed how to properly collect and return the Cologuard?? kit. Discussed common barriers and provided education on options for UPS drop-off or scheduling a home pick-up. Patient verbalized understanding and plans to complete the test. Encouraged patient to call the clinic if additional questions or barriers arise. documented in this encounter Plan of Treatment Upcoming Encounters Date Type Department Care Team (Late st Contact Info) Description 06/13/2025 9:15 AM EST Telemedicine [facility] MEDICINE [address] [place] [address] Andreina Mansfield MD [address] [place], [place] [phone] 10/30/2025 1:00 PM EDT Office Visit [facility] OPTOMETRY [address] [place] [address] Lindsey Meeks, OD [address] [place], [place] [phone] documented as of this encounter Visit Diagnoses Not on filedocumented in this encounter Additional Health Concerns Assessment Noted Time PHQ-9 Depression Total Score: 16 025 10:45 AM EDT documented as of this encounter Care Teams Income Tax Investigator Relationship Specialty Start Date End Date Andreina Mansfield MD [address] [place], [place] [phone] PCP - General Family Medicine 03/03/18 documented as of this encounter
--- OUTSIDE RECORDS SUMMARY | 2025-05-17 17:57 | XMS_ITS | Encounter Summary ---
Author Organization [employer] Address [address] [facility] 7t [place] [address] Care Team Providers Care Health Education Director Name Role Phone Andreina Mansfield MD Primary Care Provide r Encounter Details Date Type Department Care Team (Late st Contact Info) Description 05/19/2023 Abstract [facility] MEDICINE [address] [place], [place] [phone] Griselda Tan Social History Tobacco Use Types [...] Info) Description 06/13/2025 9:15 AM EST Telemedicine [facility] MEDICINE [address] [place] [address] Andreina Mansfield MD [address] [place] [address] 10/30/2025 1:00 PM EDT Office Visit [facility] OPTOMETRY [address] [place] [address] Constantino, Lindsey, OD [address] [place] [address] documented as of this encounter Visit Diagnoses Not on filedocumented in this encounter Additional Health Concerns Assessment Noted Time PHQ-9 Depression Total Score: 0 10/31/19 23 2:52 PM EDT documented as of this encounter Care Teams Health Education Director Relationship Specialty Start Date End Date Andreina Mansfield MD [address] [place], [place] [phone] PCP - General Family Medicine 03/03/18 documented as of this encounter
--- OUTSIDE RECORDS SUMMARY | 2025-05-17 17:57 | XMS_ITS | Clinical Summary ---
Author Organization [facility] Address [address] [place] [address] Care Team Providers Care Six Sigma Black Belt Engineer Name Role Phone Andreina Mansfield MD Primary [...] Administration Dates Next Due Covid-19, Pfizer, mRNA, Ingham valent, PF 30 mcg/0.3 mL dose (for [...] 1957 Hepatitis C Screening 1957 Sigmoidoscopy 1957 Pneumococcal Vaccine: 50+ Years (1 of 2 - PCV) 1976 Mammogram 1997 Osteoporosis Screening 2007 Zoster Vaccines (2 of 3) 08/24/2018 06/29/2018 Alcohol/Substance Use Screening 2024 Depression Screening and Follow-Up 2024 Fall Risk Screening 2024 Health Care Proxy Review 2024 Social Drivers of Health Annual Screening 2024 Influenza Vaccine (#1) 2025 , 06/29/2018 COVID-19 Vaccine ( - 2024-2 6 season) 2025 05/15/2021, 10/19/2020, 09/28/2020 DTaP,Tdap,and Td Vaccines (2 - Td or Tdap) 12/25/2030 12/25/2020 RSV Vaccine (60+ years old a nd patients) (1 - 1-dose 75+ series) 2032 Hepatitis B Vaccines Aged Out No long er eligible based on patient's age to complete this topic Medical Devices Implanted Type Area Detective Captain Device Identifier Shelf Expiration Date Model / Serial / Lot Lens Intraocular [employer] Natural Single Piece Acrylic With Blue Light Filter [id number] 21.0d - [id number] - [id number] Implanted:Qty: 1 on 02/05/2021 by Leobardo Galicia MD at [facility] Lens Left: Eye NILSA 10/13/2025 SN60WF 21.0 / [id number] / Lens Intraocular [employer] Natural Single Piece Acrylic With Blue Light Filter [id number] 21.0d - [id number] - [id number] Implanted:Qty: 1 on 03/04/2021 by Leobardo Galicia MD at [facility] Lens Right: Eye NILSA 11/18/2025 SN60WF 21.0 / [id number] / Insurance [facility]FREE CARE [facility] Advance Directives * Full Code (Latest Code Status on File) Date Activated Date Inactivated Comments 03/04/2021 11:02 AM 03/04/2021 2:31 PM * Full Code Date Activated Date Inactivated Comments 02/05/2021 12:22 PM 02/05/2021 4:11 PM Care Teams Six Sigma Black Belt Engineer Relationship Specialty Start Date End Date Andreina Mansfield MD [address] [place] [id number] PCP - General 11/13/20
--- OUTSIDE RECORDS SUMMARY | 2025-05-17 17:57 | XMS_ITS | Encounter Summary ---
Author Organization [employer] Address [address] [facility] 7 [place] [address] Care Team Providers Care Metal Caster Name Role Phone Andreina Mansfield MD Primary Care Provide r Reason for Visit * Reason Onset Date Comments Requesting Call Back 07/22/2023 Encounter Details Date Type Department Care Team ([facility] st Contact Info) Description 07/22/2023 Telephone [facility] MEDICINE [address] [place], [place] [phone] Andreina Mansfield MD [address] [place], [place] [phone] Requesting Call Back Social History Tobacco Use [...] 9:47 AM EST Tc from Wendi from [facility] requesting call back regarding referral that was faxed over. Wendi stated their office specializes in pain management and they received a referral for orthopedic surgery.Wendi is requesting clarification. Please contact Wendi at [phone]. documented in this encounter Plan of Treatment Upcoming Encounters Date Type Department Care Team (Late st Contact Info) Description 06/13/2025 9:15 AM EST Telemedicine [facility] MEDICINE [address] [place] [address] Andreina Mansfield MD [address] [place] [address] 10/30/2025 1:00 PM EDT Office Visit [facility] OPTOMETRY [address] [place] [address] Lindsey Meeks, OD [address] [place] [address] documented as of this encounter Visit Diagnoses Not on filedocumented in this encounter Additional Health Concerns Assessment Noted Time PHQ-9 Depression Total Score: 0 10/31/19 23 2:52 PM EDT documented as of this encounter Care Teams Metal Caster Relationship Specialty Start Date End Date Andreina Mansfield MD [address] [place] [phone] PCP - General Family Medicine 03/03/18 documented as of this encounter
== END 2025-05-17 16:23 | disposition home or self-care (01) ==
LOC: HO.MRI 16:22
PROVIDERS: PCP Internal Medicine; Visit Provider Internal Medicine
DX: G89.29 Other chronic pain (principal); M54.42 Lumbago with sciatica, left side
CPT/HCPCS: 72148